=== PATIENT | male | born 1980 | race Hispanic/Latino ===

== ENCOUNTER 2020-07-14 08:13 | Observation (INO) | payer MEDICAID, SELFPAY ==
[2020-07-14] VITALS (12 sets, daily range): BP systolic 113–144; BP diastolic 66–94; PULSE 76–89; RESP 16–22; TEMP 36.9–37; O2SAT 96–98; BMI 25.4
--- NOTE | ~2020-07-14 | CT_ITS ---
EXAMINATION: CT abdomen pelvis w con DATE: 07/14/2020 10:34 INDICATION: Abdominal pain TECHNIQUE: Computed tomography (CT) of the abdomen and pelvis was performed with 100 mL Omnipaque-350 intravenous contrast. Automated exposure control and iterative reconstruction technique were employe d. The dose-length product was 348.09 mGy-cm. COMPARISON: None FINDINGS: Lung bases are clear. Heart size is normal. No pericardial or pleural effusion. The distal esophagus is prominently dilated to up to 6.5 cm in diameter and fluid-filled with diffuse edematous-appearing wall thickening which could be related to reflux esophagitis. Postoperative changes are seen at the g astroesophageal junction. Additional surgical clip in the region of the left manjula hepatis. Liver, ga llbladder, spleen, pancreas, bilateral adrenal glands and kidneys are normal. Multiple fluid-filled b ut not frankly dilated loops of small bowel which measure up to a maximal 2.8 cm in diameter but whic h tapers gradually in the mid ileum with no discrete transition to suggest obstruction and this could be more consistent with an ileus. Small amount of pseudo-feces scattered throughout the more distal aspect of the fluid-filled small bowel consistent with delayed transit. Colon and appendix are unrema rkable. Bilateral fat-containing inguinal hernias, small on the right and large extending to the scro haydne on the left. Bladder is normal. No free intraperitoneal gas or fluid. No pathologically enlarged abdominal or pelvic lymphadenopathy. IMPRESSION: 1. Fluid-filled and prominently dilated distal esophagus with diffuse edematous wall thickening consi stent with reflux esophagitis. This suggests some degree of either mechanical or functional obstructi on at the level the gastroesophageal junction where there are postoperative changes. Correlate with c linical/surgical history and if not previously evaluated consider further evaluation with endoscopy. 2. Multiple fluid-filled but not technically dilated small bowel without discrete transition point to suggest obstruction most likely representing a reactive ileus. 3. Small right and large left fat-containing inguinal hernias. Reviewed, dictated and finalized at location A. ETING PROGRAM COORDINATOR IMPRESSION: 1. Fluid-filled and prominently dilated distal esophagus with diffuse edematous wall thickening consistent with reflux esophagitis. This suggests some degree of either mechanical or functional obstruction at the level the gastroesophagea l junction where there are postoperative changes. Correlate with clinical/surgi vianey history and if not previously evaluated consider further evaluation with en doscopy. 2. Multiple fluid-filled but not technically dilated small bowel without discre te transition point to suggest obstruction most likely representing a reactive ileus. 3. Small right and large left fat-containing inguinal hernias.
[2020-07-14 09:05] LABS: Basophils Percent Auto 0.1 % (0.2-1.2); Hematocrit 45.6 % (42.0-52.0); Hemoglobin 15.9 g/dL (14.0-18.0); Immature Granulocyte Absolute 0.02 K/mm3 (0.00-0.031); Immature Granulocyte Percent A 0.2 % (0-0.5); Lymphocytes Absolute Auto 1.01 K/mm3 (0.9-3.2); Lymphocytes Percent Auto 11.8 % (18.3-44.2); Mean Corpuscular HGB Conc 34.9 g/dl (32-36); Mean Corpuscular Hemoglobin 30.2 pg (26-34); Mean Corpuscular Volume 86.5 fl (80-100); Mean Platelet Volume 9.8 fl (7.4-10.4); Monocytes Absolute Auto 0.4 K/mm3 (0.1-0.6); Monocytes Percent Auto 4.3 % (2.6-8.5); Neutrophils Absolute Auto 7.2 K/mm3 (1.3-6.7); Neutrophils Percent Auto 83.6 % (45.5-73.1); Platelet Count Result 320 k/mm3 (150-375); Red Blood Count 5.27 M/mm3 (4.6-6.20); Red Cell Distribution Width 12.9 % (11.5-14.5); White Blood Count 8.6 K/mm3 (4.5-10.0)
[2020-07-14] MEDS: SODIUM CHLORIDE 0.9% IV 1,000 ML 999 ML IV CONT (09:05)
[2020-07-14] MEDS: ONDANSETRON INJ 4 MG/2 ML VIAL IV PUSH ×2 (09:06→14:47)
[2020-07-14] MEDS: MORPHINE SULFATE (*CRX) 4 MG/ML INJ IV PUSH ×2 (09:06→11:44)
[2020-07-14 09:14] LABS: Lipase 54 U/L (23-300)
[2020-07-14 09:22] LABS: Add Urine Microscopic? YES; Appearance Urine Clear (Clear); Bacteria Urine Trace /hpf; Bilirubin Urine Negative (Negative); Blood Urine Negative (Negative); Color Urine Yellow (Yellow); Glucose Urine UA Negative (Negative); Ketones Urine 1+ mg/dL (Negative); Leukocyte Esterase Ur Negative LEU/UL (Negative); Mucus Urine Heavy /lpf; Nitrate Urine Negative (Negative); Protein Urine 2+ mg/dL (Negative); Squamous Epithelial Cell Urine Rare /hpf (Few); WBC Urine 0-3 /hpf
[2020-07-14 09:23] LABS: Specific Grav Ur 1.035 (1.001-1.035)
[2020-07-14 09:58] LABS: Alanine Aminotransferase 30 U/L (4-50); Albumin Level 4.8 g/dL (3.5-5.1); Alkaline Phosphatase 84 U/L (38-126); Anion Gap 12 mmol/L (8-16); Aspartate Amino Transferase 34 U/L (17-59); Bilirubin,Total 0.8 mg/dL (0.2-1.3); Blood Urea Nitrogen 20 mg/dL (9-20); Calcium 10.1 mg/dL (8.4-10.2); Carbon Dioxide 21 mmol/L (22-30); Chloride 108 mmol/L (98-107); Estimated CRCL calculation 90 ml/min; Estimated Glomerular Filt Rate > 60; Glucose 154 mg/dL (75-110); Potassium 3.8 mmol/L (3.4-5.0); Sodium 141 mmol/L (137-145)
--- NOTE | 2020-07-14 10:13 | ED.GENADULT ---
HPI - General Adult General Chief complaint: Abdominal Pain Stated complaint: ABD Pain, Vomiting Time Seen by Provider: 07/14/20 08:22 History of Present Illness HPI narrative: Patient 39-year-old gentleman who presents the emergency department with chief complaint of abdominal pain. The patient states for the last several days has been having discomfort throughout his abdomen. Patient states it is periumbilical reports that is not improved by anything reports is worsened whenever he walks or when he hits bumps in the vehicle. Patient denies fever denies chills denies vomiting or diarrhea. Related Data Home Medications Medication Instructions Recorded Confirmed ranitidine HCl 75 mg PO DAILY 07/14/20 07/14/20 Allergies Allergy/AdvReac Type Severity Reaction Status Date / Time No Known Allergies Allergy Verified 07/14/20 15:00 Review of Systems Review of Systems: Narrative: A 10 system review of systems was completed on the patient and is negative except for what is stated in the HPI. Nursing and ancillary documentation was reviewed. [facility] Social History Social History Smoking status: Never smoker Second hand tobacco smoke exposure: Yes (mother) Alcohol intake: former Substance use: never Substance use type: does not use Spiritual care concerns: No Comments Patient denies past medical history Social history the patient denies smoking or illicit drug use Exam Narrative: Exam Narrative: GENERAL: Well-appearing, well-nourished, and in no acute distress. HEAD: Normocephalic, atraumatic. EYES: PERRLA and EOMI. ENT: Nares clear, no rhinorrhea or epistaxis. Mucous membranes moist. NECK: Supple. CHEST: Clear to auscultation. No respiratory distress. HEART: Regular rate and rhythm. No murmur heard. Normal peripheral pulses. ABDOMEN: Soft, diffusely tender to palpation, nondistended, normal active bowel sounds. EXTREMITIES: Normal range of motion. No edema. SKIN: Warm, dry, no rash. NEURO: No focal deficits. Alert and oriented x3. PSYCH: Normal mood and affect. Course Vital Signs Vital signs: Vital Signs Pulse Rate 82 07/14/20 08:35 Respiratory Rate 22 H 07/14/20 08:35 Blood Pressure 144/88 H 07/14/20 08:35 Pulse Oximetry 98 07/14/20 08:35 Temperature 37.0 C 07/14/20 14:29 Pulse Rate 78 07/14/20 14:29 Respiratory Rate 18 07/14/20 14:29 Blood Pressure 123/83 07/14/20 14:29 Pulse Oximetry 98 07/14/20 14:29 Medical Decision Making Vital Signs Vital Signs: Vital Signs Pulse Rate 82 07/14/20 08:35 Respiratory Rate 22 H 07/14/20 08:35 Blood Pressure 144/88 H 07/14/20 08:35 Pulse Oximetry 98 07/14/20 08:35 Temperature 37.0 C 07/14/20 14:29 Pulse Rate 78 07/14/20 14:29 Respiratory Rate 18 07/14/20 14:29 Blood Pressure 123/83 07/14/20 14:29 Pulse Oximetry 98 07/14/20 14:29 Lab Data Result diagrams: 07/14/20 08:59 07/14/20 10:26 Labs: Lab Results 07/14/20 07/14/20 07/14/20 Range/Units 08:59 08:59 08:59 WBC 8.6 (4.5-10.0) K/mm3 RBC 5.27 (4.6-6.20) M/mm3 Hgb 15.9 (14.0-18.0) g/dL Hct 45.6 (42.0-52.0) % MCV 86.5 (80-100) fl MCH 30.2 (26-34) pg MCHC 34.9 (32-36) g/dl RDW 12.9 (11.5-14.5) % Plt Count 320 (150-375) k/mm3 MPV 9.8 (7.4-10.4) fl Immature Gran % (Auto) 0.2 (0-0.5) % Neut % (Auto) 83.6 H (45.5-73.1) % Lymph % (Auto) 11.8 L (18.3-44.2) % [place] % (Auto) 4.3 (2.6-8.5) % Eos % (Auto) 0.0 (0-4.4) % Baso % (Auto) 0.1 L (0.2-1.2) % Lymph # (Auto) 1.01 (0.9-3.2) K/mm3 [place] # (Auto) 0.4 (0.1-0.6) K/mm3 Eos # (Auto) 0.0 (0-0.3) K/mm3 Baso # (Auto) 0.0 (0.0-0.1) K/mm3 Abs Immat Gran (auto) 0.02 (0.00-0.031) K/mm3 Absolute Neuts (auto) 7.2 H (1.3-6.7) K/mm3 Absolute Nucleated RBC 0.0 (0.0-0.012) K/mm3 Nucleated RBC % 0.0 (0.0-0.2) % Sodium 141 (137-145) mmol/L Po
[2020-07-14 10:28] LABS: Estimated CRCL calculation 90 ml/min; Estimated Glomerular Filt Rate > 60
--- NOTE | 2020-07-14 14:01 | ADMGEN ---
This patient, Sue Chandler, was admitted to 2 Medical Room 260-01. Patient/family oriented to hospital policies and general routines including ID bracelet, bed and alarms, visiting hours, pain management, procedures, bathroom and other care routines, personal items, smoking policy, room service/diet, and visiting hours. Information on how to activate the Rapid Response Team has been discussed. Patient/Family are encouraged to report perceived risks to care and to ask questions if they do not understand what they are told or what they should do.
--- NOTE | 2020-07-14 14:21 | PM.IMHP ---
H&P: HPI History of Present Illness Date/Time: 07/14/20 14:21 Chief Complaint: Epigastric pain. Narrative: Sue Chandler is a 39 year old male with PMHx significant for Jim Fundoplication roughly 20 years ago, chronic dysphagia to solids, bouts of n/v/abdominal pain recurrent. Patient presented to ED after he had n/v/abdominal pain all night this started in the morning that day, according to patient he was told dagoberto then that he had Jonathan's esophagus . No weight loss, no diarrhea, no constipation, no hematemesis, no melena, no fevers, no rigors, no chills. Pain is localized to the epigastric area radiating to both flanks. Patient was found to have a dilated esophagus and food retention however patient states that the food particle wre form recent meals. Preliminary work up was significant for a dilated Esophagus. Review of Systems Review of Systems: Narrative: Abdominal pain/n/v Constitutional: Comments: no weight loss, no fevers, no rigors, no chills. ENT: Comments: no nasal congestion. Cardiovascular: Comments: no pnd, no orthopnea. Respiratory: Comments: no sob, no cough, no sputum production Gastrointestinal: Comments: n/v/abdominal pain Musculoskeletal: Comments: no muscle aches or pains. Integumentary/Breasts: Comments: no rashes. Neurologic: Comments: no sensory motor deficit. PENDING SALE TO [facility] Social History Social History Smoking status: Never smoker Second hand tobacco smoke exposure: Yes (mother) Alcohol intake: former Substance use: never Substance use type: does not use Spiritual care concerns: No Meds Home Medications and Allergies Home Medications Medication Instructions Recorded Confirmed Type ranitidine HCl 75 mg PO DAILY 07/14/20 07/14/20 History Allergies Allergy/AdvReac Type Severity Reaction Status Date / Time No Known Allergies Allergy Verified 07/14/20 15:00 Vital Signs Vital Signs - 24 hr 07/14/20 08:35 07/14/20 09:06 07/14/20 09:30 Pulse Rate 82 89 81 Respiratory Rate 22 H 22 H 22 H Blood Pressure 144/88 H 134/89 128/94 H Pulse Oximetry 98 97 98 07/14/20 10:00 07/14/20 10:15 07/14/20 11:44 Pulse Rate 76 77 80 Respiratory Rate 18 16 20 Blood Pressure 128/81 113/66 116/86 Pulse Oximetry 98 98 97 Exam Narrative: Exam Narrative: Sitting in bed. Const: General: comfortable, no acute distress, alert, awake and Physically active Nutritional Appearance: average body habitus Orientation/consciousness: patient oriented x3 Limitations: language barrier (Other than Afghan) HENMT: Head: normal to inspection and normocephalic Ears: hearing grossly normal bilaterally General nose exam: Normal external nose present Face and sinus: normal facial exam Eyes: General: appearance normal, both eyes and all related structures Pupils: Equal, round and reactive pupils present EOM: EOMs intact bilaterally Neck: Neck: no lymphadenopathy, supple and no JVD Lymphatic: no lymphadenopathy noted Resp: Effort & Inspection: able to speak in complete sentences Auscultation: clear to auscultation bilaterally Cardio: Jugular venous distension: no JVD Rate: regular rate Rhythm: regular rhythm GI: GI Palp: Yes Soft to palpation, Yes Tenderness to palpation present (GI) (diffuse ), Yes No hepatosplenomegaly present and Yes Other GI palpation findings present (no rebound tenderness, no guarding.) Skin: General skin exam: normal color Rashes: no rashes Neuro: General: patient oriented x3 and CN's II-XI intact bilaterally Cranial nerves: Yes CN's II-XII intact bilaterally and Yes Equal, round and reactive pupils present Cognition (Neuro): normal cognition Motor exam (neuro): 5/5 motor strength present throughout Sensory Exam: normal sensation Extrem: General: normal to inspection and no pedal edema H&P: Results Labs Labs: Short CBC 07/14/20 Range/Units 08:59 WBC 8.6 (4.5-10.0) K/mm3 Hgb 15.9 (14.0-18.0) g/dL Hct 45.6 (42.0-52.0) % Plt Count 3
[2020-07-14] MEDS: HYDROmorphone HCL INJ (*CRX) 1 MG/ML SYR (14:37)
[2020-07-14] MEDS: LORazepam INJ (*CRX) 2 MG/ML VIAL 0.5 MG IV PUSH (14:48)
[2020-07-14] MEDS: LACTATED RINGERS 1,000 ML 75 ML IV CONT (14:48)
--- NOTE | 2020-07-14 15:00 | PC.NURSE ---
Yolie spanish interpreter/translator utilized when Dr. Gama here to see patient.
--- NOTE | 2020-07-14 16:07 | WPDGICN ---
Assessment and Plan Assessment and plan (1) Epigastric abdominal pain: Code(s): R10.13 - Epigastric pain Status: Acute Assessment and Plan: Patient reports epigastric pain worse after eating suspicious for dyspepsia. Could represent an ulcer. Be given his history of esophageal disease likely related to acid reflux. Plan is for IV proton pump inhibitor. Patient will be kept NPO until further evaluation began be accomplished. Clinically he appears to swallow liquids without difficulty but food impaction certainly is a possibility this may be relieved present. (2) Abnormal CT scan: Code(s): R93.89 - Abnormal findings on diagnostic imaging of other specified body structures Status: Acute Assessment and Plan: CT scan suggest deformity and swelling of the lower esophagus. This is likely related to previous surgery the exact nature of surgery is unclear. Suspect this may have been a fundoplication type surgery. Plan to evaluate with EGD which will be per informed in the morning. IV rehydration will be accomplished was evening. GI Consult Note Consult date/time: 07/14/20 16:07 HPI: Sue Chandler is a 39 year old male at the request of the emergency room. Patient is and speaks only Latvian. History is obtained with the assistance of an asl interpreter. Patient reports several day history of mid epigastric pain. He states this is rather severe for this reason went to the emergency room. Patient has a distant history of esophageal surgery. He reports having had narrowed esophagus difficulty swallowing causing him to have esophageal surgery. The nature of this is somewhat unclear. He apparently has been maintained on omeprazole recently. He continues take this medications regularly. Over the last several days has had epigastric pain has become rather severe. It is worse after eating. Became particularly worse last evening causing him to go to the emergency room today. Patient states currently food will pass into his stomach without difficulty. It is very infrequent that he is slow passage of food. Upon presenting to the emergency room today he had some vomiting and nausea but is no longer vomiting and nauseous on the floor. He did require Dilaudid for pain control. Patient denies any bleeding or weight loss. Review of Systems Review of Systems: All systems reviewed & are unremarkable except as noted in HPI and below PMFSH Social History Social History Smoking status: Never smoker Second hand tobacco smoke exposure: Yes (mother) Alcohol intake: former Substance use: never Substance use type: does not use Spiritual care concerns: No Meds Home Medications and Allergies Home Medications Medication Instructions Recorded Confirmed Type ranitidine HCl 75 mg PO DAILY 07/14/20 07/14/20 History Allergies Allergy/AdvReac Type Severity Reaction Status Date / Time No Known Allergies Allergy Verified 07/14/20 15:00 Vital Signs Vital Signs - 24 hr 07/14/20 08:35 07/14/20 09:06 07/14/20 09:30 Temperature Pulse Rate 82 89 81 Respiratory Rate 22 H 22 H 22 H Blood Pressure 144/88 H 134/89 128/94 H Pulse Oximetry 98 97 98 07/14/20 10:00 07/14/20 10:15 07/14/20 11:44 Temperature Pulse Rate 76 77 80 Respiratory Rate 18 16 20 Blood Pressure 128/81 113/66 116/86 Pulse Oximetry 98 98 97 07/14/20 14:29 Temperature 98.6 F Pulse Rate 78 Respiratory Rate 18 Blood Pressure 123/83 Pulse Oximetry 98 Exam Narrative: Exam Narrative: Patient is alert comfortable at rest. Vital signs are stable. HEENT exam reveals no icterus. Lungs are clear to auscultation and percussion. Heart is without murmur or extra sounds. Abdominal exam currently soft nontender with no organomegaly. He does reported receiving pain medications earlier this afternoon. There is a surgical scar in mid epigastric area. Extremities are without clubbing cyanosis or edema. Resul
--- NOTE | 2020-07-14 18:13 | PC.NURSE ---
EGD explained to patient by Dr. 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 Patient signed consent form and denies further questions.
[2020-07-14] MEDS: PANTOPRAZOLE SODIUM IV 40 MG VIAL IV PUSH (21:31)
[2020-07-15] VITALS (10 sets, daily range): BP systolic 82–124; BP diastolic 51–83; PULSE 65–78; RESP 14–16; TEMP 36.3–36.8; O2SAT 96–100
[2020-07-15] MEDS: LACTATED RINGERS 1,000 ML 75 ML IV CONT ×2 (04:21→21:45)
--- NOTE | 2020-07-15 06:38 | PC.NURSE ---
To GI Lab per [wheelchair], IV [20g LFA]. Report given to [Love LUCAS].
[2020-07-15] MEDS: LACTATED RINGERS 1,000 ML 150 ML IV CONT (06:40)
--- NOTE | 2020-07-15 07:32 | WPDANESEPPF ---
Anes - Initial Pre Proc Eval Procedure: Operation Date: 07/15/20 09:00 Proposed Procedures p Esophagogastroduodenoscopy - Wyatt Gama MD Date/Time: 07/15/20 07:32 Surgeon: Patricia Bhandari MD Pre Op Diagnosis: esophageal stricture/abdominal pain Patient Data Age: 39 Gender: M Height: 5 ft 6 in Weight: 71.6 kg Last Vital Signs Temp 98.0 F 07/15/20 06:38 Pulse 77 07/15/20 06:38 Resp 16 07/15/20 06:38 BP 112/64 07/15/20 06:38 Pulse Ox 96 07/15/20 06:38 Allergies Allergy/AdvReac Type Severity Reaction Status Date / Time No Known Allergies Allergy Verified 07/15/20 06:37 Home Medications Medication Instructions Recorded Confirmed Type ranitidine HCl 75 mg PO DAILY 07/14/20 07/14/20 History Laboratory Tests 07/14/20 07/14/20 07/14/20 08:59 08:59 08:59 WBC 8.6 K/mm3 K/mm3 (4.5-10.0) RBC 5.27 M/mm3 M/mm3 (4.6-6.20) Hgb 15.9 g/dL g/dL (14.0-18.0) Hct 45.6 % % (42.0-52.0) MCV 86.5 fl fl (80-100) MCH 30.2 pg pg (26-34) MCHC 34.9 g/dl g/dl (32-36) RDW 12.9 % % (11.5-14.5) Plt Count 320 k/mm3 k/mm3 (150-375) MPV 9.8 fl fl (7.4-10.4) Immature Gran % (Auto) 0.2 % % (0-0.5) Neut % (Auto) 83.6 % H % (45.5-73.1) Lymph % (Auto) 11.8 % L % (18.3-44.2) [place] % (Auto) 4.3 % % (2.6-8.5) Eos % (Auto) 0.0 % % (0-4.4) Baso % (Auto) 0.1 % L % (0.2-1.2) Lymph # (Auto) 1.01 K/mm3 K/mm3 (0.9-3.2) [place] # (Auto) 0.4 K/mm3 K/mm3 (0.1-0.6) Eos # (Auto) 0.0 K/mm3 K/mm3 (0-0.3) Baso # (Auto) 0.0 K/mm3 K/mm3 (0.0-0.1) Abs Immat Gran (auto) 0.02 K/mm3 K/mm3 (0.00-0.031) Absolute Neuts (auto) 7.2 K/mm3 H K/mm3 (1.3-6.7) Absolute Nucleated RBC 0.0 K/mm3 K/mm3 (0.0-0.012) Nucleated RBC % 0.0 % % (0.0-0.2) Sodium 141 mmol/L mmol/L (137-145) Potassium 3.8 mmol/L mmol/L (3.4-5.0) Chloride 108 mmol/L H mmol/L (98-107) Carbon Dioxide 21 mmol/L L mmol/L (22-30) Anion Gap 12 mmol/L mmol/L (8-16) BUN 20 mg/dL mg/dL (9-20) Creatinine 0.70 mg/dL mg/dL (0.7-1.3) Estim Creat Clear Calc 90 ml/min ml/min Estimated GFR > 60 (59 - ) Glucose 154 mg/dL H mg/dL (75-110) Calcium 10.1 mg/dL mg/dL (8.4-10.2) Total Bilirubin 0.8 mg/dL mg/dL (0.2-1.3) AST 34 U/L U/L (17-59) ALT 30 U/L U/L (4-50) Alkaline Phosphatase 84 U/L U/L (38-126) Total Protein 8.0 g/dL g/dL (6.3-8.2) Albumin 4.8 g/dL g/dL (3.5-5.1) Lipase 54 U/L U/L (23-300) Urine Color Urine Appearance Urine pH Ur Specific [place] Urine Protein Urine Glucose (UA) Urine Ketones Ur Blood (Man) Urine Nitrate Urine Bilirubin Urine Urobilinogen Leukocyte Esterase Rfl Urine RBC Urine WBC Ur Squamous Epith Cells Urine Bacteria Urine Mucus 07/14/20 07/14/20 09:12 10:26 WBC RBC Hgb Hct MCV MCH MCHC RDW Plt Count MPV Immature Gran % (Auto) Neut % (Auto) Lymph % (Auto) [place] % (Auto) Eos % (Auto) Baso % (Auto) Lymph # (Auto) [place] # (Auto) Eos # (Auto) Baso # (Auto) Abs Immat Gran (auto) Absolute Neuts (auto) Absolute Nucleated RBC Nucleated RBC % Sodium Potassium Chloride Carbon Dioxide Anion Gap BUN
--- NOTE | 2020-07-15 07:37 | SUR.OPER ---
07[address] [facility] INTERPRETOR SERVICE USED IN PRE-OP TO DISCUSS PROCEDURE WITH PATIENT AND FOR PATIENT TO ASK QUESTIONS. URMILA LUCAS, Maribell MUÑIZ CRNA , AND DR. DORSEY ALL PRESENTS FOR THE DISCUSSION.
[2020-07-15] MEDS: PANTOPRAZOLE SODIUM IV 40 MG VIAL IV PUSH ×2 (09:30→21:46)
--- NOTE | 2020-07-15 18:41 | PM.IMPN ---
Progress Note: A&P Assessment and Plan (1) Nausea & vomiting: Code(s): R11.2 - Nausea with vomiting, unspecified Status: Acute Assessment and Plan: Resolved S/p EGD S/p dilatation of GE junction PPI Advanced diet as tolerated. Appreciate GI note (2) Esophageal abnormality: Code(s): K22.9 - Disease of esophagus, unspecified Status: Acute Assessment and Plan: S/p Jim fundoplication Might be able to obtain medical records. 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 Subjective Date/time seen: 07/15/20 18:41 I feel good. Review of Systems Review of Systems: Narrative: No issues.Patient is s/p EGD. Constitutional: Comments: no fevers. Respiratory: Comments: no cough. Gastrointestinal: Comments: s/p EGD, no n/v Musculoskeletal: Comments: no muscle pain. Integumentary/Breasts: Comments: no rashes. Neurologic: Comments: no sensory motor deficit. Exam Narrative: Exam Narrative: Patient is lying in bed. Const: General: healthy appearing, comfortable, no acute distress, well developed, alert, awake and Physically active Nutritional Appearance: average body habitus HENMT: Head: normocephalic General nose exam: Normal external nose present Face and sinus: normal facial exam Eyes: General: appearance normal, both eyes and all related structures Pupils: Equal, round and reactive pupils present EOM: EOMs intact bilaterally Neck: Neck: no lymphadenopathy, supple and no JVD Resp: Effort & Inspection: able to speak in complete sentences Auscultation: clear to auscultation bilaterally Cardio: Jugular venous distension: no JVD Rate: regular rate Rhythm: regular rhythm GI: GI Palp: Yes Soft to palpation and Yes No hepatosplenomegaly present Skin: General skin exam: normal color Neuro: General: patient oriented x3 and CN's II-XI intact bilaterally Cranial nerves: Yes CN's II-XII intact bilaterally and Yes Equal, round and reactive pupils present Cognition (Neuro): normal cognition Motor exam (neuro): 5/5 motor strength present throughout Extrem: General: no pedal edema Objective Data Vital Signs Vital Signs: Vital Signs - 24 hr 07/14/20 21:54 07/15/20 06:00 07/15/20 06:38 Temperature 98.5 F 98.3 F 98.0 F Pulse Rate 82 78 77 Respiratory Rate 18 16 16 Blood Pressure 128/78 124/83 112/64 Pulse Oximetry 96 97 96 07/15/20 08:02 07/15/20 08:07 07/15/20 08:12 Temperature Pulse Rate 65 78 76 Respiratory Rate 14 14 Blood Pressure 82/51 L 93/54 L 98/60 L Pulse Oximetry 96 97 07/15/20 08:22 07/15/20 10:20 07/15/20 10:50 Temperature 97.5 F L Pulse Rate 72 75 Respiratory Rate 14 14 Blood Pressure 97/57 L 113/74 Pulse Oximetry 97 97 100 07/15/20 14:00 Temperature 97.5 F L Pulse Rate 72 Respiratory Rate 14 Blood Pressure 119/72 Pulse Oximetry 100 Intake/Output Intake/Output: Intake & Output 07/12/20 07/13/20 07/14/20 07/15/20 23:59 23:59 23:59 23:59 Intake Total 1245 1955 Output Total 350 750 Balance 895 1205 Meds/Results Medications: Active Medications Generic Name Dose Route Start Last Admin Trade Name Freq PRN Reason Stop Dose Admin Al Hydrox/Mg Hydrox/Simethicone 30 ml 07/14/20 14:17 Mag Hydrox/Al Hydrox/Simeth 30 Ml Udc PO QID PRN Dyspepsia Hydromorphone HCl 1 mg 07/14/20 14:26 Hydromorphone Hcl Inj (*Crx) 1 Mg/Ml Syr IV PUSH Q3H PRN Pain Rated 7-10 Lactated Ringer's 1,000 mls @ 75 mls/hr 07/14/20 14:20 07/15/20 04:21 Lr - Lactated Ringers Iv IV CONT 75 mls/hr .[id number] WILLIAM Administration Magnesium Hydroxide 30 ml 07/14/20 14:17 Magnesium Hydroxide Susp 30 Ml Udc PO DAILY PRN Constipation Naloxone HCl 0.1 mg 07/14/20 14:26 Naloxone Hcl 0.4 Mg/Ml Vial IV PUSH
[2020-07-16 06:00] VITALS: BP 112/60; PULSE 91; RESP 16; TEMP 36.3; O2SAT 99
[2020-07-16] MEDS: PANTOPRAZOLE SODIUM IV 40 MG VIAL IV PUSH (08:51)
--- NOTE | 2020-07-16 10:31 | WPDANESPN ---
Anes - Prog Note Post-Op Date/Time: 07/16/20 10:31 Cardiovascular status: normal Respiratory status: normal Airway patency: baseline Mental status: baseline Post-Op hydration status: normal Vital Signs: Last Vital Signs Temp 36.3 C L 07/16/20 06:00 Pulse 91 07/16/20 06:00 Resp 16 07/16/20 06:00 BP 112/60 07/16/20 06:00 Pulse Ox 99 07/16/20 06:00 Pain Score (VAS): 07/03 I/O: Intake & Output 07/15/20 07/16/20 07/16/20 23:59 07:59 15:59 Intake Total 1540 350 Output Total 800 Balance 1540 -450 Laboratory Tests 07/14/20 08:59 07/14/20 10:26 Post-procedural complaints: none Patient Feedback: Patient satisfied with anesthetic care.
--- NOTE | 2020-07-16 11:00 | WPDGIPROGNO ---
Progress Note: A&P Assessment and Plan (1) Esophageal abnormality: Code(s): K22.9 - Disease of esophagus, unspecified Status: Acute Assessment and Plan: patient says that had esophageal surgery when he used to live in [place] in his 20's, apparently had dysmotility but unknown exact etiology findings EGD showed dilated esophagus ? achalasia (2) Erosive esophagitis: Code(s): K22.10 - Ulcer of esophagus without bleeding Status: Acute Assessment and Plan: he can go home today with ppi daily he will follow up with Dr Gama in few more weeks (3) Nausea & vomiting: Code(s): R11.2 - Nausea with vomiting, unspecified Status: Acute Assessment and Plan: resolved, eating ok now (4) Epigastric abdominal pain: Code(s): R10.13 - Epigastric pain Status: Acute (5) Abnormal CT scan: Code(s): R93.89 - Abnormal findings on diagnostic imaging of other specified body structures Status: Acute Subjective Date/time seen: 07/16/20 11:00 Interval history: he is feeling much better now, back to his baseline and ready to go home EGD by Dr Gama found erosive esophagitis and dilated distal esophagus with evidence of previous surgery Review of Systems Review of Systems: All systems reviewed & are unremarkable except as noted in HPI and below Exam Const: General: comfortable and no acute distress HENMT: General nose exam: Normal nares present Eyes: General: appearance normal, both eyes and all related structures Neck: Neck: no JVD Resp: Auscultation: clear to auscultation bilaterally Cardio: Rate: regular rate Rhythm: regular rhythm GI: Inspection: non-distended GI Palp: Yes Soft to palpation Skin: General skin exam: normal color Neuro: General: gait normal Speech: normal speech Extrem: General: normal to inspection Psych: Mental Status: mental status grossly normal Objective Data Vital Signs Vital Signs: Vital Signs - 24 hr 07/15/20 14:00 07/15/20 22:12 07/16/20 06:00 Temperature 97.5 F L 97.4 F L 97.3 F L Pulse Rate 72 68 91 Respiratory Rate 14 16 16 Blood Pressure 119/72 120/66 112/60 Pulse Oximetry 100 99 99 Intake/Output Intake/Output: Intake & Output 07/13/20 07/14/20 07/15/20/23/21 23:59 23:59 23:59 23:59 Intake Total 1245 2955 1590 Output Total 350 750 800 Balance 895 2205 790 Meds/Results Medications: Active Medications Generic Name Dose Route Start Last Admin Trade Name Freq PRN Reason Stop Dose Admin Al Hydrox/Mg Hydrox/Simethicone 30 ml 07/14/20 14:17 Mag Hydrox/Al Hydrox/Simeth 30 Ml Udc PO QID PRN Dyspepsia Hydromorphone HCl 1 mg 07/14/20 14:26 Hydromorphone Hcl Inj (*Crx) 1 Mg/Ml Syr IV PUSH Q3H PRN Pain Rated 7-10 Lactated Ringer's 1,000 mls @ 75 mls/hr 07/14/20 14:20 07/16/20 11:03 Lr - Lactated Ringers Iv IV CONT 75 mls/hr .[id number] WILLIAM Administration Magnesium Hydroxide 30 ml 07/14/20 14:17 Magnesium Hydroxide Susp 30 Ml Udc PO DAILY PRN Constipation Naloxone HCl 0.1 mg 07/14/20 14:26 Naloxone Hcl 0.4 Mg/Ml Vial IV PUSH Q5MIN PRN Sedation Ondansetron HCl 4 mg 07/14/20 12:17 07/14/20 14:47 Ondansetron Inj 4 Mg/2 Ml Vial IV PUSH 4 mg Q4H PRN Administration Nausea Pantoprazole Sodium 40 mg 07/14/20 21:00 07/16/20 08:51 Pantoprazole Sodium Iv 40 Mg Vial IV PUSH 40 mg Q12HR WILLIAM Administration Radiology Results: ITS Impressions Abdomen/Pelvis CT 07/14/20 10:37 IMPRESSION: 1. Fluid-filled and prominently dilated distal esophagus with diffuse edematous wall thickening consistent with reflux esophagitis. This suggests some degree of either mechanical or functional obstruction at the level the gastroesophageal junction where there are postoperative changes. Correlate with clinical/surgical history and if not previously evaluated consider further evaluation with endoscopy. 2. Multiple
[2020-07-16] MEDS: LACTATED RINGERS 1,000 ML 75 ML IV CONT (11:03)
--- NOTE | 2020-07-16 12:06 | PM.DS ---
DS: Admitting Diagnosis Admitting Diagnosis Admitting Diagnosis: (1) Abnormal CT scan Esophageal dilatation. (2) Epigastric abdominal pain: (3) Esophageal abnormality: Remote history of Jim fundoplication (4) Nausea & vomiting: DS: Discharge Diagnosis Discharge Diagnosis (1) Esophageal abnormality: Code(s): K22.9 - Disease of esophagus, unspecified Status: Acute (2) Erosive esophagitis: Code(s): K22.10 - Ulcer of esophagus without bleeding Status: Acute (3) Epigastric abdominal pain: Code(s): R10.13 - Epigastric pain Status: Acute (4) Nausea & vomiting: Code(s): R11.2 - Nausea with vomiting, unspecified Status: Acute (5) Abnormal CT scan: Code(s): R93.89 - Abnormal findings on diagnostic imaging of other specified body structures Status: Acute (6) Dysphagia: Code(s): R13.10 - Dysphagia, unspecified Status: Acute DS: Summary Hospital Course Hospital Course: Sue Chandler is a 39 year old male with PMHx significant for Jim Fundoplication roughly 20 years ago, chronic dysphagia to solids, bouts of n/v/abdominal pain recurrent. Who presented to ED after he had n/v/abdominal pain all night this started in the morning that day, according to patient he was told dagoberto then that he had Jonathan's esophagus . No weight loss, no diarrhea, no constipation, no hematemesis, no melena, no fevers, no rigors, no chills. Pain is localized to the epigastric area radiating to both flanks. Patient was found to have a dilated esophagus and food retention however patient states that the food particle wre form recent meals. Preliminary work up was significant for a dilated Esophagus. (1) Epigastric abdominal pain: Code(s): R10.13 - Epigastric pain Status: Acute Assessment and Plan: Patient reports epigastric pain worse after eating suspicious for dyspepsia. Could represent an ulcer. Be given his history of esophageal disease likely related to acid reflux. Plan is for IV proton pump inhibitor. Patient will be kept NPO until further evaluation began be accomplished. Clinically he appears to swallow liquids without difficulty but food impaction certainly is a possibility this may be relieved (2) Abnormal CT scan: Code(s): R93.89 - Abnormal findings on diagnostic imaging of other specified body structures Status: Acute Assessment and Plan: CT scan suggest deformity and swelling of the lower esophagus. This is likely related to previous surgery the exact nature of surgery is unclear. Suspect this may have been a fundoplication type surgery. Plan to evaluate with EGD which will be per informed in the morning. IV rehydration will be accomplished GI Consult Note Consult date/time: 07/14/20 16:07 HPI: Sue Chandler is a 39 year old male at the request of the emergency room. Patient is and speaks only Mexican. History is obtained with the assistance of an art critic. Patient reports several day history of mid epigastric pain. He states this is rather severe for this reason went to the emergency room. Patient has a distant history of esophageal surgery. He reports having had narrowed esophagus difficulty swallowing causing him to have esophageal surgery. The nature of this is somewhat unclear. He apparently has been maintained on omeprazole recently. He continues take this medications regularly. Over the last several days has had epigastric pain has become rather severe. It is worse after eating. Became particularly worse last evening causing him to go to the emergency room today. Patient states currently food will pass into his stomach without difficulty. It is very infrequent that he is slow passage of food. Upon presenting to the emergency room today he had some vomiting and nausea but is no longer vomiting and nauseous on the floor. He did require Dilaudid for pain
== END 2020-07-16 13:32 | disposition home or self-care (01) ==
LOC: ANHED 08:49 → ANH2MED 13:07
PROVIDERS: Internal Medicine Gastroenterology; Admitting Provider Internal Medicine; Emergency Provider Emergency Medicine; Visit Provider Internal Medicine
PROC: 0DJ08ZZ Inspection of Upper Intestinal Tract, Via Natural or Artificial Opening Endoscopic (ICD-10-PCS; CPT 43235; principal; 2020-07-15 09:00)
DX: K22.10 Ulcer of esophagus without bleeding (principal); R13.19 Other dysphagia; K31.89 Other diseases of stomach and duodenum; R10.13 Epigastric pain; R93.89 Abnormal findings on diagnostic imaging of other specified body structures
CPT/HCPCS: 43249; 36415; 74177; 80053; 81001; 83690; 85025; 96361; 96374; 96375; 96376; 99285; C1726; C9113; G0378; G0379; J1170; J2060; J2270; J2405; J2704; J7030; J7120; Q9967

== ENCOUNTER 2020-12-30 00:53 | Observation (INO) | payer MEDICAID, SELFPAY ==
[2020-12-30] VITALS (8 sets, daily range): BP systolic 107–147; BP diastolic 57–93; PULSE 69–89; RESP 13–18; TEMP 35.9–36.8; O2SAT 93–100; BMI 24.1
--- NOTE | ~2020-12-30 | CT_ITS ---
EXAMINATION: CT abdomen pelvis wo con DATE: 12/30/2020 01:30 INDICATION: Right-sided abdominal pain TECHNIQUE: Computed tomography (CT) of the abdomen and pelvis was performed without intravenous contr ast. The dose-length product was 309.66 mGy-cm. Automated exposure control and iterative reconstructi on technique were employed. COMPARISON: CT dated 07/14/2020 FINDINGS: Dilated fluid-filled distal esophagus with abrupt termination at the gastroesophageal junct ion. There is a debris-filled stomach. There are surgical changes near the gastroesophageal junction. The liver, spleen, pancreas, Adrenal glands and kidneys are unremarkable. Gallbladder is present. There is dilated debris filled d istal small bowel, consistent with obstruction with transition in right inguinal hernia. There is a f at-containing left inguinal hernia. No acute osseous abnormality. No significant vascular abnormality . No lymphadenopathy. No free air. IMPRESSION: 1. Small bowel obstruction with transition in the right inguinal hernia. 2: Fluid-filled dilated distal esophagus with transition at the gastroesophageal junction, compatible with stricture. There are nearby surgical changes. Correlate with clinical history of surgery. Reviewed, dictated and finalized at location A. IMPRESSION: 1. Small bowel obstruction with transition in the right inguinal hernia. 2: Fluid-filled dilated distal esophagus with transition at the gastroesophagea l junction, compatible with stricture. There are nearby surgical changes. Corre late with clinical history of surgery.
[2020-12-30 01:19] LABS: Basophils Percent Auto 0.3 % (0.2-1.2); Eosinophils Absolute Auto 0.1 K/mm3 (0-0.3); Hematocrit 45.8 % (42.0-52.0); Hemoglobin 15.3 g/dL (14.0-18.0); Immature Granulocyte Absolute 0.04 K/mm3 (0.00-0.031); Immature Granulocyte Percent A 0.4 % (0-0.5); Lymphocytes Absolute Auto 2.63 K/mm3 (0.9-3.2); Lymphocytes Percent Auto 23.8 % (18.3-44.2); Mean Corpuscular HGB Conc 33.4 g/dl (32-36); Mean Corpuscular Hemoglobin 29.5 pg (26-34); Mean Corpuscular Volume 88.2 fl (80-100); Mean Platelet Volume 10.2 fl (7.4-10.4); Monocytes Absolute Auto 0.8 K/mm3 (0.1-0.6); Neutrophils Absolute Auto 7.5 K/mm3 (1.3-6.7); Neutrophils Percent Auto 67.5 % (45.5-73.1); Platelet Count Result 281 k/mm3 (150-375); Red Blood Count 5.19 M/mm3 (4.6-6.20); Red Cell Distribution Width 13.2 % (11.5-14.5)
--- NOTE | 2020-12-30 01:25 | PC.NURSE ---
pt at CT at this time.
[2020-12-30] MEDS: SODIUM CHLORIDE 0.9% IV 1,000 ML 999 ML IV CONT (01:33)
[2020-12-30] MEDS: ONDANSETRON INJ 4 MG/2 ML VIAL IV PUSH ×2 (01:33→12:17)
[2020-12-30 01:34] LABS: Alanine Aminotransferase 42 U/L (4-50); Albumin Level 4.9 g/dL (3.5-5.1); Alkaline Phosphatase 109 U/L (38-126); Anion Gap 14 mmol/L (8-16); Aspartate Amino Transferase 43 U/L (17-59); Blood Urea Nitrogen 22 mg/dL (9-20); Carbon Dioxide 21 mmol/L (22-30); Chloride 107 mmol/L (98-107); Estimated CRCL calculation 90 ml/min; Estimated Glomerular Filt Rate > 60; Glucose 126 mg/dL (75-110); Lipase 90 U/L (23-300); Potassium 3.5 mmol/L (3.4-5.0); Sodium 142 mmol/L (137-145)
[2020-12-30] MEDS: MORPHINE SULFATE (*CRX) 4 MG/ML INJ IV PUSH ×6 (01:36→19:00)
--- NOTE | 2020-12-30 01:46 | ED.GENADULT ---
HPI - General Adult General Chief complaint: Abdominal Pain Stated complaint: right sided pain Time Seen by Provider: 12/30/20 01:12 History of Present Illness HPI narrative: Patient is a 40-year-old gentleman who presents the emergency department with chief complaint of right-sided abdominal pain. Patient reports that the pain is sharp and radiates to his back reports that is not improved by anything nor is it worsened by any. Patient states that for some time he has been having some intermittent discomfort on the left side of his abdomen the patient denies nausea vomiting denies fever denies diarrhea reports he has had no prior abdominal surgeries and reports that he has no blood in his urine or dysuria Related Data Home Medications Medication Instructions Recorded Confirmed No Home Medications 12/30/20 12/30/20 Allergies Allergy/AdvReac Type Severity Reaction Status Date / Time No Known Allergies Allergy Verified 12/30/20 01:03 Review of Systems Review of Systems: Narrative: A 10 system review of systems was completed on the patient and is negative except for what is stated in the HPI. Nursing and ancillary documentation was reviewed. [facility] Past Medical History Medical History Epigastric abdominal pain Erosive esophagitis Social History Social History Smoking status: Never smoker Second hand tobacco smoke exposure: Yes (mother) Alcohol intake: former Substance use: never Substance use type: does not use Spiritual care concerns: No Exam Narrative: Exam Narrative: GENERAL: Well-appearing, well-nourished, and in no acute distress. HEAD: Normocephalic, atraumatic. EYES: PERRLA and EOMI. ENT: Nares clear, no rhinorrhea or epistaxis. Mucous membranes moist. NECK: Supple. CHEST: Clear to auscultation. No respiratory distress. HEART: Regular rate and rhythm. No murmur heard. Normal peripheral pulses. ABDOMEN: Soft, nontender, nondistended, normal active bowel sounds. EXTREMITIES: Normal range of motion. No edema. SKIN: Warm, dry, no rash. NEURO: No focal deficits. Alert and oriented x3. PSYCH: Normal mood and affect. Course Course Emergency Course: CT scan shows evidence of an inguinal hernia with possible bowel obstruction. The patient is feeling much better at this time but still has some mild discomfort. Reports that his last bowel movement was at 7 PM and he is passing gas. The case was discussed with Dr. Seay who is on-call for general surgery he will admit the patient for observation overnight and reevaluate the patient's abdominal exam in the morning Vital Signs Vital signs: Vital Signs Temperature 36.6 C 12/30/20 00:57 Pulse Rate 74 12/30/20 00:57 Respiratory Rate 18 12/30/20 00:57 Blood Pressure 147/93 H 12/30/20 00:57 Pulse Oximetry 100 12/30/20 00:57 Temperature 36.6 C 12/30/20 00:57 Pulse Rate 74 12/30/20 00:57 Respiratory Rate 18 12/30/20 00:57 Blood Pressure 147/93 H 12/30/20 00:57 Pulse Oximetry 100 12/30/20 00:57 Medical Decision Making Vital Signs Vital Signs: Vital Signs Temperature 36.6 C 12/30/20 00:57 Pulse Rate 74 12/30/20 00:57 Respiratory Rate 18 12/30/20 00:57 Blood Pressure 147/93 H 12/30/20 00:57 Pulse Oximetry 100 12/30/20 00:57 Temperature 36.6 C 12/30/20 00:57 Pulse Rate 74 12/30/20 00:57 Respiratory Rate 18 12/30/20 00:57 Blood Pressure 147/93 H 12/30/20 00:57 Pulse Oximetry 100 12/30/20 00:57 Lab Data Result diagrams: 12/30/20 01:07 12/30/20 01:07 Labs: Lab Results 12/30/20 12/30/20 Range/Units 01:07 01:07 WBC 11.0 H (4.5-10.0) K/mm3 RBC 5.19 (4.6-6.20) M/mm3 Hgb 15.3 (14.0-18.0) g/dL Hct 45.8 (42.0-52.0) % MCV 88.2 (80-100) fl MCH 29.5 (26-34) pg MCHC 33.4 (32-36) g/dl RDW 13.2
[2020-12-30 03:15] LABS: Add Urine Microscopic? YES; Amorphous Sediment Urine Few; Appearance Urine Cloudy (Clear); Bilirubin Urine Negative (Negative); Blood Urine Negative (Negative); Color Urine Yellow (Yellow); Glucose Urine UA Negative (Negative); Ketones Urine 1+ mg/dL (Negative); Leukocyte Esterase Ur Negative LEU/UL (Negative); Mucus Urine Rare /lpf; Nitrate Urine Negative (Negative); Protein Urine Negative (Negative); Specific Grav Ur 1.027 (1.001-1.035)
[2020-12-30] MEDS: HYDROmorphone HCL INJ (*CRX) 1 MG/ML SYR IV PUSH (03:49)
--- NOTE | 2020-12-30 03:58 | ADMGEN ---
This patient, Sue Chandler, was admitted to Medical Room 347-01. Patient/family oriented to hospital policies and general routines including ID bracelet, bed and alarms, visiting hours, pain management, procedures, bathroom and other care routines, personal items, smoking policy, room service/diet, and visiting hours. Information on how to activate the Rapid Response Team has been discussed. Patient/Family are encouraged to report perceived risks to care and to ask questions if they do not understand what they are told or what they should do.
[2020-12-30] MEDS: SODIUM CHLORIDE 0.9% IV 1,000 ML 125 ML IV CONT ×3 (04:09→20:57)
--- NOTE | 2020-12-30 09:41 | PM.IMHP ---
H&P: HPI History of Present Illness Date/Time: 12/30/20 09:41 Pt is a 40 y/o M presenting to ED c/o diffuse abdominal pain R>L, reflux, bloating over the last few days. Pt reports the abdominal pain is new but other sx are chronic in nature. Pt reports some mild nausea, although no emesis. Pt has been able to tolerate a diet and has had normal bowel fxn. Pt c h/o esophageal surgery in [place] although is does not know what procedure was done. Chief Complaint: abdominal pain Review of Systems Constitutional: Constitutional: Denies anorexia, Denies chills, Denies fatigue, Denies fever(s), Denies lethargy, Denies malaise, Reports poor appetite, Denies weakness, Denies weight gain and Denies weight loss Eyes: Eyes: Reports no additional eye complaints ENT: Reports system reviewed and no additional complaints, except as documented Cardiovascular: Cardiovascular: Reports no additional cardiovascular complaints Respiratory: Respiratory: Reports no additional respiratory complaints Gastrointestinal: Gastrointestinal: Reports as per HPI, Reports abdominal pain, Denies belching, Reports bloating, Denies change in bowel habits, Denies change in stool character, Denies constipation, Reports dysphagia, Denies fecal incontinence, Denies diarrhea, Denies loose stools, Reports nausea, Denies odynophagia and Denies vomiting Genitourinary: Genitourinary: Reports no additional male genitourinary complaints Musculoskeletal: Musculoskeletal: Reports no additional musculoskeletal complaints Integumentary/Breasts: Skin/Breast: Reports system reviewed and no additional complaints, except as docu Neurologic: Reports system reviewed and no additional complaints, except as documented Psychiatric: Psychiatric: Reports no additional psychiatric complaints Endocrine: Endocrine: Reports no additional endocrine complaints Hematologic/Lymphatic: Hematologic/Lymphatic: Reports no additional hematologic/lymphatic complaints Allergic/Immunologic: Allergic/Immunologic: Reports no additional allergic/immunologic complaints [facility] Past Medical History Medical History Epigastric abdominal pain Erosive esophagitis Family History Family History Father Diabetes mellitus Social History Social History Smoking status: Never smoker Second hand tobacco smoke exposure: Yes (mother) Alcohol intake: never Substance use: never Substance use type: does not use Gender identity (if verbalized by the patient): Male Sexual Orientation (if Verbalized by the Patient): Straight or Heterosexual Spiritual care concerns: No Meds Home Medications and Allergies Home Medications Medication Instructions Recorded Confirmed Type No Home Medications 12/30/20 12/30/20 History Allergies Allergy/AdvReac Type Severity Reaction Status Date / Time No Known Allergies Allergy Verified 12/30/20 04:01 Vital Signs Vital Signs - 24 hr 12/30/20 00:57 12/30/20 02:39 12/30/20 04:06 Temperature 36.6 C 36.8 C Pulse Rate 74 69 78 Respiratory Rate 18 16 Blood Pressure 147/93 H 132/87 132/74 Pulse Oximetry 100 99 99 12/30/20 06:31 12/30/20 08:10 Temperature 36.3 C L 35.9 C L Pulse Rate 73 70 Respiratory Rate 18 14 Blood Pressure 133/68 126/73 Pulse Oximetry 95 98 Exam Const: General: cooperative, comfortable and no acute distress Nutritional Appearance: average body habitus Orientation/consciousness: patient oriented x3 Limitations: no limitations HENMT: Head: normal to inspection, normocephalic and atraumatic Ears: hearing grossly normal bilaterally General nose exam: Normal external nose present Face and sinus: normal facial exam Mouth: Yes Normal oral and palatal mucosa present and Yes moist mucous membranes Eyes: General: appearance normal, both eyes and all related structu
--- NOTE | 2020-12-30 14:15 | PC.NURSE ---
On 12/30/20, the student, [Anthony Hendrickson], provided care and completed [facility] documentation on this patient. I have reviewed the student's documentation and agree with the findings.
[2020-12-30] MEDS: HYDROcodone/acetaminophen (*CRX) 5-325 MG TABLET 1 TAB PO (15:43)
[2020-12-31] MEDS: SODIUM CHLORIDE 0.9% IV 1,000 ML 125 ML IV CONT (05:39)
[2020-12-31 05:56] VITALS: BP 96/58; PULSE 72; RESP 16; TEMP 36.2; O2SAT 97
--- NOTE | 2020-12-31 10:38 | P.DS_ITS ---
DS: Admitting Diagnosis Admitting Diagnosis Admitting Diagnosis: Small-bowel obstruction, incarcerated right inguinal hernia, esophageal stricture DS: Discharge Diagnosis Discharge Diagnosis (1) Partial small bowel obstruction: Code(s): K56.600 - Partial intestinal obstruction, unspecified as to cause Status: Acute (2) Incarcerated right inguinal hernia: Code(s): K40.30 - Unilateral inguinal hernia, with obstruction, without gangrene, not specified as recurrent Status: Acute (3) Esophageal stricture: Code(s): K22.2 - Esophageal obstruction Status: Acute DS: Summary Hospital Course Reason for hospitalization: incarcerated right inguinal hernia, small-bowel obstruction Hospital Course: this is a 40-year-old man who presented to the emergency department with abdominal pain with nausea and vomiting. A CT was obtained in the emergency department which showed evidence of a small-bowel obstruction and incarcerated right inguinal hernia containing bowel. The patient was admitted for further treatment. The hernia was able to be reduced and his symptoms began resolving. The CT also showed evidence of esophageal stricture. He has a history of an esophageal surgery in [place]. Patient does have some dysphagia, but most of his complaints were his abdominal complaints. Once the hernia was reduced, he was slowly started on a liquid diet and advanced as tolerated. He was tolerating a soft diet with any recurrent signs of hernia incarceration or bowel obstruction. He was then discharged on 12/31/2020. Status at Discharge Functional status at discharge: independent ambulation Overall status at discharge: patient is back to baseline Time Spent with Patient Time attestation: Total time spent providing and/or coordinating discharge services: Time spent: Less than 30 minutes Exam Const: General: comfortable and no acute distress Orientation/consciousness: patient oriented x3 Limitations: no limitations GI: Inspection: non-distended GI Palp: Yes Soft to palpation, No Tenderness to palpation present (GI), No Guarding due to palpation present (GI), Yes Hernia present ( Bilateral inguinal hernias, no sign of incarceration) and No Rebound tenderness present Auscultation: normal bowel sounds DS: Data Imaging Radiologist's impression: ITS Impressions Abdomen/Pelvis CT 12/30/20 01:34 IMPRESSION: 1. Small bowel obstruction with transition in the right inguinal hernia. 2: Fluid-filled dilated distal esophagus with transition at the gastroesophageal junction, compatible with stricture. There are nearby surgical changes. Correlate with clinical history of surgery. Discharge Plan Discharge Attending physician on discharge: Lucila Seay Consulting providers: Shree Archer Discharging Clinician: Zaki Stanley Patient Disposition: Home, Self-Care Activity: no straining Diet: as tolerated Patient Instructions: Antibiotic Form, Pain Management (DC), Inguinal Hernia (DC), Acute Nausea and Vomiting (DC), Acute Abdominal Pain (DC), Bowel Obstruction (DC) Stand Alone Forms: General Discharge Information Follow-up/Referrals: Lucila Seay MD [Physician] - Discharge Medications: No Action No Home Medications RF: 0 Date of admission: 12/30/20 02:02 Primary Care Provider: PHYSICIAN,ASSEM[employer] Admitting Provider: Lucila Seay Attending physician on admission: Lucila Seay Condition: Stable
== END 2020-12-31 11:40 | disposition home or self-care (01) ==
LOC: ANHED 02:01 → ANH3MED 04:21
PROVIDERS: Admitting Provider Surgery; Emergency Provider Emergency Medicine; Visit Provider Surgery
DX: K56.600 Partial intestinal obstruction, unspecified as to cause (principal); K40.30 Unilateral inguinal hernia, with obstruction, without gangrene, not specified as recurrent; K20.80 Other esophagitis without bleeding; K22.2 Esophageal obstruction
CPT/HCPCS: 36415; 74176; 80053; 81001; 83690; 85025; 96360; 96361; 96374; 96375; 96376; 99285; A9270; G0378; G0379; J1170; J2270; J2405; J7030

== ENCOUNTER 2024-12-11 17:28 | Inpatient (IN) | payer SELFPAY ==
[2024-12-11] VITALS (13 sets, daily range): BP systolic 125–149; BP diastolic 70–100; PULSE 73–89; RESP 16–29; TEMP 36.3–37.5; O2SAT 92–100; BMI 21.8
--- NOTE | ~2024-12-11 | XR_ITS ---
Exam: Abdomen 1V HISTORY: NG PLACEMENT COMPARISON: Reference is made to CT examination of the abdomen and pelvis approximately 3 hours earli er TECHNIQUE: Supine images of the lower chest and upper abdomen FINDINGS: Nasogastric tube extends into the known hiatal hernia rather than extending below the diaphragm. The tube coils within the hernia, for which withdrawal of approximately 8 to 10 cm is recommended juan or to advancement of 10 to 15 cm. IMPRESSION: NG tube coiled within patient's hiatal hernia. Withdrawal of approximately 8 to 10 cm is recommended prior to advancement of 10 to 15 cm, followed b y repeat imaging. Reviewed, dictated and finalized at location A. IMPRESSION: NG tube coiled within patient's hiatal hernia. Withdrawal of approximately 8 to 10 cm is recommended prior to advancement of 1 0 to 15 cm, followed by repeat imaging.
--- NOTE | ~2024-12-11 | XR_ITS ---
SMALL BOWEL SERIES Ordering provider: Will Son MD History: . partial sbo, hx of anabel fundoplication . Comparison: None. Technique: The patient was given oral barium. Overhead images were obtained immediately and at 15 min brent intervals until contrast arrived in the cecum. FINDINGS: REINFORCED IRONWORKER FILM: Nonobstructive bowel gas pattern. No organomegaly. No pathologic calcifications. Residual contrast is seen in the urinary bladder. Grossly dilatation of the lower esophagus is noted. Postoperative changes with fundoplication is seen in the stomach. Contrast reached the colon and 7 hours. No dilatation of the small bowel is seen. No intrinsic or extrinsic mass effect, mucosal abnormality, stricture, or sign of obstruction. IMPRESSION: The contrast reached the colon after 7 hours. No dilatation of the bowel or masses seen. No evidence of obstruction is seen also fractured obstruction. Partial obstruction cannot be completely excluded although less likely. Clinical correlation and Follow-up advised. Grossly dilated esophagus with postoperative changes suggestive of fundoplication as mentioned in his tory. Clinical correlation advised. Reviewed, dictated and finalized at location A. IMPRESSION: The contrast reached the colon after 7 hours. No dilatation of the bowel or mas ses seen. No evidence of obstruction is seen also fractured obstruction. Partia l obstruction cannot be completely excluded although less likely. Clinical shirlene elation and Follow-up advised. Grossly dilated esophagus with postoperative changes suggestive of fundoplicati on as mentioned in history. Clinical correlation advised.
--- NOTE | ~2024-12-11 | CT_ITS ---
CLINICAL INDICATION: Right upper quadrant pain COMPARISON: 12/30/2020. TECHNIQUE: Multiple contiguous axial images of the abdomen and pelvis were performed following the ad ministration of with 100 mL Omnipaque-350 intravenous contrast The dose-length product (DLP) was 259.43 mGy-cm. Automated exposure control and iterative reconstruction technique were employed. FINDINGS/OBSERVATIONS: Visualized lower thorax: The bilateral lung bases are clear. The heart is of normal size, without pericardial effusion. Large hiatal hernia is present. Liver: The liver demonstrates homogeneous enhancement and is not enlarged. Gallbladder and biliary system: The gallbladder is distended, and otherwise unremarkable. Pancreas: The pancreas enhances homogeneously without ductal dilatation. Spleen: The spleen enhances homogeneously and is not enlarged. Kidneys: The bilateral kidneys enhance symmetrically without hydronephrosis or renal calculi. Adrenal glands: Unremarkable. Gastrointestinal tract: Multiple loops of dilated fluid-filled small bowel are identified, with fecalization consistent with small bowel obstruction. Transition point is identified within the left hemipelvis. Distal small bowel is decompressed. Air is identified within the colon Appendix: The air-filled appendix is of normal caliber (axial series, images 112 through 115) Vasculature: Unremarkable. Lymph nodes: No pathologically enlarged or morphologically suspicious lymph nodes within the retroperitoneum or at the root of the mesentery. Pelvic structures: The bladder is only minimally distended, and otherwise unremarkable. The prostate gland is not enlarged. Body wall and musculoskeletal: Fat-containing (and likely omental containing) left inguinal hernia extending into the left scrotum. No significant degenerative disease within the lower thoracic or lumbosacral spine. IMPRESSION: Partial small bowel obstruction with the transition point in the left hemipelvis, as detailed above. Reviewed, dictated and finalized at location A. IMPRESSION: Partial small bowel obstruction with the transition point in the left hemipelvi s, as detailed above.
--- NOTE | 2024-12-11 17:37 | ED_ITS ---
HPI - Abdominal Pain General Chief Complaint: Abdominal Pain <Amber Tom PA-C - Last Filed: 12/11/24 17:39> Stated Complaint: ABDOMINAL PAIN <Amber Tom PA-C - Last Filed: 12/11/24 17:39> Time Seen by Provider: 12/11/24 20:35 <Amber Tom PA-C - Last Filed: 12/11/24 17:39> Focused HPI: 44 y/o M presents to the ED for RUQ abdominal pain since midnight last night. Reports associated n/v. Denies fever, chest pain, SOB, dysuria, hematuria. No prior abdominal surgeries. States he did have an EGD performed when he was younger for dysphagia, was found to have esophageal stricture which was dilated, no other findings. Reports pain is worse when he leans forward and drinks water. GENERAL: Well-appearing, well-nourished, and in no acute distress. HEAD: Normocephalic, atraumatic. CHEST: Clear to auscultation. ?No respiratory distress. ABD: TTP to epigastrium and RUQ. No rebound or rigidity. No CVA tenderness HEART: Regular rate and rhythm.? NEURO: ?Alert and oriented x3. Patient screened in triage and initial orders placed.? ?Additional care and disposition to be based upon?diagnostic testing and treatment. <Amber Tom PA-C - Last Filed: 12/11/24 17:39> History of Present Illness HPI narrative: Patient 44-year-old gentleman presents emergency department chief complaint of right upper quadrant abdominal pain. Patient reports the pain started last night around midnight reports that he has had bowel movements reports that he is passing gas reports that he has nausea. The patient does report that he had prior surgery on his abdomen many many years ago <Will Son MD - Last Filed: 12/11/24 21:27> Related Data Home Medications: Home Medications ?Medication ?Instructions ?Recorded ?Confirmed ?Last Taken ?Type No Home Medications 12/30/20 12/30/20 Unknown History <Amber Tom PA-C - Last Filed: 12/11/24 17:39> Allergies/Adverse Reactions: Allergies Allergy/AdvReac Type Severity Reaction Status Date / Time No Known Allergies Allergy Verified 12/30/20 04:01 <Amber Tom PA-C - Last Filed: 12/11/24 17:39> Review of Systems 2 Review of Systems: A 10 system review of systems was completed on the patient and is negative except for what is stated in the HPI. Nursing and ancillary documentation was reviewed. <Will Son MD - Last Filed: 12/11/24 21:27> PMFSH Past Medical History Medical History: Medical History Erosive esophagitis Epigastric abdominal pain <Amber Tom PA-C - Last Filed: 12/11/24 17:39> Family History Family History: Family History Father Diabetes mellitus <Amber Tom PA-C - Last Filed: 12/11/24 17:39> Social History Social History: Social History Smoking status: Never smoker Second hand tobacco smoke exposure: Yes (mother) Alcohol intake: never Substance use: never Substance use type: does not use Gender identity (if verbalized by the patient): Male Sexual Orientation (if Verbalized by the Patient): Straight or Heterosexual Spiritual care concerns: No <Amber Tom PA-C - Last Filed: 12/11/24 17:39> Exam 2 Narrative: GENERAL: Well-appearing, well-nourished, and in no acute distress. HEAD: Normocephalic, atraumatic. EYES: PERRLA and EOMI. ENT: Nares clear, no rhinorrhea or epistaxis. Mucous membranes moist. NECK: Supple. CHEST: Clear to auscultation. No respiratory distress. HEART: Regular rate and rhythm. No murmur heard. Normal peripheral pulses. ABDOMEN: Soft, tenderness to palpation quadrant, nondistended, normal active bowel sounds. EXTREMITIES: Normal range of motion. No edema. SKIN: Warm, dry, no rash. NEURO: No focal deficits. Alert and oriented x3. PSYCH: Normal mood and affect. <Will Son MD - Last Filed: 12/11/24 21:27> Course Vital Signs Vital signs: Vital Signs Temperature 37.5 C 12/11/24 17:33 Pulse Rate 80 12/11/24 17:33 Respiratory Rate 20 12/11/24 17:33 Blood Pressure 127/91 H 12/11/24 17:33 Pulse Oximetry 98 12/11/24 17:33 Oxygen Delivery Room Air 12/11/24 17:33 Temperature 36.6 C 12/11/24 20:42 Pulse Rate 77 12/11/24 21:01 Respiratory Rate 23 H 12/11/24 21:01 Blood Pressure 149/93 H 12/11/24 21:01 Pulse Oximetry 99 12/11/24 21:01 Oxygen Delivery Room Air 12/11/24 17:33 <Amber Tom PA-C - Last Filed: 12/11/24 17:39> Vital Signs Temperature 37.5 C 12/11/24 17:33 Pulse Rate 80 12/11/24 17:33 Respiratory Rate 20 12/11/24 17:33 Blood Pressure 127/91 H 12/11/24 17:33 Pulse Oximetry 98 12/11/24 17:33 Oxygen Delivery Room Air 12/11/24 17:33 Temperature 36.6 C 12/11/24 20:42 Pulse Rate 77 12/11/24 21:01 Respiratory Rate 23 H 12/11/24 21:01 Blood Pressure 149/93 H 12/11/24 21:01 Pulse Oximetry 99 12/11/24 21:01 Oxygen Delivery Room Air 12/11/24 17:33 <Will Son MD - Last Filed: 12/11/24 21:27> MDM - Abdominal Pain MDM Narrative Medical decision making narrative: Differential diagnosis includes bowel obstruction, intra-abdominal infection, diverticulitis, colitis, pancreatitis, cholecystitis CT scan of the abdomen pelvis showed Partial small bowel obstruction with the transition point in the left hemipelvis, as detailed above. Laboratory studies were obtained which showed a bilirubin 1.1 BUN 21 creatinine 0.7 CO2 was 17 CBC showed a white count of 9.6 Patient given IV fluids and antiemetics and pain medications emergency department Case will be discussed with the hospitalist and also surgery <Will Son MD - Last Filed: 12/11/24 21:27> Lab Data Result diagrams: 12/11/24 18:23 12/11/24 18:23 <Amber Tom PA-C - Last Filed: 12/11/24 17:39> Labs: Lab Results 12/11/24 Range/Units 18:23 WBC 9.6 (4.5-10.0) K/mm3 RBC 5.40 (4.6-6.20) M/mm3 Hgb 16.0 (14.0-18.0) g/dL Hct 47.6 (42.0-52.0) % MCV 88.1 (80-100) fl MCH 29.6 (26-34) pg MCHC 33.6 (32-36) g/dl RDW 13.3 (11.5-14.5) % Plt Count 318 (150-375) k/mm3 MPV 9.9 (7.4-10.4) fl Immature Gran % (Auto) 0.3 (0-0.5) % Neut % (Auto) 72.3 (45.5-73.1) % Lymph % (Auto) 20.1 (18.3-44.2) % Drew % (Auto) 7.1 (2.6-8.5) % Eos % (Auto) 0.1 (0-4.4) % Baso % (Auto) 0.1 L (0.2-1.2) % Lymph # (Auto) 1.94 (0.9-3.2) K/mm3 Drew # (Auto) 0.7 H (0.1-0.6) K/mm3 Eos # (Auto) 0.0 (0-0.3) K/mm3 Baso # (Auto) 0.0 (0.0-0.1) K/mm3 Abs Immat Gran (auto) 0.03 (0.00-0.031) K/mm3 Absolute Neuts (auto) 7.0 H (1.3-6.7) K/mm3 Absolute Nucleated RBC 0.000 (0.0-0.012) K/mm3 Nucleated RBC % 0.0 (0.0-0.2) % Sodium 141 (137-145) mmol/L Potassium 3.7 (3.4-5.0) mmol/L Chloride 108 H (98-107) mmol/L Carbon Dioxide 17 L (22-30) mmol/L Anion Gap 16 H (4-12) mmol/L BUN 21 H (9-20) mg/dL Creatinine 0.74 (0.7-1.3) mg/dL Estim Creat Clear Calc 105 ml/min Estimated GFR > 60 (59 - ) Glucose 127 H (65-110) mg/dL Calcium 10.3 H (8.4-10.2) mg/dL Total Bilirubin 1.1 (0.2-1.3) mg/dL AST 37 (17-59) U/L ALT 37 (6-50) U/L Alkaline Phosphatase 77 (38-126) U/L Total Protein 8.9 H (6.3-8.2) g/dL Albumin 5.2 H (3.5-5.1) g/dL Lipase 45 (23-300) U/L Urine Color Dark yellow (Yellow) Urine Appearance Clear (Clear) Urine pH 7.5 (5.0-9.0) Ur Specific [place] 1.041 H (1.001-1.035) Urine Protein 1+ H (Negative) mg/dL Urine Glucose (UA) Negative (Negative) mg/dL Urine Ketones 3+ H (Negative) mg/dL Ur Blood (Man) Negative (Negative) Urine Nitrate Negative (Negative) Urine Bilirubin 1+ H (Negative) Urine Urobilinogen 2.0 H (<2.0) mg/dL Leukocyte Esterase Rfl Trace H (Negative) JUANITO/UL Urine RBC 0-2 (0-2) /hpf Urine WBC 0-5 (0-3) /hpf Ur Squamous Epith Cells None seen (Few) /hpf Urine Bacteria None seen /hpf Urine Casts 0-2 <Amber Tom PA-C - Last Filed: 12/11/24 17:39> Lab Results 12/11/24 Range/Units 18:23 WBC 9.6 (4.5-10.0) K/mm3 RBC 5.40 (4.6-6.20) M/mm3 Hgb 16.0 (14.0-18.0) g/dL Hct 47.6 (42.0-52.0) % MCV 88.1 (80-100) fl MCH 29.6 (26-34) pg MCHC 33.6 (32-36) g/dl RDW 13.3 (11.5-14.5) % Plt Count 318 (150-375) k/mm3 MPV 9.9 (7.4-10.4) fl Immature Gran % (Auto) 0.3 (0-0.5) % Neut % (Auto) 72.3 (45.5-73.1) % Lymph % (Auto) 20.1 (18.3-44.2) % Drew % (Auto) 7.1 (2.6-8.5) % Eos % (Auto) 0.1 (0-4.4) % Baso % (Auto) 0.1 L (0.2-1.2) % Lymph # (Auto) 1.94 (0.9-3.2) K/mm3 Drew # (Auto) 0.7 H (0.1-0.6) K/mm3 Eos # (Auto) 0.0 (0-0.3) K/mm3 Baso # (Auto) 0.0 (0.0-0.1) K/mm3 Abs Immat Gran (auto) 0.03 (0.00-0.031) K/mm3 Absolute Neuts (auto) 7.0 H (1.3-6.7) K/mm3 Absolute Nucleated RBC 0.000 (0.0-0.012) K/mm3 Nucleated RBC % 0.0 (0.0-0.2) % Sodium 141 (137-145) mmol/L Potassium 3.7 (3.4-5.0) mmol/L Chloride 108 H (98-107) mmol/L Carbon Dioxide 17 L (22-30) mmol/L Anion Gap 16 H (4-12) mmol/L BUN 21 H (9-20) mg/dL Creatinine 0.74 (0.7-1.3) mg/dL Estim Creat Clear Calc 105 ml/min Estimated GFR > 60 (59 - ) Glucose 127 H (65-110) mg/dL Calcium 10.3 H (8.4-10.2) mg/dL Total Bilirubin 1.1 (0.2-1.3) mg/dL AST 37 (17-59) U/L ALT 37 (6-50) U/L Alkaline Phosphatase 77 (38-126) U/L Total Protein 8.9 H (6.3-8.2) g/dL Albumin 5.2 H (3.5-5.1) g/dL Lipase 45 (23-300) U/L Urine Color Dark yellow (Yellow) Urine Appearance Clear (Clear) Urine pH 7.5 (5.0-9.0) Ur Specific [place] 1.041 H (1.001-1.035) Urine Protein 1+ H (Negative) mg/dL Urine Glucose (UA) Negative (Negative) mg/dL Urine Ketones 3+ H (Negative) mg/dL Ur Blood (Man) Negative (Negative) Urine Nitrate Negative (Negative) Urine Bilirubin 1+ H (Negative) Urine Urobilinogen 2.0 H (<2.0) mg/dL Leukocyte Esterase Rfl Trace H (Negative) JUANITO/UL Urine RBC 0-2 (0-2) /hpf Urine WBC 0-5 (0-3) /hpf Ur Squamous Epith Cells None seen (Few) /hpf Urine Bacteria None seen /hpf Urine Casts 0-2 <Will Son MD - Last Filed: 12/11/24 21:27> Imaging Data Radiologist's impression: ITS Impressions Abdomen/Pelvis CT 12/11/24 19:24 IMPRESSION: Partial small bowel obstruction with the transition point in the left hemipelvis, as detailed above. <Amber Tom PA-C - Last Filed: 12/11/24 17:39> ITS Impressions Abdomen/Pelvis CT 12/11/24 19:24 IMPRESSION: Partial small bowel obstruction with the transition point in the left hemipelvis, as detailed above. <Will Son MD - Last Filed: 12/11/24 21:27> Discharge Plan Discharge Clinical Impression: Partial obstruction of small intestine Abdominal pain Qualifiers: Abdominal location: right lower quadrant Qualified Code(s): R10.31 - Right lower quadrant pain <Amber Tom PA-C - Last Filed: 12/11/24 17:39> Patient Disposition: Still a Patient <Amber Tom PA-C - Last Filed: 12/11/24 17:39> Condition: Stable <ESTRELLA Arndt Last Filed: 12/11/24 17:39> Instructions: Antibiotic Form <Amber Tom PA-C - Last Filed: 12/11/24 17:39> Patient Language: Stateless <Amber Tom PA-C - Last Filed: 12/11/24 17:39> Prescriptions: No Action No Home Medications <Amber Tom PA-C - Last Filed: 12/11/24 17:39> Follow-up/Referrals: PHYSIC[facility] [Primary Care Provider] - <Amber Tom PA-C - Last Filed: 12/11/24 17:39> Time of Disposition: 21:27 <Amber Tom PA-C - Last Filed: 12/11/24 17:39> 21:27 <Will Sno MD - Last Filed: 12/11/24 21:27>
[2024-12-11] MEDS: ONDANSETRON INJ 4 MG/2 ML VIAL IV PUSH ×3 (18:21→23:55)
[2024-12-11] MEDS: FAMOTIDINE 20 MG/2 ML VIAL IV PUSH (18:21)
[2024-12-11 18:33] LABS: Basophils Percent Auto 0.1 % (0.2-1.2); Eosinophils Percent Auto 0.1 % (0-4.4); Hematocrit 47.6 % (42.0-52.0); Immature Granulocyte Absolute 0.03 K/mm3 (0.00-0.031); Immature Granulocyte Percent A 0.3 % (0-0.5); Lymphocytes Absolute Auto 1.94 K/mm3 (0.9-3.2); Lymphocytes Percent Auto 20.1 % (18.3-44.2); Mean Corpuscular HGB Conc 33.6 g/dl (32-36); Mean Corpuscular Hemoglobin 29.6 pg (26-34); Mean Corpuscular Volume 88.1 fl (80-100); Mean Platelet Volume 9.9 fl (7.4-10.4); Monocytes Absolute Auto 0.7 K/mm3 (0.1-0.6); Monocytes Percent Auto 7.1 % (2.6-8.5); Neutrophils Percent Auto 72.3 % (45.5-73.1); Platelet Count Result 318 k/mm3 (150-375); Red Cell Distribution Width 13.3 % (11.5-14.5); White Blood Count 9.6 K/mm3 (4.5-10.0)
[2024-12-11 18:36] LABS: Add Urine Microscopic? YES; Appearance Urine Clear (Clear); Bacteria Urine None Seen /hpf; Bilirubin Urine 1+ (Negative); Blood Urine Negative (Negative); Color Urine Dark Yellow (Yellow); Glucose Urine UA Negative (Negative); Ketones Urine 3+ mg/dL (Negative); Leukocyte Esterase Ur Trace LEU/UL (Negative); Nitrate Urine Negative (Negative); Non Pathogenic Casts 0-2; Protein Urine 1+ mg/dL (Negative); RBC Urine 0-2 /hpf (0-2); Specific Grav Ur 1.041 (1.001-1.035); Squamous Epithelial Cell Urine None Seen /hpf (Few); WBC Urine 0-5 /hpf (0-3); pH Urine 7.5 (5.0-9.0)
[2024-12-11 18:45] LABS: Alanine Aminotransferase 37 U/L (6-50); Albumin Level 5.2 g/dL (3.5-5.1); Alkaline Phosphatase 77 U/L (38-126); Anion Gap 16 mmol/L (4-12); Aspartate Amino Transferase 37 U/L (17-59); Bilirubin,Total 1.1 mg/dL (0.2-1.3); Blood Urea Nitrogen 21 mg/dL (9-20); Calcium 10.3 mg/dL (8.4-10.2); Carbon Dioxide 17 mmol/L (22-30); Chloride 108 mmol/L (98-107); Estimated CRCL calculation 105 ml/min; Estimated Glomerular Filt Rate > 60; Glucose 127 mg/dL (65-110); Lipase 45 U/L (23-300); Potassium 3.7 mmol/L (3.4-5.0); Sodium 141 mmol/L (137-145); Total Protein 8.9 g/dL (6.3-8.2)
--- NOTE | 2024-12-11 20:43 | PC.NURSE ---
edp at bedside. pt informed he has sbo, ng tube needs to be placed, and pt will need to be admitted. patent engineer ipad used.
[2024-12-11] MEDS: SODIUM CHLORIDE 0.9% IV 1,000 ML 999 ML IV CONT ×2 (20:51→21:40)
[2024-12-11] MEDS: MORPHINE SULFATE (*CRX) 4 MG/ML INJ IV PUSH ×2 (20:51→23:54)
[2024-12-11] MEDS: SODIUM CHLORIDE 0.9% IV 1,000 ML 125 ML IV CONT (21:39)
[2024-12-11 22:34] LABS: Lactic Acid Reflex 1.6 mmol/L (0.7-2.0)
--- NOTE | 2024-12-11 22:38 | PC.NURSE ---
verbal order by EDP to hold off on ng tube insertions due to pt having a difficult time with insertions and pt not actively vomitting.
[2024-12-12] MEDS: KETOROLAC 30 MG/ML VIAL (*BKC) IV PUSH (04:36)
--- NOTE | 2024-12-12 05:18 | ADMGEN ---
This patient, Sue Rayo, was admitted to 3 [facility] Surg Room 331-02. Patient/family oriented to hospital policies and general routines including ID bracelet, bed and alarms, visiting hours, pain management, procedures, bathroom and other care routines, personal items, smoking policy, room service/diet, and visiting hours. Information on how to activate the Rapid Response Team has been discussed. Patient/Family are encouraged to report perceived risks to care and to ask questions if they do not understand what they are told or what they should do. Pt admitted to 331 with partial small bowel obstrion, right upper Quadrant pain.
[2024-12-12 05:59] VITALS: BP 101/55; PULSE 80; RESP 16; TEMP 36.2; O2SAT 95
[2024-12-12 07:09] LABS: Basophils Percent Auto 0.4 % (0.2-1.2); Eosinophils Percent Auto 0.1 % (0-4.4); Hematocrit 38.1 % (42.0-52.0); Hemoglobin 12.8 g/dL (14.0-18.0); Immature Granulocyte Absolute 0.03 K/mm3 (0.00-0.031); Immature Granulocyte Percent A 0.4 % (0-0.5); Lymphocytes Absolute Auto 1.61 K/mm3 (0.9-3.2); Lymphocytes Percent Auto 19.7 % (18.3-44.2); Mean Corpuscular HGB Conc 33.6 g/dl (32-36); Mean Corpuscular Hemoglobin 30.1 pg (26-34); Mean Corpuscular Volume 89.6 fl (80-100); Mean Platelet Volume 10.3 fl (7.4-10.4); Monocytes Absolute Auto 0.8 K/mm3 (0.1-0.6); Monocytes Percent Auto 9.3 % (2.6-8.5); Neutrophils Absolute Auto 5.7 K/mm3 (1.3-6.7); Neutrophils Percent Auto 70.1 % (45.5-73.1); Platelet Count Result 249 k/mm3 (150-375); Red Blood Count 4.25 M/mm3 (4.6-6.20); Red Cell Distribution Width 13.7 % (11.5-14.5); White Blood Count 8.2 K/mm3 (4.5-10.0)
[2024-12-12 07:27] LABS: Lactic Acid Reflex 0.9 mmol/L (0.7-2.0)
[2024-12-12] MEDS: SODIUM CHLORIDE 0.9% IV 1,000 ML 125 ML IV CONT ×2 (07:40→20:34)
[2024-12-12 07:41] LABS: Alanine Aminotransferase 22 U/L (6-50); Albumin Level 3.5 g/dL (3.5-5.1); Alkaline Phosphatase 53 U/L (38-126); Anion Gap 8 mmol/L (4-12); Aspartate Amino Transferase 27 U/L (17-59); Bilirubin,Total 1.1 mg/dL (0.2-1.3); Blood Urea Nitrogen 20 mg/dL (9-20); Carbon Dioxide 20 mmol/L (22-30); Chloride 113 mmol/L (98-107); Estimated CRCL calculation 115 ml/min; Estimated Glomerular Filt Rate > 60; Glucose 112 mg/dL (65-110); Potassium 3.7 mmol/L (3.4-5.0); Sodium 141 mmol/L (137-145); Total Protein 6.1 g/dL (6.3-8.2)
--- NOTE | 2024-12-12 12:52 | PM.IMHP ---
H&P: HPI History of Present Illness Date/Time: 12/12/24 12:52 Chief Complaint: Abdominal pain Narrative: Patient is a 44 year old male that came to the emergency department with right upper quadrant abdominal pain. Report pain is worse when leans forward and drinks water. Patient had an EGD performed when he was younger for dysphagia, was found to have an esophageal stricture that was dilated. Patient denies chest pain, palpitations, headache, dizziness, nausea, or vomiting at present. ER work up: WBC 9.6, BUN 21, anion gap 16, CO2 17. Urine pH 1.041, 1+ protein, 3+ ketones, 1+ bilirubin, 2 urobilinogen, trace leukocytes. Patient given IV fluids, antiemetics, and pain medications emergency department. CT scan of abdomen/pelvis showed: Multiple loops of dilated fluid-filled small bowel are identified, with fecalization consistent with small bowel obstruction. Transition point is identified within the left hemipelvis. Distal small bowel is decompressed. Air is identified within the colon IMPRESSION: Partial small bowel obstruction with the transition point in the left hemipelvis, as detailed above. Review of Systems Review of Systems: All systems reviewed & are unremarkable except as noted in HPI and below PMFSH Past Medical History Medical History Erosive esophagitis Epigastric abdominal pain Family History Family History Father Diabetes mellitus Social History Social History Smoking status: Never smoker Second hand tobacco smoke exposure: Yes (mother) Alcohol intake: current Substance use: never Substance use type: does not use Do You Feel Safe in your Home?: Yes Lack of Transportation: No Lack of Food: Never True Current Housing: I Have Housing Concerned About Future Housing: No Difficulty Paying Gas/Electric Bills: No Difficulty Paying for Meds: No Currently Unemployed: Decline to Answer Education: Decline to Answer Difficulty w/ Childcare or Family Care: No Gender identity (if verbalized by the patient): Male Sexual Orientation (if Verbalized by the Patient): Straight or Heterosexual Spiritual care concerns: No Meds Home Medications and Allergies Home Medications ?Medication ?Instructions ?Recorded ?Confirmed ?Type No Home Medications 12/30/20 12/12/24 History Allergies Allergy/AdvReac Type Severity Reaction Status Date / Time No Known Allergies Allergy Verified 12/30/20 04:01 Vital Signs Vital Signs - 24 hr 12/11/24 17:33 12/11/24 20:39 12/11/24 20:42 Temperature 99.5 F 97.8 F Pulse Rate 80 76 89 Respiratory Rate 20 22 H 20 Blood Pressure 127/91 H 139/100 H 139/100 H Pulse Oximetry 98 98 97 Oxygen Delivery Room Air 12/11/24 20:46 12/11/24 21:01 12/11/24 21:02 Temperature Pulse Rate 75 77 78 Respiratory Rate 24 H 23 H 29 H Blood Pressure 139/91 H 149/93 H Pulse Oximetry 98 99 98 Oxygen Delivery 12/11/24 21:15 12/11/24 21:34 12/11/24 22:55 Temperature Pulse Rate 80 86 85 Respiratory Rate 18 18 22 H Blood Pressure Pulse Oximetry 92 97 98 Oxygen Delivery 12/11/24 23:00 12/11/24 23:01 12/11/24 23:15 Temperature 97.9 F Pulse Rate 83 75 89 Respiratory Rate 21 H 23 H 16 Blood Pressure 137/92 H 125/70 Pulse Oximetry 97 98 100 Oxygen Delivery 12/11/24 23:53 12/12/24 05:59 Temperature 97.3 F L 97.1 F L Pulse Rate 73 80 Respiratory Rate 20 16 Blood Pressure 139/85 101/55 L Pulse Oximetry 98 95 Oxygen Delivery Exam Const: General: comfortable and no acute distress Eyes: Sclera: sclerae normal Resp: Effort & Inspection: normal respiratory effort Auscultation: clear to auscultation bilaterally Cardio: Rate: regular rate Rhythm: regular rhythm GI: GI Palp: Yes Soft to palpation Auscultation: normal bowel sounds Neuro: General: gait normal Speech: normal speech Extrem: General: no pedal edema Psych: Mental Status: mental status grossly normal Affect: normal affect H&P: Results Labs Labs: Short CBC 12/11/24 12/12/24 Range/Units 18:23 06:28 WBC 9.6 8.2 (4.5-10.0) K/mm3 Hgb 16.0 12.8 L D (14.0-18.0) g/dL Hct 47.6 38.1 L (42.0-52.0) % Plt Count 318 249 (150-375) k/mm3 BMP 12/11/24 12/12/24 18:23 06:28 Sodium 141 141 Potassium 3.7 3.7 Chloride 108 H 113 H Carbon Dioxide 17 L 20 L BUN 21 H 20 Creatinine 0.74 0.69 L Glucose 127 H 112 H Calcium 10.3 H 8.0 L Liver Function 12/11/24 12/12/24 Range/Units 18:23 06:28 Total Bilirubin 1.1 1.1 (0.2-1.3) mg/dL AST 37 27 (17-59) U/L ALT 37 22 (6-50) U/L Alkaline Phosphatase 77 53 (38-126) U/L Albumin 5.2 H 3.5 (3.5-5.1) g/dL Urine 12/11/24 Range/Units 18:23 Urine Color Dark yellow (Yellow) Urine Appearance Clear (Clear) Urine pH 7.5 (5.0-9.0) Ur Specific [place] 1.041 H (1.001-1.035) Urine Protein 1+ H (Negative) mg/dL Urine Glucose (UA) Negative (Negative) mg/dL Assessment and Plan Assessment and plan (1) Partial small bowel obstruction: Code(s): K56.600 - Partial intestinal obstruction, unspecified as to cause Status: Acute Assessment and Plan: CT scan abdomen pelvis was done showing some dilated loops of small bowel in a possible transition point in the left lower quadrant of the abdomen. Attempts to place a nasogastric tube overnight were unsuccessful. A small bowel water-soluble series has been initiated 4hours the images show no took passage of contrast into the colon. However the patient recently had a large semi formed bowel movement upon returning to the room. Small bowel series:FINDINGS: TIMBER DEADENER FILM: Nonobstructive bowel gas pattern. No organomegaly. No pathologic calcifications. Residual contrast is seen in the urinary bladder. Grossly dilatation of the lower esophagus is noted. Postoperative changes with fundoplication is seen in the stomach. Contrast reached the colon and 7 hours. No dilatation of the small bowel is seen. No intrinsic or extrinsic mass effect, mucosal abnormality, stricture, or sign of obstruction. IMPRESSION: The contrast reached the colon after 7 hours. No dilatation of the bowel or masses seen. No evidence of obstruction is seen also fractured obstruction. Partial obstruction cannot be completely excluded although less likely. Clinical correlation and Follow-up advised. Grossly dilated esophagus with postoperative changes suggestive of fundoplication as mentioned in history. Clinical correlation advised. Surgery following, appreciate recommendations. Clear liquid diet ordered. Quality VTE Prophylaxis VTE prophylaxis: mechanical ordered Hospitalist [facility] Advance Care Plan I have confirmed that the patient's Advanced Care Plan is present, code status is documented, or surrogate decision maker is listed in patient medical record.: Yes Medication Reconciliation I have utilized all available resources to obtain, update and review the patients current medications (includes all prescriptions, OTC, herbals, cannabis, and nutritional supplements).: Yes
--- NOTE | 2024-12-12 12:56 | P.CONS_ITS ---
Assessment and Plan Assessment and plan (1) Abdominal pain: Qualifiers: Abdominal location: right lower quadrant Qualified Code(s): R10.31 - Right lower quadrant pain Code(s): R10.9 - Unspecified abdominal pain Status: Acute Assessment and Plan: Patient had right upper quadrant abdominal pain which is now resolved. CT scan scan findings were abnormal suggestive of possible small bowel obstruction with transition point in left lower quadrant of the abdomen. Small-bowel series was started this morning and at 4:00 a.m. there is been no passage of contrast into the colon. However clinically the patient started to have a large partially formed bowel movement at the 4hour lili. His abdominal exam now is benign. He might have a partial small-bowel obstruction due to adhesions which is less likely because he had a laparoscopic procedure for his anti reflux surgery. No ventral hernias or inguinal hernias are noted. At this point will complete the small bowel series in weight for reading. I suspect there will probably be contrast: Since clinically he had a bowel movement after the last x-ray was done. Plan is get another x-ray in a couple hours. If it shows the contrast has passed into the colon at that time then I would recommend proceeding with starting clear liquids and advancing from there depending on his clinical response. I do not think he has a high-grade small-bowel obstruction at this point that would need surgical management. HPI Data of Consult Date/Time: 12/12/24 12:56 Requesting Physician: Radha Negrete DO Primary Care Provider: STONE PROCESSING MACHINE OPERATOR PHYSICIAN Consult Narrative Reason for consult: Abdominal pain, small-bowel obstruction Narrative: Sue Rayo is a 44 year old male who presented to the emergency room yesterday with complaints of right upper quadrant abdominal pain. Patient had a prior history of esophageal stricture and dilations. Information obtained through patient's family acting as litigation specialist reveals patient had a prior anti reflux surgery in [place] several years ago. Sounds like this was a Jim fundoplication. Throughout the night he has not had any further episodes of pain or nausea. White blood cell count was normal. CT scan abdomen pelvis was done showing some dilated loops of small bowel in a possible transition point in the left lower quadrant of the abdomen. This morning he was clinically stable. Attempts to place a nasogastric tube overnight were unsuccessful. A small bowel water-soluble series has been initiated 4hours the images show no took passage of contrast into the colon. However the patient recently had a large semi formed bowel movement upon returning to the room. He denies any pain at this point. He does not seem to be bloated at all. Review of Systems 2 Review of Systems: The remainder of the review of systems to include constitutional, HEENT, cardiovascular, respiratory, GI, , integumentary, musculoskeletal, endocrine, immunologic, hematologic, psychiatric, and neurologic are all negative except for which is mentioned above in the HPI. FORMERLY [facility], [facility] Past Medical History Medical History Erosive esophagitis Epigastric abdominal pain Family History Family History Father Diabetes mellitus Social History Social History Smoking status: Never smoker Second hand tobacco smoke exposure: Yes (mother) Alcohol intake: current Substance use: never Substance use type: does not use Do You Feel Safe in your Home?: Yes Lack of Transportation: No Lack of Food: Never True Current Housing: I Have Housing Concerned About Future Housing: No Difficulty Paying Gas/Electric Bills: No Difficulty Paying for Meds: No Currently Unemployed: Decline to Answer Education: Decline to Answer Difficulty w/ Childcare or Family Care: No Gender identity (if verbalized by the patient): Male Sexual Orientation (if Verbalized by the Patient): Straight or Heterosexual Spiritual care concerns: No Meds Home Medications and Allergies Home Medications ?Medication ?Instructions ?Recorded ?Confirmed ?Type No Home Medications 12/30/20 12/12/24 History Allergies Allergy/AdvReac Type Severity Reaction Status Date / Time No Known Allergies Allergy Verified 12/30/20 04:01 Vital Signs Vital Signs - 24 hr 12/11/24 17:33 12/11/24 20:39 12/11/24 20:42 Temperature 37.5 C 36.6 C Pulse Rate 80 76 89 Respiratory Rate 20 22 H 20 Blood Pressure 127/91 H 139/100 H 139/100 H Pulse Oximetry 98 98 97 Oxygen Delivery Room Air 12/11/24 20:46 12/11/24 21:01 12/11/24 21:02 Temperature Pulse Rate 75 77 78 Respiratory Rate 24 H 23 H 29 H Blood Pressure 139/91 H 149/93 H Pulse Oximetry 98 99 98 Oxygen Delivery 12/11/24 21:15 12/11/24 21:34 12/11/24 22:55 Temperature Pulse Rate 80 86 85 Respiratory Rate 18 18 22 H Blood Pressure Pulse Oximetry 92 97 98 Oxygen Delivery 12/11/24 23:00 12/11/24 23:01 12/11/24 23:15 Temperature 36.6 C Pulse Rate 83 75 89 Respiratory Rate 21 H 23 H 16 Blood Pressure 137/92 H 125/70 Pulse Oximetry 97 98 100 Oxygen Delivery 12/11/24 23:53 12/12/24 05:59 Temperature 36.3 C L 36.2 C L Pulse Rate 73 80 Respiratory Rate 20 16 Blood Pressure 139/85 101/55 L Pulse Oximetry 98 95 Oxygen Delivery Exam 2 Const: General: comfortable and no acute distress HENMT: Ears: TM's normal bilaterally Face/Nose/Sinus: Normal nares present Mouth: Yes moist mucous membranes Eyes: General: appearance normal, both eyes and all related structures S clera: sclerae normal Pupils: Equal, round and reactive pupils present E OM: EOMs intact bilaterally Neck: Neck: supple and no JVD Resp: Effort & Inspection: normal respiratory effort Auscultation: clear to auscultation bilaterally Cardio: Rate: regular rate Rhythm: regular rhythm GI: Other: Abdomen is soft and minimally distended. No tenderness to palpation in the abdomen throughout. He has well-healed laparoscopic scars in the upper abdomen which may represent surgical scars from his laparoscopic Jim fundoplication performed in [place]. No masses appreciated no ventral hernias are noted. Exam is benign. Skin: General skin exam: normal color and no rashes or lesions noted Neuro: General: gait normal Speech: normal speech Motor exam (neuro): 5 /5 motor strength present throughout Sensory Exam: normal sensation Psych: Mental Status: mental status grossly normal Affect: normal affect Results Labs 12/12/24 06:28 12/12/24 06:28 Labs: Short CBC 12/11/24 12/12/24 Range/Units 18:23 06:28 WBC 9.6 8.2 (4.5-10.0) K/mm3 Hgb 16.0 12.8 L D (14.0-18.0) g/dL Hct 47.6 38.1 L (42.0-52.0) % Plt Count 318 249 (150-375) k/mm3 BMP 12/11/24 12/12/24 18:23 06:28 Sodium 141 141 Potassium 3.7 3.7 Chloride 108 H 113 H Carbon Dioxide 17 L 20 L BUN 21 H 20 Creatinine 0.74 0.69 L Glucose 127 H 112 H Calcium 10.3 H 8.0 L Liver Function 12/11/24 12/12/24 Range/Units 18:23 06:28 Total Bilirubin 1.1 1.1 (0.2-1.3) mg/dL AST 37 27 (17-59) U/L ALT 37 22 (6-50) U/L Alkaline Phosphatase 77 53 (38-126) U/L Albumin 5.2 H 3.5 (3.5-5.1) g/dL Urine 12/11/24 Range/Units 18:23 Urine Color Dark yellow (Yellow) Urine Appearance Clear (Clear) Urine pH 7.5 (5.0-9.0) Ur Specific [place] 1.041 H (1.001-1.035) Urine Protein 1+ H (Negative) mg/dL Urine Glucose (UA) Negative (Negative) mg/dL Imaging Radiologist's impression: CT Scan Report Signed Patient: Sue Rayo : 1980 MR#: [id number] Age: 44 Acct:[id number] Loc: [facility] ADM Date: 12/11/24Attending Dr: Ordering Physician: Amber Tom PA-C Date of Service: 12/11/24 Procedure(s): CT abdomen pelvis w con Accession Number(s): [id number] cc: STONE PROCESSING MACHINE OPERATOR PHYSICIAN; Amber Tom PA-C~ CLINICAL INDICATION: Right upper quadrant pain COMPARISON: 12/30/2020. TECHNIQUE: Multiple contiguous axial images of the abdomen and pelvis were performed following the administration of with 100 mL Omnipaque-350 intravenous contrast The dose-length product (DLP) was 259.43 mGy-cm. Automated exposure control and iterative reconstruction technique were employed. FINDINGS/OBSERVATIONS: Visualized lower thorax: The bilateral lung bases are clear. The heart is of normal size, without pericardial effusion. Large hiatal hernia is present. Liver: The liver demonstrates homogeneous enhancement and is not enlarged. Gallbladder and biliary system: The gallbladder is distended, and otherwise unremarkable. Pancreas: The pancreas enhances homogeneously without ductal dilatation. Spleen: The spleen enhances homogeneously and is not enlarged. Kidneys: The bilateral kidneys enhance symmetrically without hydronephrosis or renal calculi. Adrenal glands: Unremarkable. Gastrointestinal tract: Multiple loops of dilated fluid-filled small bowel are identified, with fecalization consistent with small bowel obstruction. Transition point is identified within the left hemipelvis. Distal small bowel is decompressed. Air is identified within the colon Appendix: The air-filled appendix is of normal caliber (axial series, images 112 through 115) Vasculature: Unremarkable. Lymph nodes: No pathologically enlarged or morphologically suspicious lymph nodes within the retroperitoneum or at the root of the mesentery. Pelvic structures: The bladder is only minimally distended, and otherwise unremarkable. The prostate gland is not enlarged. Body wall and musculoskeletal: Fat-containing (and likely omental containing) left inguinal hernia extending into the left scrotum. No significant degenerative disease within the lower thoracic or lumbosacral spine. IMPRESSION: Partial small bowel obstruction with the transition point in the left hemipelvis, as detailed above. Reviewed, dictated and finalized at location A. Please be advised this is a medical document. It is intended for [id number] communication. It is written in medical language and may contain unfamiliar abbreviations or verbiage. Medical documents are intended to carry relevant information, facts as evident, and the clinical opinion of the practitioner at the time of the encounter. This report may have been done utilizing a voice recognition system. Attempts have been made to correct errors. However, there may be uncorrected grammatical, spelling, and recognition errors present. The file time of this note does not necessarily represent the time of service. Dictated By: Joycelyn Robles MD 12/11/241923 Signed By: <Electronically signed by Joycelyn Robles MD in [place]> 12/11/241935
[2024-12-12 14:00] VITALS: BP 112/68; PULSE 78; RESP 16; TEMP 36.3; O2SAT 95
[2024-12-12 22:00] VITALS: BP 112/63; PULSE 75; RESP 18; TEMP 36.3; O2SAT 97
[2024-12-13] MEDS: SODIUM CHLORIDE 0.9% IV 1,000 ML 125 ML IV CONT ×3 (05:05→23:23)
[2024-12-13 06:00] VITALS: BP 116/67; PULSE 82; RESP 18; TEMP 36.8; O2SAT 98
[2024-12-13 06:50] LABS: Basophils Percent Auto 0.7 % (0.2-1.2); Eosinophils Absolute Auto 0.3 K/mm3 (0-0.3); Eosinophils Percent Auto 6.7 % (0-4.4); Hematocrit 38.8 % (42.0-52.0); Hemoglobin 12.4 g/dL (14.0-18.0); Immature Granulocyte Absolute 0.01 K/mm3 (0.00-0.031); Immature Granulocyte Percent A 0.2 % (0-0.5); Lymphocytes Absolute Auto 1.98 K/mm3 (0.9-3.2); Lymphocytes Percent Auto 44.5 % (18.3-44.2); Mean Corpuscular Hemoglobin 29.7 pg (26-34); Mean Corpuscular Volume 92.8 fl (80-100); Mean Platelet Volume 9.7 fl (7.4-10.4); Monocytes Absolute Auto 0.4 K/mm3 (0.1-0.6); Neutrophils Absolute Auto 1.7 K/mm3 (1.3-6.7); Neutrophils Percent Auto 38.9 % (45.5-73.1); Platelet Count Result 222 k/mm3 (150-375); Red Blood Count 4.18 M/mm3 (4.6-6.20); Red Cell Distribution Width 13.7 % (11.5-14.5); White Blood Count 4.5 K/mm3 (4.5-10.0)
[2024-12-13 07:06] LABS: Alanine Aminotransferase 21 U/L (6-50); Albumin Level 3.3 g/dL (3.5-5.1); Alkaline Phosphatase 48 U/L (38-126); Anion Gap 7 mmol/L (4-12); Aspartate Amino Transferase 24 U/L (17-59); Bilirubin,Total 1.1 mg/dL (0.2-1.3); Blood Urea Nitrogen 11 mg/dL (9-20); Calcium 8.5 mg/dL (8.4-10.2); Carbon Dioxide 20 mmol/L (22-30); Chloride 112 mmol/L (98-107); Estimated CRCL calculation 118 ml/min; Estimated Glomerular Filt Rate > 60; Glucose 97 mg/dL (65-110); Magnesium 2.1 mg/dL (1.6-2.3); Potassium 3.8 mmol/L (3.4-5.0); Sodium 139 mmol/L (137-145); Total Protein 5.9 g/dL (6.3-8.2)
--- NOTE | 2024-12-13 11:16 | P.PNIM_ITS ---
Progress Note: A&P Assessment and Plan (1) Partial small bowel obstruction: Code(s): K56.600 - Partial intestinal obstruction, unspecified as to cause Status: Acute Assessment and Plan: * CT scan abdomen pelvis was done showing some dilated loops of small bowel in a possible transition point in the left lower quadrant of the abdomen. * Attempts to place a nasogastric tube overnight were unsuccessful. * A small bowel water-soluble series has been initiated 4hours the images show no took passage of contrast into the colon. However the patient recently had a large semi formed bowel movement upon returning to the room. * Small bowel series:FINDINGS: HEALTH SAFETY SPECIALIST FILM: Nonobstructive bowel gas pattern. No organomegaly. No pathologic calcifications. Residual contrast is seen in the urinary bladder. Grossly dilatation of the lower esophagus is noted. Postoperative changes with fundoplication is seen in the stomach. Contrast reached the colon and 7 hours. No dilatation of the small bowel is seen. No intrinsic or extrinsic mass effect, mucosal abnormality, stricture, or sign of obstruction. IMPRESSION: The contrast reached the colon after 7 hours. No dilatation of the bowel or masses seen. No evidence of obstruction is seen also fractured obstruction. Partial obstruction cannot be completely excluded although less likely. Clinical correlation and Follow-up advised. Grossly dilated esophagus with postoperative changes suggestive of fundoplication as mentioned in history. Clinical correlation advised. * Surgery following, appreciate recommendations. * Clear liquid diet. * Patient reports 4 bowel movements. * Patient has a dilated esophagus and distal esophageal stricture. GI consulted. Subjective Date/time seen: 12/13/24 11:16 Interval history: Patient sitting up on the side of the bed. Patient denies chest pain, abdominal pain, nausea, or vomiting. Patient reports having 4 bowel movements. Review of Systems Review of Systems: All systems reviewed & are unremarkable except as noted in HPI and below Exam Const: General: comfortable and no acute distress Resp: Effort & Inspection: normal respiratory effort Auscultation: clear to auscultation bilaterally Cardio: Rate: regular rate Rhythm: regular rhythm GI: GI Palp: Yes Soft to palpation Auscultation: normal bowel sounds Neuro: Speech: normal speech Extrem: General: no pedal edema Psych: Mental Status: mental status grossly normal Affect: normal affect Objective Data Vital Signs Vital Signs: Vital Signs - 24 hr 12/12/24 14:00 12/12/24 20:00 12/12/24 22:00 Temperature 97.4 F L 97.4 F L Pulse Rate 78 75 Respiratory Rate 16 18 Blood Pressure 112/68 112/63 Pulse Oximetry 95 97 Oxygen Delivery Room Air 12/13/24 06:00 12/13/24 08:00 Temperature 98.2 F Pulse Rate 82 Respiratory Rate 18 Blood Pressure 116/67 Pulse Oximetry 98 Oxygen Delivery Room Air Intake/Output Intake/Output: Intake & Output 12/10/24 12/11/24 12/12/24 12/13/24 23:59 23:59 23:59 23:59 Intake Total 1000 2495.4 1550 Balance 1000 2495.4 1550 Meds/Results Medications: Active Medications Generic Name Dose Route Start Last Admin Trade Name Freq PRN Reason Stop Dose Admin Sodium Chloride 1,000 mls @ 125 mls/hr 12/11/24 21:25 12/13/24 05:05 Normal Saline Iv IV CONT 125 mls/hr .Q8H WILLIAM Administration Ketorolac Tromethamine 30 mg 12/12/24 04:24 12/12/24 04:36 Ketorolac 30 Mg/Ml Vial (*Bkc) IV PUSH 30 mg Q6H PRN Administration Pain Rated 4-10 Morphine Sulfate 4 mg 12/11/24 21:25 12/11/24 23:54 Morphine Sulfate (*Crx) 4 Mg/Ml Inj IV PUSH 4 mg Q2H PRN Administration Pain Rated 7-10 Ondansetron HCl 4 mg 12/11/24 21:25 12/11/24 23:55 Ondansetron Inj 4 Mg/2 Ml Vial IV PUSH 4 mg Q4H PRN Administration Nausea Radiology Results: ITS Impressions Abdomen/Pelvis CT 12/11/24 19:24 IMPRESSION: Partial small bowel obstruction with the transition point in the left hemipelvis, as detailed above. Upper GI and Small Bowel X-Ray 12/12/24 16:09 IMPRESSION: The contrast reached the colon after 7 hours. No dilatation of the bowel or masses seen. No evidence of obstruction is seen also fractured obstruction. Partial obstruction cannot be completely excluded although less likely. Clinical correlation and Follow-up advised. Grossly dilated esophagus with postoperative changes suggestive of fundoplication as mentioned in history. Clinical correlation advised. Labs Labs: Laboratory Results - last 24 hr 12/13/24 06:37 WBC 4.5 RBC 4.18 L Hgb 12.4 L Hct 38.8 L MCV 92.8 MCH 29.7 MCHC 32.0 RDW 13.7 Plt Count 222 MPV 9.7 Immature Gran % (Auto) 0.2 Neut % (Auto) 38.9 L Lymph % (Auto) 44.5 H [place] % (Auto) 9.0 H Eos % (Auto) 6.7 H Baso % (Auto) 0.7 Lymph # (Auto) 1.98 [place] # (Auto) 0.4 Eos # (Auto) 0.3 Baso # (Auto) 0.0 Abs Immat Gran (auto) 0.01 Absolute Neuts (auto) 1.7 Absolute Nucleated RBC 0.000 Nucleated RBC % 0.0 Sodium 139 Potassium 3.8 Chloride 112 H Carbon Dioxide 20 L Anion Gap 7 BUN 11 D Creatinine 0.67 L Estim Creat Clear Calc 118 Estimated GFR > 60 Glucose 97 Calcium 8.5 Magnesium 2.1 Total Bilirubin 1.1 AST 24 ALT 21 Alkaline Phosphatase 48 Total Protein 5.9 L Albumin 3.3 L Quality VTE Prophylaxis VTE prophylaxis: mechanical ordered
--- NOTE | 2024-12-13 11:42 | P.PN_ITS ---
Progress Note: A&P Assessment and Plan (1) Dilatation of esophagus: Code(s): K22.89 - Other specified disease of esophagus Status: Acute Assessment and Plan: Patient has dilation of the esophagus on upper GI small bowel series. This could be due to achalasia or distal esophageal stricture from esophagitis. Could also be due to his Jim fundoplication which was done over 20 years ago but it would seem unlikely that he would have a fundoplication that is too tight for over 20 years. I have recommended he get an upper GI endoscopy performed and will need to get a GI consultation during this hospitalization. He does not have any evidence of a small-bowel obstruction will need surgical management. Will follow-up on results of upper GI endoscopy and GI consultation. (2) Esophageal abnormality: Code(s): K22.9 - Disease of esophagus, unspecified Status: Acute Assessment and Plan: As above. (3) Partial small bowel obstruction: Code(s): K56.600 - Partial intestinal obstruction, unspecified as to cause Status: Acute Assessment and Plan: Small-bowel series contrast reached the colon 7hours which is delay but no evidence of transition point or evidence of high-grade small-bowel obstruction. Continue on full liquids for today in anticipation of upper GI endoscopy after he has been seen by GI. Subjective Date/time seen: 12/13/24 11:42 Interval history: Patient is now having bowel movements. Had several after the small bowel series contrast reached his colon. The contrast reached the colon at 7hrs which is delayed but there is no obvious evidence of small-bowel surgical grade obstruction. What was seen on the small bowel upper GI series was dilation of esophagus. Patient has had a prior anti reflux procedure which may have been a laparoscopic Jim fundoplication in [place] 20 years ago. In speaking to his family today they do state that when he eats he does seem to have problems swallowing so he likely does have some symptoms of dysphagia. He has been tolerating clear liquids well. Exam GI: Other: Soft and nondistended. Well-healed laparoscopic scars in the upper abdomen. No ventral hernias. Exam is benign. Objective Data Vital Signs Vital Signs: Vital Signs - 24 hr 12/12/24 14:00 12/12/24 20:00 12/12/24 22:00 Temperature 36.3 C L 36.3 C L Pulse Rate 78 75 Respiratory Rate 16 18 Blood Pressure 112/68 112/63 Pulse Oximetry 95 97 Oxygen Delivery Room Air 12/13/24 06:00 12/13/24 08:00 Temperature 36.8 C Pulse Rate 82 Respiratory Rate 18 Blood Pressure 116/67 Pulse Oximetry 98 Oxygen Delivery Room Air Intake/Output Intake/Output: Intake & Output 12/10/24 12/11/24 12/12/24 12/13/24 23:59 23:59 23:59 23:59 Intake Total 1000 2495.4 1550 Balance 1000 2495.4 1550 Meds/Results Medications: Active Medications Generic Name Dose Route Start Last Admin Trade Name Freq PRN Reason Stop Dose Admin Sodium Chloride 1,000 mls @ 125 mls/hr 12/11/24 21:25 12/13/24 05:05 Normal Saline Iv IV CONT 125 mls/hr .Q8H WILLIAM Administration Ketorolac Tromethamine 30 mg 12/12/24 04:24 12/12/24 04:36 Ketorolac 30 Mg/Ml Vial (*Bkc) IV PUSH 30 mg Q6H PRN Administration Pain Rated 4-10 Morphine Sulfate 4 mg 12/11/24 21:25 12/11/24 23:54 Morphine Sulfate (*Crx) 4 Mg/Ml Inj IV PUSH 4 mg Q2H PRN Administration Pain Rated 7-10 Ondansetron HCl 4 mg 12/11/24 21:25 12/11/24 23:55 Ondansetron Inj 4 Mg/2 Ml Vial IV PUSH 4 mg Q4H PRN Administration Nausea Radiology Results: ITS Impressions Abdomen/Pelvis CT 12/11/24 19:24 IMPRESSION: Partial small bowel obstruction with the transition point in the left hemipelvis, as detailed above. Upper GI and Small Bowel X-Ray 12/12/24 16:09 IMPRESSION: The contrast reached the colon after 7 hours. No dilatation of the bowel or masses seen. No evidence of obstruction is seen also fractured obstruction. Partial obstruction cannot be completely excluded although less likely. Clinical correlation and Follow-up advised. Grossly dilated esophagus with postoperative changes suggestive of fundoplication as mentioned in history. Clinical correlation advised. Labs Labs: Laboratory Results - last 24 hr 12/13/24 06:37 WBC 4.5 RBC 4.18 L Hgb 12.4 L Hct 38.8 L MCV 92.8 MCH 29.7 MCHC 32.0 RDW 13.7 Plt Count 222 MPV 9.7 Immature Gran % (Auto) 0.2 Neut % (Auto) 38.9 L Lymph % (Auto) 44.5 H [place] % (Auto) 9.0 H Eos % (Auto) 6.7 H Baso % (Auto) 0.7 Lymph # (Auto) 1.98 [place] # (Auto) 0.4 Eos # (Auto) 0.3 Baso # (Auto) 0.0 Abs Immat Gran (auto) 0.01 Absolute Neuts (auto) 1.7 Absolute Nucleated RBC 0.000 Nucleated RBC % 0.0 Sodium 139 Potassium 3.8 Chloride 112 H Carbon Dioxide 20 L Anion Gap 7 BUN 11 D Creatinine 0.67 L Estim Creat Clear Calc 118 Estimated GFR > 60 Glucose 97 Calcium 8.5 Magnesium 2.1 Total Bilirubin 1.1 AST 24 ALT 21 Alkaline Phosphatase 48 Total Protein 5.9 L Albumin 3.3 L
[2024-12-13 14:00] VITALS: BP 118/71; PULSE 68; RESP 18; TEMP 36.8; O2SAT 97
[2024-12-13 22:00] VITALS: BP 136/62; PULSE 72; RESP 18; TEMP 36.6; O2SAT 100
[2024-12-14 06:00] VITALS: BP 129/84; PULSE 73; RESP 18; TEMP 36.8; O2SAT 100
[2024-12-14 06:25] LABS: Basophils Percent Auto 0.4 % (0.2-1.2); Eosinophils Absolute Auto 0.3 K/mm3 (0-0.3); Hematocrit 38.4 % (42.0-52.0); Hemoglobin 12.8 g/dL (14.0-18.0); Immature Granulocyte Absolute 0.02 K/mm3 (0.00-0.031); Immature Granulocyte Percent A 0.4 % (0-0.5); Lymphocytes Absolute Auto 1.89 K/mm3 (0.9-3.2); Lymphocytes Percent Auto 37.8 % (18.3-44.2); Mean Corpuscular HGB Conc 33.3 g/dl (32-36); Mean Corpuscular Volume 89.9 fl (80-100); Mean Platelet Volume 10.1 fl (7.4-10.4); Monocytes Absolute Auto 0.5 K/mm3 (0.1-0.6); Monocytes Percent Auto 10.4 % (2.6-8.5); Neutrophils Absolute Auto 2.3 K/mm3 (1.3-6.7); Platelet Count Result 243 k/mm3 (150-375); Red Blood Count 4.27 M/mm3 (4.6-6.20); Red Cell Distribution Width 13.2 % (11.5-14.5)
[2024-12-14 06:41] LABS: Alanine Aminotransferase 20 U/L (6-50); Albumin Level 3.4 g/dL (3.5-5.1); Alkaline Phosphatase 49 U/L (38-126); Anion Gap 6 mmol/L (4-12); Aspartate Amino Transferase 23 U/L (17-59); Bilirubin,Total 0.8 mg/dL (0.2-1.3); Blood Urea Nitrogen 6 mg/dL (9-20); Calcium 8.3 mg/dL (8.4-10.2); Carbon Dioxide 24 mmol/L (22-30); Chloride 111 mmol/L (98-107); Estimated CRCL calculation 113 ml/min; Estimated Glomerular Filt Rate > 60; Glucose 96 mg/dL (65-110); Potassium 3.6 mmol/L (3.4-5.0); Sodium 141 mmol/L (137-145); Total Protein 5.9 g/dL (6.3-8.2)
[2024-12-14] MEDS: SODIUM CHLORIDE 0.9% IV 1,000 ML 125 ML IV CONT (07:02)
--- NOTE | 2024-12-14 08:03 | P.CONGI_ITS ---
Assessment and Plan Assessment and plan (1) Epigastric abdominal pain: Code(s): R10.13 - Epigastric pain Status: Acute (2) RUQ pain: Code(s): R10.11 - Right upper quadrant pain Status: Acute (3) Dysphagia: Qualifiers: Dysphagia type: unspecified Qualified Code(s): R13.10 - Dysphagia, unspecified Code(s): R13.10 - Dysphagia, unspecified Status: Acute (4) Partial small bowel obstruction: Code(s): K56.600 - Partial intestinal obstruction, unspecified as to cause Status: Acute (5) Dilatation of esophagus: Code(s): K22.89 - Other specified disease of esophagus Status: Acute (6) History of esophageal stricture: Code(s): Z87.19 - Personal history of other diseases of the digestive system Status: Acute (7) Hiatal hernia: Code(s): K44.9 - Diaphragmatic hernia without obstruction or gangrene Status: Acute (8) Abnormal digestive system diagnostic imaging: Code(s): R93.3 - Abnormal findings on diagnostic imaging of other parts of digestive tract Status: Acute Plan 1. Epigastric pain/RUQ pain/ dysphagia/partial small bowel obstruction/abnormal imaging digestive-esophageal dilation/Hx of esophageal stricture/hiatal hernia: Patient presented to the ER 12/11/2024 with complaints of abdominal pain and was admitted for partial small bowel obstruction. Upper GI and small bowel x-ray showed no dilation of the bowel or masses seen. No evidence of obstruction is seen also fractured obstruction. Partial obstruction cannot be completely excluded and grossly dilated esophagus noted. NG tube placed and removed since admission. Patient with history of Jim fundoplication around 20 years ago. The patient admits to lifelong history of swallowing difficulty with solid foods but denies any difficulty swallowing liquids or pills. His dysphagia was occurring prior to his Jim fundoplication. He is on omeprazole 20 mg daily prior to admission and denies any reflux symptoms as long as he avoids known GERD triggering foods. Last EGD 07/15/2020 performed for similar findings of grossly dilated esophagus. EGD revealed diffusely dilated esophagus with retained liquid and debris, localized erosions in the distal esophagus. A TTS balloon dilation was performed using 15-18 mm an 18-20 mm balloons over 1 minute dilation time. Concerns following EGD was suspected underlying achalasia. Gallbladder in-situ. Following his EGD with dilation the patient states that his swallowing difficulty improved for a while. * surgery on case * EGD ordered * based on EGD findings, additional workup to exclude achalasia or motility disorder may be required * keep patient NPO * pantoprazole 40 mg daily * Further recommendations to follow endoscopy Thank you very much for allowing me to share in the care of this very nice patient. This report may have been done utilizing a voice recognition system. Attempts have been made to correct errors. However, there may be uncorrected grammatical, spelling, and recognition errors present. GI Consult Note Consult date/time: 12/14/24 08:03 Reason for consult: Dilated esophagus HPI: Sue Rayo is a 44 year old male with Hx of esophageal stricture and jim fundoplication. He presented to the ER 12/11/2024 with complaints of abdominal pain and was admitted for partial small bowel obstruction. GI has been consulted for dilated esophagus and Hx of esophageal stricture. 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 Prior to admission the patient was having right upper quadrant pain that he describes as a dull pain. He was also having nausea and vomiting prior to admission but this has resolved. He admits to a lifelong history of swallowing difficulty with solids but denies any difficulty swallowing liquids or pills. His dysphagia was occurring prior to his Jim fundoplication that was performed around 20 years ago. He is having 1-2 bowel movements daily that are formed and not urgent. He is on omeprazole 20 mg daily and denies any reflux symptoms as long as he avoids GERD triggering foods. He denies abdominal bloating, odynophagia, regurgitation, early satiety, unexplained weight loss, appetite loss, diarrhea, constipation, hematochezia, or melena. He is a nonsmoker nondrinker and denies marijuana use. Denies NSAID, aspirin, or anticoagulant use. Family history negative for CRC or IBD. ENDOSCOPY HISTORY: EGD: 07/15/[address] Gama for epigastric pain and abnormal CT Findings: There is evidence of prior anti-reflux surgery a gastric cardia Diffusely dilated esophagus with retained liquid and a broom A few localized erosions were evident in the distal esophagus that were not bleeding A TTS balloon dilation was performed using 15-18 mm and 18-20 mm balloons. The dilation time was 1 minutes COLONOSCOPY: Patient has never had a colonoscopy LABS AND STOOL STUDIES: Labs 12/14/2024: Sodium 141, potassium 3.6, BUN 6, creatinine 0.70, GFR >60, calcium 8.3 WBC 5, Hgb 13, Hct 38, MCV 90, platelets 243 Total bilirubin 0.8, AST 23, ALT 20, Alkaline Phos 49, albumin 3.4 Lactic acid 0.9, magnesium 2.0, lipase 45 IMAGING: Upper GI series small bowel X-Ray 12/12/2024: Nonobstructive bowel gas pattern. No organomegaly. No pathologic calcifications. Residual contrast is seen in the urinary bladder. Grossly dilatation of the lower esophagus is noted. Postoperative changes with fundoplication is seen in the stomach. Contrast reached the colon and 7 hours. No dilatation of the small bowel is seen. No intrinsic or extrinsic mass effect, mucosal abnormality, stricture, or sign of obstruction. IMPRESSION: The contrast reached the colon after 7 hours. No dilatation of the bowel or masses seen. No evidence of obstruction is seen also fractured obstruction. Partial obstruction cannot be completely excluded although less likely. Clinical correlation and Follow-up advised. Grossly dilated esophagus with postoperative changes suggestive of fundoplication as mentioned in history. Clinical correlation advised. Chest Xray 12/11/2024: IMPRESSION: NG tube coiled within patient's hiatal hernia. Withdrawal of approximately 8 to 10 cm is recommended prior to advancement of 10 to 15 cm, followed by repeat imaging. CT abd/pelvis w/contrast 12/11/2024: Visualized lower thorax: The bilateral lung bases are clear. The heart is of normal size, without pericardial effusion. Large hiatal hernia is present. Liver: The liver demonstrates homogeneous enhancement and is not enlarged. Gallbladder and biliary system: The gallbladder is distended, and otherwise unremarkable. Pancreas: The pancreas enhances homogeneously without ductal dilatation. Spleen: The spleen enhances homogeneously and is not enlarged. Kidneys: The bilateral kidneys enhance symmetrically without hydronephrosis or renal calculi. Adrenal glands: Unremarkable. Gastrointestinal tract: Multiple loops of dilated fluid-filled small bowel are identified, with fecalization consistent with small bowel obstruction. Transition point is identified within the left hemipelvis. Distal small bowel is decompressed. Air is identified within the colon Appendix: The air-filled appendix is of normal caliber (axial series, images 112 through 115) Vasculature: Unremarkable. Lymph nodes: No pathologically enlarged or morphologically suspicious lymph nodes within the retroperitoneum or at the root of the mesentery. Pelvic structures: The bladder is only minimally distended, and otherwise unremarkable. The prostate gland is not enlarged. Body wall and musculoskeletal: Fat-containing (and likely omental containing) left inguinal hernia extending into the left scrotum. No significant degenerative disease within the lower thoracic or lumbosacral spine. IMPRESSION: Partial small bowel obstruction with the transition point in the left hemipelvis, as detailed above. CT abd/pelvis w/contrast 07/15/2020: IMPRESSION: 1. Small bowel obstruction with transition in the right inguinal hernia. 2: Fluid-filled dilated distal esophagus with transition at the gastroesophageal junction, compatible with stricture. There are nearby surgical changes. Correlate with clinical history of surgery. Review of Systems 2 Constitutional: Constitutional: Reports as per HPI ENT: Reports as per HPI Cardiovascular: Cardiovascular: Reports as per HPI, Denies chest pain and Denies dyspnea Respiratory: Respiratory: Denies cough and Denies dyspnea Gastrointestinal: Gastrointestinal: Reports as per HPI Musculoskeletal: Musculoskeletal: Reports as per HPI Integumentary/Breasts: Skin/Breast: Reports as per HPI Psychiatric: Psychiatric: Reports as per HPI Endocrine: Endocrine: Reports no additional endocrine complaints Hematologic/Lymphatic: Hematologic/Lymphatic: Reports no additional hematologic/lymphatic complaints [facility] Past Medical History Medical History Erosive esophagitis Epigastric abdominal pain Family History Family History Father Diabetes mellitus Social History Social History Smoking status: Never smoker Second hand tobacco smoke exposure: Yes (mother) Alcohol intake: current Substance use: never Substance use type: does not use Do You Feel Safe in your Home?: Yes Lack of Transportation: No Lack of Food: Never True Current Housing: I Have Housing Concerned About Future Housing: No Difficulty Paying Gas/Electric Bills: No Difficulty Paying for Meds: No Currently Unemployed: Decline to Answer Education: Decline to Answer Difficulty w/ Childcare or Family Care: No Gender identity (if verbalized by the patient): Male Sexual Orientation (if Verbalized by the Patient): Straight or Heterosexual Spiritual care concerns: No Meds Home Medications and Allergies Home Medications ?Medication ?Instructions ?Recorded ?Confirmed ?Type No Home Medications 12/30/20 12/12/24 History Allergies Allergy/AdvReac Type Severity Reaction Status Date / Time No Known Allergies Allergy Verified 12/30/20 04:01 Vital Signs Vital Signs - 24 hr 12/13/24 14:00 12/13/24 20:00 12/13/24 22:00 Temperature 98.2 F 98 F Pulse Rate 68 72 Respiratory Rate 18 18 Blood Pressure 118/71 136/62 Pulse Oximetry 97 100 Oxygen Delivery Room Air 12/14/24 06:00 Temperature 98.2 F Pulse Rate 73 Respiratory Rate 18 Blood Pressure 129/84 Pulse Oximetry 100 Oxygen Delivery Exam 2 Const: General: cooperative, healthy appearing, comfortable, no acute distress and well developed Orientation/consciousness: oriented to person, oriented to place, oriented to time and patient oriented x3 HENMT: Head: normal to inspection, normocephalic and atraumatic Mouth: Yes Normal oral and palatal mucosa present and Yes moist mucous membranes Eyes: General: appearance normal, both eyes and all related structures C onjunctivae: conjunctivae normal Sclera: sclerae normal Pupils: Equal, round and reactive pupils present Neck: Neck: normal visual inspection Chest: Chest palpation & inspection: normal inspection of the chest Resp: Effort & Inspection: normal respiratory effort and able to speak in complete sentences Auscultation: clear to auscultation bilaterally Cardio: Jugular venous distension: no JVD Rate: regular rate Rhythm: r egular rhythm Heart sounds: S1 normal heart sound present and S2 normal heart sound present GI: Inspection: normal to inspection GI Palp: Yes Soft to palpation and Yes No hepatosplenomegaly present Auscultation: normal bowel sounds Rectal Exam: deferred Skin: General skin exam: normal color and no rashes or lesions noted Neuro: General: oriented to person, oriented to place, oriented to time and patient oriented x3 Cranial nerves: Yes Equal, round and reactive pupils present Speech: normal speech Extrem: General: normal to inspection and no clubbing, cyanosis or edema Psych: Appearance: grossly normal and well kempt Affect: normal affect Results Labs 12/14/24 05:46 12/14/24 05:46 Labs: Short CBC 12/14/24 Range/Units 05:46 WBC 5.0 (4.5-10.0) K/mm3 Hgb 12.8 L (14.0-18.0) g/dL Hct 38.4 L (42.0-52.0) % Plt Count 243 (150-375) k/mm3 BMP 12/14/24 05:46 Sodium 141 Potassium 3.6 Chloride 111 H Carbon Dioxide 24 BUN 6 L D Creatinine 0.70 Glucose 96 Calcium 8.3 L Liver Function 12/14/24 Range/Units 05:46 Total Bilirubin 0.8 (0.2-1.3) mg/dL AST 23 (17-59) U/L ALT 20 (6-50) U/L Alkaline Phosphatase 49 (38-126) U/L Albumin 3.4 L (3.5-5.1) g/dL
[2024-12-14 11:00] VITALS: BP 117/73; PULSE 66; RESP 16; TEMP 36.6; O2SAT 100
[2024-12-14] MEDS: LACTATED RINGERS 1,000 ML 150 ML IV CONT (11:11)
--- NOTE | 2024-12-14 11:23 | WPDANESEPPF ---
Anes - Initial Pre Proc Eval Procedure: Operation Date: 12/14/24 15:45 Proposed Procedures p Esophagogastroduodenoscopy - Ang Miller MD Date/Time: 12/14/24 11:23 Surgeon: Radha Negrete DO Pre Op Diagnosis: Partial small-bowel obstruction Patient Data Age: 44 Gender: M Height: 1.78 m Weight: 69 kg Last Vital Signs Temp 36.6 C 12/14/24 11:00 Pulse 66 12/14/24 11:00 Resp 16 12/14/24 11:00 BP 117/73 12/14/24 11:00 Pulse Ox 100 12/14/24 11:00 O2 Del Method Room Air 12/14/24 11:00 Allergies Allergy/AdvReac Type Severity Reaction Status Date / Time No Known Allergies Allergy Verified 12/14/24 11:05 Home Medications ?Medication ?Instructions ?Recorded ?Confirmed ?Type No Home Medications 12/30/20 12/12/24 History Laboratory Tests 12/14/24 05:46 WBC 5.0 K/mm3 (4.5-10.0) RBC 4.27 L M/mm3 (4.6-6.20) Hgb 12.8 L g/dL (14.0-18.0) Hct 38.4 L % (42.0-52.0) MCV 89.9 fl (80-100) MCH 30.0 pg (26-34) MCHC 33.3 g/dl (32-36) RDW 13.2 % (11.5-14.5) Plt Count 243 k/mm3 (150-375) MPV 10.1 fl (7.4-10.4) Immature Gran % (Auto) 0.4 % (0-0.5) Neut % (Auto) 46.0 % (45.5-73.1) Lymph % (Auto) 37.8 % (18.3-44.2) Bonner % (Auto) 10.4 H % (2.6-8.5) Eos % (Auto) 5.0 H % (0-4.4) Baso % (Auto) 0.4 % (0.2-1.2) Lymph # (Auto) 1.89 K/mm3 (0.9-3.2) Bonner # (Auto) 0.5 K/mm3 (0.1-0.6) Eos # (Auto) 0.3 K/mm3 (0-0.3) Baso # (Auto) 0.0 K/mm3 (0.0-0.1) Abs Immat Gran (auto) 0.02 K/mm3 (0.00-0.031) Absolute Neuts (auto) 2.3 K/mm3 (1.3-6.7) Absolute Nucleated RBC 0.000 K/mm3 (0.0-0.012) Nucleated RBC % 0.0 % (0.0-0.2) Sodium 141 mmol/L (137-145) Potassium 3.6 mmol/L (3.4-5.0) Chloride 111 H mmol/L (98-107) Carbon Dioxide 24 mmol/L (22-30) Anion Gap 6 mmol/L (4-12) BUN 6 L D mg/dL (9-20) Creatinine 0.70 mg/dL (0.7-1.3) Estim Creat Clear Calc 113 ml/min Estimated GFR > 60 (59 - ) Glucose 96 mg/dL (65-110) Calcium 8.3 L mg/dL (8.4-10.2) Magnesium 2.0 mg/dL (1.6-2.3) Total Bilirubin 0.8 mg/dL (0.2-1.3) AST 23 U/L (17-59) ALT 20 U/L (6-50) Alkaline Phosphatase 49 U/L (38-126) Total Protein 5.9 L g/dL (6.3-8.2) Albumin 3.4 L g/dL (3.5-5.1) Patient hx anesthesia problems: none Family hx anesthesia problems: none Results Review: All pre-operative results and documents have been reviewed as part of the pre-operative evaluation. [facility] Past Medical History Medical History Erosive esophagitis Epigastric abdominal pain Family History Family History Father Diabetes mellitus Social History Social History Smoking status: Never smoker Second hand tobacco smoke exposure: Yes (mother) Alcohol intake: current Substance use: never Substance use type: does not use Do You Feel Safe in your Home?: Yes Lack of Transportation: No Lack of Food: Never True Current Housing: I Have Housing Concerned About Future Housing: No Difficulty Paying Gas/Electric Bills: No Difficulty Paying for Meds: No Currently Unemployed: Decline to Answer Education: Decline to Answer Difficulty w/ Childcare or Family Care: No Gender identity (if verbalized by the patient): Male Sexual Orientation (if Verbalized by the Patient): Straight or Heterosexual Spiritual care concerns: No Anes - Eval Final PreProcedure Day of Procedure 12/14/24 11:23 Patient weight: normal Heart: regular rate and rhythm Lungs: clear to auscultation and normal air movement Airway: Mallampati scale class II Neurological: alert and oriented Last oral intake: >/= 8 hours ASA classification: II Emergent: no Anesthetic plan: proceed Anesthesia type and monitoring: general GIVS and standard monitoring Results Review: All pre-operative results and documents have been reviewed as part of the pre-operative evaluation. Informed Consent: The patient's anesthetic plan and its attendant risks and benefits were discussed with the patient/family/POA. Questions were solicited and answers provided to the satisfaction of the patient/family/POA.
[2024-12-14 12:02] VITALS: BP 92/52; PULSE 64; RESP 12; O2SAT 97
[2024-12-14 12:12] VITALS: BP 95/58; PULSE 61; RESP 13; O2SAT 98
[2024-12-14 12:22] VITALS: BP 108/72; PULSE 56; RESP 12; O2SAT 100
--- NOTE | 2024-12-14 13:44 | P.PNIM_ITS ---
Progress Note: A&P Assessment and Plan (1) Partial small bowel obstruction: Code(s): K56.600 - Partial intestinal obstruction, unspecified as to cause Status: Acute Assessment and Plan: * CT scan abdomen pelvis was done showing some dilated loops of small bowel in a possible transition point in the left lower quadrant of the abdomen. * Attempts to place a nasogastric tube overnight were unsuccessful. * A small bowel water-soluble series has been initiated 4hours the images show no took passage of contrast into the colon. However the patient recently had a large semi formed bowel movement upon returning to the room. 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 No organomegaly. No pathologic calcifications. Residual contrast is seen in the urinary bladder. Grossly dilatation of the lower esophagus is noted. Postoperative changes with fundoplication is seen in the stomach. Contrast reached the colon and 7 hours. No dilatation of the small bowel is seen. No intrinsic or extrinsic mass effect, mucosal abnormality, stricture, or sign of obstruction. IMPRESSION: The contrast reached the colon after 7 hours. No dilatation of the bowel or masses seen. No evidence of obstruction is seen also fractured obstruction. Partial obstruction cannot be completely excluded although less likely. Clinical correlation and Follow-up advised. Grossly dilated esophagus with postoperative changes suggestive of fundoplication as mentioned in history. Clinical correlation advised. * Surgery following, appreciate recommendations. * Patient reports 4 bowel movements. * Patient has a dilated esophagus and distal esophageal stricture. GI consulted. * EGD today showed: a large amount of retained food an secretions was seen in the mid esophagus and in the distal esophagus. Severe diffuse chronic erosive gastritis was seen in the fundus, in the body of the stomach, and in the antrum. The gastritis had severe erythematous and friable changes. No biopsies were taken due to risk of aspiration from large amounts of food in the esophagus (shorter procedure time). The bulb and the second portion of the duodenum was normal with no ulcers or masses. * Esophageal Manometry to be scheduled. * Soft diet. * Follow up appointment in the GI clinic. Subjective Date/time seen: 12/14/24 13:44 Interval history: Patient sitting up on the side of the bed. Patient had just eaten and reported tolerating food well. Patient denies chest pain, palpitations, headache, dizziness, nausea, or vomiting. Review of Systems Review of Systems: All systems reviewed & are unremarkable except as noted in HPI and below Exam Const: General: comfortable and no acute distress Resp: Effort & Inspection: normal respiratory effort Auscultation: clear to auscultation bilaterally Cardio: Rate: regular rate Rhythm: regular rhythm GI: GI Palp: Yes Soft to palpation Auscultation: normal bowel sounds Neuro: Speech: normal speech Psych: Mental Status: mental status grossly normal Affect: normal affect Objective Data Vital Signs Vital Signs: Vital Signs - 24 hr 12/13/24 14:00 12/13/24 20:00 12/13/24 22:00 Temperature 98.2 F 98 F Pulse Rate 68 72 Respiratory Rate 18 18 Blood Pressure 118/71 136/62 Pulse Oximetry 97 100 Oxygen Delivery Room Air 12/14/24 06:00 12/14/24 08:00 12/14/24 11:00 Temperature 98.2 F 97.8 F Pulse Rate 73 66 Respiratory Rate 18 16 Blood Pressure 129/84 117/73 Pulse Oximetry 100 100 Oxygen Delivery Room Air Room Air 12/14/24 12:02 12/14/24 12:12 12/14/24 12:22 Temperature Pulse Rate 64 61 56 L Respiratory Rate 12 13 12 Blood Pressure 92/52 L 95/58 L 108/72 Pulse Oximetry 97 98 100 Oxygen Delivery Room Air Room Air Room Air Intake/Output Intake/Output: Intake & Output 12/11/24 12/12/24 12/13/24 12/14/24 23:59 23:59 23:59 23:59 Intake Total 1000 2495.4 4656.7 1506.3 Balance 1000 2495.4 4656.7 1506.3 Meds/Results Medications: Active Medications Generic Name Dose Route Start Last Admin Trade Name Freq PRN Reason Stop Dose Admin Sodium Chloride 1,000 mls @ 125 mls/hr 12/11/24 21:25 12/14/24 07:02 Normal Saline Iv IV CONT 125 mls/hr .Q8H WILLIAM Administration Ketorolac Tromethamine 30 mg 12/12/24 04:24 12/12/24 04:36 Ketorolac 30 Mg/Ml Vial (*Bkc) IV PUSH 30 mg Q6H PRN Administration Pain Rated 4-10 Morphine Sulfate 4 mg 12/11/24 21:25 12/11/24 23:54 Morphine Sulfate (*Crx) 4 Mg/Ml Inj IV PUSH 4 mg Q2H PRN Administration Pain Rated 7-10 Ondansetron HCl 4 mg 12/11/24 21:25 12/11/24 23:55 Ondansetron Inj 4 Mg/2 Ml Vial IV PUSH 4 mg Q4H PRN Administration Nausea Radiology Results: ITS Impressions Abdomen/Pelvis CT 12/11/24 19:24 IMPRESSION: Partial small bowel obstruction with the transition point in the left hemipelvis, as detailed above. Upper GI and Small Bowel X-Ray 12/12/24 16:09 IMPRESSION: The contrast reached the colon after 7 hours. No dilatation of the bowel or masses seen. No evidence of obstruction is seen also fractured obstruction. Partial obstruction cannot be completely excluded although less likely. Clinical correlation and Follow-up advised. Grossly dilated esophagus with postoperative changes suggestive of fundoplication as mentioned in history. Clinical correlation advised. Labs Labs: Laboratory Results - last 24 hr 12/14/24 05:46 WBC 5.0 RBC 4.27 L Hgb 12.8 L Hct 38.4 L MCV 89.9 MCH 30.0 MCHC 33.3 RDW 13.2 Plt Count 243 MPV 10.1 Immature Gran % (Auto) 0.4 Neut % (Auto) 46.0 Lymph % (Auto) 37.8 Callahan % (Auto) 10.4 H Eos % (Auto) 5.0 H Baso % (Auto) 0.4 Lymph # (Auto) 1.89 Callahan # (Auto) 0.5 Eos # (Auto) 0.3 Baso # (Auto) 0.0 Abs Immat Gran (auto) 0.02 Absolute Neuts (auto) 2.3 Absolute Nucleated RBC 0.000 Nucleated RBC % 0.0 Sodium 141 Potassium 3.6 Chloride 111 H Carbon Dioxide 24 Anion Gap 6 BUN 6 L D Creatinine 0.70 Estim Creat Clear Calc 113 Estimated GFR > 60 Glucose 96 Calcium 8.3 L Magnesium 2.0 Total Bilirubin 0.8 AST 23 ALT 20 Alkaline Phosphatase 49 Total Protein 5.9 L Albumin 3.4 L Quality VTE Prophylaxis VTE prophylaxis: mechanical ordered
[2024-12-14 13:58] VITALS: BP 121/81; PULSE 63; RESP 18; TEMP 36.6; O2SAT 100
--- NOTE | 2024-12-14 14:44 | P.PNGS_ITS ---
Progress Note: A&P Assessment and Plan (1) Dilatation of esophagus: Code(s): K22.89 - Other specified disease of esophagus Status: Acute Assessment and Plan: EGD today demonstrated a large amount of retained food secretions in the mid and distal esophagus with severe diffuse chronic erosive gastritis in the fundus, body, and antrum of the stomach. Gastritis had severe erythematous and friable changes. No biopsies were obtained due to risk of aspiration from the large volume of food in the esophagus. GI recommended follow-up appointment in their clinic. Esophageal manometry to be scheduled. Continue soft diet and present medications. (2) Esophageal abnormality: Code(s): K22.9 - Disease of esophagus, unspecified Status: Acute Assessment and Plan: As above. (3) Partial small bowel obstruction: Code(s): K56.600 - Partial intestinal obstruction, unspecified as to cause Status: Acute Assessment and Plan: Small-bowel series contrast reached the colon 7 hours which is delay but no evidence of transition point or evidence of high-grade small-bowel obstruction. Patient is tolerating soft diet without regurgitation, nausea, or vomiting. Having regular bowel movements. Continue soft diet. No immediate surgical intervention necessary at this time. Subjective Subjective Date/Time Seen: 12/14/24 14:44 Patient reports: no new complaints and pain is less Interval history: Patient is doing well today. He is tolerating a soft diet without nausea, vomiting, regurgitation. Last BM this morning. No complaints of abdominal pain. EGD this morning demonstrated a large amount of retained food and secretions in the mid and distal esophagus. Severe diffuse chronic erosive gastritis in the fundus, body, and antrum of the stomach. Exam GI: Other: Soft and nondistended. Well-healed laparoscopic scars in the upper abdomen. No ventral hernias. Exam is benign. Objective Data Vital Signs Vital Signs: Vital Signs - 24 hr 12/13/24 20:00 12/13/24 22:00 12/14/24 06:00 Temperature 98 F 98.2 F Pulse Rate 72 73 Respiratory Rate 18 18 Blood Pressure 136/62 129/84 Pulse Oximetry 100 100 Oxygen Delivery Room Air 12/14/24 08:00 12/14/24 11:00 12/14/24 12:02 Temperature 97.8 F Pulse Rate 66 64 Respiratory Rate 16 12 Blood Pressure 117/73 92/52 L Pulse Oximetry 100 97 Oxygen Delivery Room Air Room Air Room Air 12/14/24 12:12 12/14/24 12:22 12/14/24 13:58 Temperature 97.8 F Pulse Rate 61 56 L 63 Respiratory Rate 13 12 18 Blood Pressure 95/58 L 108/72 121/81 Pulse Oximetry 98 100 100 Oxygen Delivery Room Air Room Air Intake/Output Intake/Output: Intake & Output 12/11/24 12/12/24 12/13/24 12/14/24 23:59 23:59 23:59 23:59 Intake Total 1000 2495.4 4656.7 1506.3 Balance 1000 2495.4 4656.7 1506.3 Meds/Results Medications: Active Medications Generic Name Dose Route Start Last Admin Trade Name Freq PRN Reason Stop Dose Admin Sodium Chloride 1,000 mls @ 125 mls/hr 12/11/24 21:25 12/14/24 07:02 Normal Saline Iv IV CONT 125 mls/hr .Q8H WILLIAM Administration Ketorolac Tromethamine 30 mg 12/12/24 04:24 12/12/24 04:36 Ketorolac 30 Mg/Ml Vial (*Bkc) IV PUSH 30 mg Q6H PRN Administration Pain Rated 4-10 Morphine Sulfate 4 mg 12/11/24 21:25 12/11/24 23:54 Morphine Sulfate (*Crx) 4 Mg/Ml Inj IV PUSH 4 mg Q2H PRN Administration Pain Rated 7-10 Ondansetron HCl 4 mg 12/11/24 21:25 12/11/24 23:55 Ondansetron Inj 4 Mg/2 Ml Vial IV PUSH 4 mg Q4H PRN Administration Nausea Radiology Results: ITS Impressions Abdomen/Pelvis CT 12/11/24 19:24 IMPRESSION: Partial small bowel obstruction with the transition point in the left hemipelvis, as detailed above. Upper GI and Small Bowel X-Ray 12/12/24 16:09 IMPRESSION: The contrast reached the colon after 7 hours. No dilatation of the bowel or masses seen. No evidence of obstruction is seen also fractured obstruction. Partial obstruction cannot be completely excluded although less likely. Clinical correlation and Follow-up advised. Grossly dilated esophagus with postoperative changes suggestive of fundoplication as mentioned in history. Clinical correlation advised. Labs Labs: Laboratory Results - last 24 hr 12/14/24 05:46 WBC 5.0 RBC 4.27 L Hgb 12.8 L Hct 38.4 L MCV 89.9 MCH 30.0 MCHC 33.3 RDW 13.2 Plt Count 243 MPV 10.1 Immature Gran % (Auto) 0.4 Neut % (Auto) 46.0 Lymph % (Auto) 37.8 [place] % (Auto) 10.4 H Eos % (Auto) 5.0 H Baso % (Auto) 0.4 Lymph # (Auto) 1.89 [place] # (Auto) 0.5 Eos # (Auto) 0.3 Baso # (Auto) 0.0 Abs Immat Gran (auto) 0.02 Absolute Neuts (auto) 2.3 Absolute Nucleated RBC 0.000 Nucleated RBC % 0.0 Sodium 141 Potassium 3.6 Chloride 111 H Carbon Dioxide 24 Anion Gap 6 BUN 6 L D Creatinine 0.70 Estim Creat Clear Calc 113 Estimated GFR > 60 Glucose 96 Calcium 8.3 L Magnesium 2.0 Total Bilirubin 0.8 AST 23 ALT 20 Alkaline Phosphatase 49 Total Protein 5.9 L Albumin 3.4 L
--- NOTE | 2024-12-14 16:59 | P.PNGI_ITS ---
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 The only solution for this patient is a formal diagnosis to confirm if this is achalasia, and surgical treatment might be indicated. Will put a referral for [facility] motility studies. The patient is uninsured so this might be a problem. From a medical standpoint there is no pharmacological options that we can offer for this patient. Subjective Date/time seen: 12/14/24 16:59 Objective Data Vital Signs Vital Signs: Vital Signs - 24 hr 12/13/24 20:00 12/13/24 22:00 12/14/24 06:00 Temperature 98 F 98.2 F Pulse Rate 72 73 Respiratory Rate 18 18 Blood Pressure 136/62 129/84 Pulse Oximetry 100 100 Oxygen Delivery Room Air 12/14/24 08:00 12/14/24 11:00 12/14/24 12:02 Temperature 97.8 F Pulse Rate 66 64 Respiratory Rate 16 12 Blood Pressure 117/73 92/52 L Pulse Oximetry 100 97 Oxygen Delivery Room Air Room Air Room Air 12/14/24 12:12 12/14/24 12:22 12/14/24 13:58 Temperature 97.8 F Pulse Rate 61 56 L 63 Respiratory Rate 13 12 18 Blood Pressure 95/58 L 108/72 121/81 Pulse Oximetry 98 100 100 Oxygen Delivery Room Air Room Air Intake/Output Intake/Output: Intake & Output 12/11/24 12/12/24 12/13/24 12/14/24 23:59 23:59 23:59 23:59 Intake Total 1000 2495.4 4656.7 1506.3 Balance 1000 2495.4 4656.7 1506.3 Meds/Results Medications: Active Medications Generic Name Dose Route Start Last Admin Trade Name Freq PRN Reason Stop Dose Admin Sodium Chloride 1,000 mls @ 125 mls/hr 12/11/24 21:25 12/14/24 07:02 Normal Saline Iv IV CONT 125 mls/hr .Q8H WILLIAM Administration Ketorolac Tromethamine 30 mg 12/12/24 04:24 12/12/24 04:36 Ketorolac 30 Mg/Ml Vial (*Bkc) IV PUSH 30 mg Q6H PRN Administration Pain Rated 4-10 Morphine Sulfate 4 mg 12/11/24 21:25 12/11/24 23:54 Morphine Sulfate (*Crx) 4 Mg/Ml Inj IV PUSH 4 mg Q2H PRN Administration Pain Rated 7-10 Ondansetron HCl 4 mg 12/11/24 21:25 12/11/24 23:55 Ondansetron Inj 4 Mg/2 Ml Vial IV PUSH 4 mg Q4H PRN Administration Nausea Radiology Results: ITS Impressions Abdomen/Pelvis CT 12/11/24 19:24 IMPRESSION: Partial small bowel obstruction with the transition point in the left hemipelvis, as detailed above. Upper GI and Small Bowel X-Ray 12/12/24 16:09 IMPRESSION: The contrast reached the colon after 7 hours. No dilatation of the bowel or masses seen. No evidence of obstruction is seen also fractured obstruction. Partial obstruction cannot be completely excluded although less likely. Clinical correlation and Follow-up advised. Grossly dilated esophagus with postoperative changes suggestive of fundoplication as mentioned in history. Clinical correlation advised. Labs Labs: Laboratory Results - last 24 hr 12/14/24 05:46 WBC 5.0 RBC 4.27 L Hgb 12.8 L Hct 38.4 L MCV 89.9 MCH 30.0 MCHC 33.3 RDW 13.2 Plt Count 243 MPV 10.1 Immature Gran % (Auto) 0.4 Neut % (Auto) 46.0 Lymph % (Auto) 37.8 [place] % (Auto) 10.4 H Eos % (Auto) 5.0 H Baso % (Auto) 0.4 Lymph # (Auto) 1.89 [place] # (Auto) 0.5 Eos # (Auto) 0.3 Baso # (Auto) 0.0 Abs Immat Gran (auto) 0.02 Absolute Neuts (auto) 2.3 Absolute Nucleated RBC 0.000 Nucleated RBC % 0.0 Sodium 141 Potassium 3.6 Chloride 111 H Carbon Dioxide 24 Anion Gap 6 BUN 6 L D Creatinine 0.70 Estim Creat Clear Calc 113 Estimated GFR > 60 Glucose 96 Calcium 8.3 L Magnesium 2.0 Total Bilirubin 0.8 AST 23 ALT 20 Alkaline Phosphatase 49 Total Protein 5.9 L Albumin 3.4 L
--- NOTE | 2024-12-15 07:01 | PM.DS ---
DS: Admitting Diagnosis Discharge Date 12/14/24 Admitting Diagnosis Abdominal pain. DS: Discharge Diagnosis Discharge Diagnosis Plan Abdominal pain. DS: Summary Hospital Course Hospital Course: ER work up: WBC 9.6, BUN 21, anion gap 16, CO2 17. Urine pH 1.041, 1+ protein, 3+ ketones, 1+ bilirubin, 2 urobilinogen, trace leukocytes. CT scan abdomen pelvis was done showing some dilated loops of small bowel in a possible transition point in the left lower quadrant of the abdomen. Attempts to place a nasogastric tube overnight were unsuccessful. A small bowel water-soluble series has been initiated 4hours the images show no took passage of contrast into the colon. However the patient recently had a large semi formed bowel movement upon returning to the room. 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 No organomegaly. No pathologic calcifications. Residual contrast is seen in the urinary bladder. Grossly dilatation of the lower esophagus is noted. Postoperative changes with fundoplication is seen in the stomach. Contrast reached the colon and 7 hours. No dilatation of the small bowel is seen. No intrinsic or extrinsic mass effect, mucosal abnormality, stricture, or sign of obstruction. IMPRESSION: The contrast reached the colon after 7 hours. No dilatation of the bowel or masses seen. No evidence of obstruction is seen also fractured obstruction. Partial obstruction cannot be completely excluded although less likely. Clinical correlation and Follow-up advised. Grossly dilated esophagus with postoperative changes suggestive of fundoplication as mentioned in history. Clinical correlation advised. Surgery following, appreciate recommendations. Patient reports 4 bowel movements. Patient has a dilated esophagus and distal esophageal stricture. GI consulted. EGD today showed: a large amount of retained food an secretions was seen in the mid esophagus and in the distal esophagus. Severe diffuse chronic erosive gastritis was seen in the fundus, in the body of the stomach, and in the antrum. The gastritis had severe erythematous and friable changes. No biopsies were taken due to risk of aspiration from large amounts of food in the esophagus (shorter procedure time). The bulb and the second portion of the duodenum was normal with no ulcers or masses. Esophageal Manometry to be scheduled. Soft diet. Follow up appointment in the GI clinic. Status at Discharge Functional status at discharge: independent ambulation Overall status at discharge: patient is progressing back to baseline Time Spent with Patient Time attestation: Total time spent providing and/or coordinating discharge services: Time spent: Less than 30 minutes Exam Const: General: comfortable and no acute distress Resp: Effort & Inspection: normal respiratory effort Auscultation: clear to auscultation bilaterally Cardio: Rate: regular rate Rhythm: regular rhythm GI: GI Palp: Yes Soft to palpation Auscultation: normal bowel sounds Extrem: General: no pedal edema Psych: Mental Status: mental status grossly normal Affect: normal affect Discharge Plan Discharge Attending physician on discharge: Yoel Isabel Consulting providers: Rebecca Biggs; Mitchell Bennett Discharging Clinician: Yoel Isabel Anticipated Discharge Date/Time: 12/14/24 17:49 Patient Disposition: Home Activity: as tolerated Diet: as tolerated Discharge Instructions: Patient may be discharged from a general surgery standpoint. He does not need general surgery follow-up here at [facility]. I understand that Dr. Miller would like the patient referred to [facility] for esophageal motility studies. I will defer that to him. No special orders for a general surgery standpoint. follow with [facility] Dr Melgar Patient Instructions: Antibiotic Form Patient Language: Yakut Stand Alone Forms: General Discharge Information Follow-up/Referrals: PHYSICIAN,SENIOR ACCOUNT REPRESENTATIVE [Primary Care Provider] - 1 Week Discharge Medications: No Action No Home Medications Date of admission: 12/13/24 13:16 Primary Care Provider: PHYSICIAN,SENIOR ACCOUNT REPRESENTATIVE Admitting Provider: Radha Negrete Attending physician on admission: Radha Negrete Condition: Stable Hospitalist MIPS Heart Failure (Exclusion) Patient has history of Heart Transplant or Left Ventricular Assistive Device?: No IF YES, STOP HERE Heart Failure (Qualifier) Patient has current or prior documentation of LVEF less than or equal to 40%, or mod/servere depressed LVSF?: No IF NO, STOP HERE
--- NOTE | 2024-12-15 14:12 | WPDANESPN ---
Anes - Prog Note Post-Op Date/Time: 12/15/24 14:12 Cardiovascular status: normal Respiratory status: normal Airway patency: baseline Mental status: baseline Post-Op hydration status: normal Vital Signs: Last Vital Signs Temp 97.8 F 12/14/24 13:58 Pulse 63 12/14/24 13:58 Resp 18 12/14/24 13:58 BP 121/81 12/14/24 13:58 Pulse Ox 100 12/14/24 13:58 O2 Del Method Room Air 12/14/24 12:22 Pain Score (VAS): 0/10 I/O: Intake & Output 12/14/24 12/15/24 12/15/24 23:59 07:59 15:59 Intake Total 120 Balance 120 Laboratory Tests 12/14/24 05:46 12/14/24 05:46 Post-procedural complaints: none Patient Feedback: Patient satisfied with anesthetic care.
== END 2024-12-14 18:17 | disposition home or self-care (01) | DRG 243 ==
LOC: ANHED 21:04 → ANH3MEDSUR 22:21
PROVIDERS: Internal Medicine Gastroenterology; Physician Assistant; Admitting Provider Internal Medicine; Emergency Provider Emergency Medicine; Visit Provider Nurse Practitioner Family
PROC: 0DJ08ZZ Inspection of Upper Intestinal Tract, Via Natural or Artificial Opening Endoscopic (ICD-10-PCS; principal; 2024-12-14 15:45)
DX: K22.89 Other specified disease of esophagus (principal); K56.600 Partial intestinal obstruction, unspecified as to cause; K29.50 Unspecified chronic gastritis without bleeding; K44.9 Diaphragmatic hernia without obstruction or gangrene; R13.10 Dysphagia, unspecified
CPT/HCPCS: 36415; 74177; 74250; 80053; 81001; 83605; 83690; 83735; 85025; 96361; 96374; 96375; 96376; 99285; G0378; J1885; J2003; J2270; J2405; J2704; J7030; J7120; Q9967

== ENCOUNTER 2025-01-07 03:12 | Inpatient (IN) | payer SELFPAY ==
[2025-01-07] VITALS (21 sets, daily range): BP systolic 112–145; BP diastolic 66–97; PULSE 66–100; RESP 6–28; TEMP 36.1–37.2; O2SAT 95–100; BMI 27.3
--- NOTE | ~2025-01-07 | CT_ITS ---
CT of the Abdomen and Pelvis: Indication: Abdominal pain, dilated esophagus Technique: 2.5 mm axial scans were obtained through the abdomen and pelvis following intravenous adm inistration of 100 cc of Omnipaque 350. Dose reduction technique was used on this scan by utilizing a utomated exposure control and iterative reconstruction technique. The dose-length product (DLP) was 2 75.02 mGy-cm. COMPARISON: 12/11/2024 Findings: Scans through the lung bases are clear. Markedly dilated distal esophagus is stable from p rior exam with mild wall thickening.. The liver, spleen, pancreas, gallbladder, adrenals and kidneys are within normal limits. No evidence of aortic aneurysm. No lymphadenopathy. Multiple dilated small bowel loops are present with transition point in the left lower quadrant/left pelvis, with distal small bowel loops being decompressed. There is fecalization of bowel contents pro ximal to the transition point. Questionable mild wall thickening of the gastric antrum and proximal d uodenum. Images through the pelvis were performed. Urinary bladder unremarkable. No pelvic mass seen. No ascit es. Large fat-containing left inguinal hernia present, extending to the scrotum. Impression: Small bowel obstruction, transition point in the left pelvis. No obstructing mass evident. Possible wall thickening gastric antrum and proximal duodenum versus peristalsis. Correlate for gastr itis or peptic ulcer disease. Large fat-containing left inguinal hernia, as detailed above. Stable markedly dilated distal esophagus with mild wall thickening. Reviewed, dictated and finalized at [facility]. Impression: Small bowel obstruction, transition point in the left pelvis. No obstructing ma ss evident. Possible wall thickening gastric antrum and proximal duodenum versus peristalsi s. Correlate for gastritis or peptic ulcer disease. Large fat-containing left inguinal hernia, as detailed above. Stable markedly dilated distal esophagus with mild wall thickening.
--- NOTE | ~2025-01-07 | XR_ITS ---
EXAMINATION: XR abdomen obstructive series DATE: 01/08/2025 07:50 INDICATION: Small bowel obstruction TECHNIQUE: Supine and upright views of the abdomen. FINDINGS: Comparison to 12/12/2024 The visualized lung parenchyma is normal.. There is a nonobstructive bowel gas pattern. Gas and stool are seen throughout the colon to the level of the rectum. There is no free air. There is left basil ar atelectasis/scarring. IMPRESSION: 1. No acute abdominal abnormality. Reviewed, dictated and finalized at location B.
--- NOTE | ~2025-01-07 | XR_ITS ---
XR abdomen gastric tube insert INDICATION: Evaluate NG tube position. TECHNIQUE: Limited KUB perform for evaluating NG tube . COMPARISON: FINDINGS: NG tube coiled in the stomach above the diaphragm within a hiatal hernia. Visualized bowel gas pattern is unremarkable.There is residual contrast in nondilated renal collecting systems. IMPRESSION: 1: Large hiatal hernia with NG tube coiled in the stomach above the diaphragm. Reviewed, dictated and finalized at location B.
[2025-01-07 03:45] LABS: Hematocrit 45.4 % (42.0-52.0); Hemoglobin 15.5 g/dL (14.0-18.0); Immature Granulocyte Percent A 0.5 % (0-0.5); Lymphocytes Absolute Auto 1.69 K/mm3 (0.9-3.2); Mean Corpuscular HGB Conc 34.1 g/dl (32-36); Mean Corpuscular Hemoglobin 30.2 pg (26-34); Mean Corpuscular Volume 88.3 fl (80-100); Nucleated Red Blood Cells Absolute Auto 0.000 K/mm3 (0.0-0.012); Nucleated Red Blood Cells Perc 0.0 % (0.0-0.2); Platelet Count Result 309 k/mm3 (150-375); Red Blood Count 5.14 M/mm3 (4.6-6.20); White Blood Count 10.7 K/mm3 (4.5-10.0)
[2025-01-07 03:56] LABS: Alanine Aminotransferase 40 U/L (6-50); Albumin Level 5.0 g/dL (3.5-5.1); Alkaline Phosphatase 93 U/L (38-126); Anion Gap 17 mmol/L (4-12); Aspartate Amino Transferase 48 U/L (17-59); Bilirubin,Total 1.0 mg/dL (0.2-1.3); Blood Urea Nitrogen 15 mg/dL (9-20); Calcium 10.6 mg/dL (8.4-10.2); Carbon Dioxide 18 mmol/L (22-30); Chloride 106 mmol/L (98-107); Estimated CRCL calculation 84 ml/min; Estimated Glomerular Filt Rate > 60; Glucose 158 mg/dL (65-110); Lipase 61 U/L (23-300); Potassium 3.5 mmol/L (3.4-5.0); Sodium 141 mmol/L (137-145); Total Protein 8.8 g/dL (6.3-8.2)
--- NOTE | 2025-01-07 04:17 | PC.NURSE ---
Pt desaturates to 84% on RA when sleeping x2 times. Pt O2 sats rise to 98% when awoken. Pt placed on 2L NC for comfort at this time.
[2025-01-07] MEDS: ONDANSETRON INJ 4 MG/2 ML VIAL IV PUSH ×2 (05:36→11:53)
[2025-01-07] MEDS: HYDROmorphone HCL INJ (*CRX) 2 MG/ML VIAL 0.5 MG IV PUSH ×3 (05:36→11:53)
[2025-01-07] MEDS: LACTATED RINGERS 1,000 ML 999 ML IV CONT (05:37)
--- NOTE | 2025-01-07 06:33 | ED.ABDPAIN ---
HPI - Abdominal Pain General Chief Complaint: Abdominal Pain Stated Complaint: abdominal pain Time Seen by Provider: 01/07/25 04:51 History of Present Illness HPI narrative: 44-year-old male with a past medical history including gastritis, previous Jim fundoplication, previous partial small-bowel obstruction. Patient presents to the emergency department with complaints of right lower quadrant abdominal pain, nausea and vomiting. Last bowel movement was over a day ago and previous to this was normal. Was admitted to the hospital last month for a small-bowel obstruction that was partial in nature and did not require any surgical interventions, treated conservatively and resolved. Patient states his symptoms feel very similar to that time and he has not had any interval hospitalizations or surgical interventions. He did have an endoscopy during his previous hospitalization digits showed severe gastritis. Denies any fever, chills, back pain, chest pain, shortness of breath. Related Data Home Medications ?Medication ?Instructions ?Recorded ?Confirmed ?Last Taken ?Type No Home Medications 12/30/20 12/12/24 Unknown History Allergies Allergy/AdvReac Type Severity Reaction Status Date / Time morphine Allergy Unknown Rash Verified 01/07/25 03:20 Review of Systems Review of Systems: As reviewed [facility] Past Medical History Medical History Erosive esophagitis Epigastric abdominal pain Family History Family History Father Diabetes mellitus Social History Social History Smoking status: Never smoker Second hand tobacco smoke exposure: Yes (mother) Alcohol intake: current Substance use: never Substance use type: does not use Do You Feel Safe in your Home?: Yes Lack of Transportation: No Lack of Food: Never True Current Housing: I Have Housing Concerned About Future Housing: No Difficulty Paying Gas/Electric Bills: No Difficulty Paying for Meds: No Currently Unemployed: Decline to Answer Education: Decline to Answer Difficulty w/ Childcare or Family Care: No Gender identity (if verbalized by the patient): Male Sexual Orientation (if Verbalized by the Patient): Straight or Heterosexual Spiritual care concerns: No Exam Narrative: GENERAL: Uncomfortable appearing but not any acute physical distress HEAD: [Normocephalic, atraumatic.] EYES: [PERRLA and EOMI.] ENT: Nares clear, no rhinorrhea or epistaxis. Mucous membranes moist. NECK: Supple. CHEST: [Clear to auscultation. No respiratory distress.] HEART: [Regular rate and rhythm]. No murmur heard. [Normal peripheral pulses.] ABDOMEN: Soft and nondistended, tender to palpation diffusely with more tenderness in the right lower quadrant without any palpable masses or peritonitis, no rigidity or guarding EXTREMITIES: Normal range of motion. [No edema.] SKIN: Warm, dry, no rash. NEURO: [No focal deficits]. Alert and oriented [x3.] PSYCH: [Normal mood and affect.] Course Vital Signs Vital signs: Vital Signs Temperature 37.2 C 01/07/25 03:16 Pulse Rate 77 01/07/25 03:16 Respiratory Rate 22 H 01/07/25 03:16 Blood Pressure 143/91 H 01/07/25 03:16 Pulse Oximetry 100 01/07/25 03:16 Temperature 36.7 C 01/07/25 03:37 Pulse Rate 74 01/07/25 04:31 Respiratory Rate 22 H 01/07/25 04:31 Blood Pressure 145/94 H 01/07/25 04:31 Pulse Oximetry 99 01/07/25 04:31 Oxygen Delivery Nasal Cannula 01/07/25 04:18 Oxygen Flow Rate 2 01/07/25 04:18 MDM - Abdominal Pain MDM Narrative Medical decision making narrative: 44-year-old male with a past medical history including gastritis, previous Jim fundoplication, previous partial small-bowel obstruction. Patient presents to the emergency department with complaints of right lower quadrant abdominal pain, nausea and vomiting. Last bowel movement was over a day ago and previous to this was normal. Was admitted to the hospital last month for a small-bowel obstruction that was partial in nature and did not require any surgical interventions, treated conservatively and resolved. Patient states his symptoms feel very similar to that time and he has not had any interval hospitalizations or surgical interventions. He did have an endoscopy during his previous hospitalization digits showed severe gastritis. Denies any fever, chills, back pain, chest pain, shortness of breath. Examination shows a tender abdomen diffusely with more tenderness in the right lower quadrant but no signs of peritonitis or underlying masses. Mildly hypertensive but no tachycardia, fever or hypoxia. He did have an episode of low oxygen while he was sleeping so we did place him on some supplemental oxygen but he is awake alert talking without any respiratory complaints. Given his surgical history and previous partial small-bowel obstruction we were concerned for a full small-bowel obstruction, recurrence of a partial obstruction, intra-abdominal infection or abscess, appendicitis, diverticulitis, colitis. CT scan with contrast was obtained, CBC, CMP, urinalysis and lipase ordered. He was given Dilaudid, Zofran fluids. CT scan shows small bowel obstruction with transition point. Mild leukocytosis of 10.7, no signs of dehydration normal electrolytes. Spoke to my general surgeon Dr. Stanley who will be on consult. NG tube was ordered and attempted at bedside but previously had multiple attempts and unsuccessful NG tube placement. Patient placed on fluids, made NPO, pain medicines ordered p.r.n. and I discussed the case with the hospitalist Dr. Lee who accepted the patient to a medical-surgical bed at this time. Medical Records Attestation: I reviewed the patient's medical records. Lab Data Attestation: I reviewed the patient's lab results. 01/07/25 03:40 01/07/25 03:40 Labs: Lab Results 01/07/25 Range/Units 03:40 WBC 10.7 H (4.5-10.0) K/mm3 RBC 5.14 (4.6-6.20) M/mm3 Hgb 15.5 (14.0-18.0) g/dL Hct 45.4 (42.0-52.0) % MCV 88.3 (80-100) fl MCH 30.2 (26-34) pg MCHC 34.1 (32-36) g/dl RDW 13.2 (11.5-14.5) % Plt Count 309 (150-375) k/mm3 MPV 10.0 (7.4-10.4) fl Immature Gran % (Auto) 0.5 (0-0.5) % Neut % (Auto) 77.6 H (45.5-73.1) % Lymph % (Auto) 15.8 L (18.3-44.2) % [place] % (Auto) 5.5 (2.6-8.5) % Eos % (Auto) 0.3 (0-4.4) % Baso % (Auto) 0.3 (0.2-1.2) % Lymph # (Auto) 1.69 (0.9-3.2) K/mm3 [place] # (Auto) 0.6 (0.1-0.6) K/mm3 Eos # (Auto) 0.0 (0-0.3) K/mm3 Baso # (Auto) 0.0 (0.0-0.1) K/mm3 Abs Immat Gran (auto) 0.05 H (0.00-0.031) K/mm3 Absolute Neuts (auto) 8.3 H (1.3-6.7) K/mm3 Absolute Nucleated RBC 0.000 (0.0-0.012) K/mm3 Nucleated RBC % 0.0 (0.0-0.2) % Sodium 141 (137-145) mmol/L Potassium 3.5 (3.4-5.0) mmol/L Chloride 106 (98-107) mmol/L Carbon Dioxide 18 L (22-30) mmol/L Anion Gap 17 H (4-12) mmol/L BUN 15 D (9-20) mg/dL Creatinine 0.85 (0.7-1.3) mg/dL Estim Creat Clear Calc 84 ml/min Estimated GFR > 60 (59 - ) Glucose 158 H (65-110) mg/dL Calcium 10.6 H (8.4-10.2) mg/dL Total Bilirubin 1.0 (0.2-1.3) mg/dL AST 48 (17-59) U/L ALT 40 (6-50) U/L Alkaline Phosphatase 93 (38-126) U/L Total Protein 8.8 H (6.3-8.2) g/dL Albumin 5.0 (3.5-5.1) g/dL Lipase 61 (23-300) U/L Imaging Data Attestation: I personally reviewed and interpreted this imaging study as follows: My impression: Impressions Abdomen/Pelvis CT 01/07/25 05:59 Impression: Small bowel obstruction, transition point in the left pelvis. No obstructing mass evident. Possible wall thickening gastric antrum and proximal duodenum versus peristalsis. Correlate for gastritis or peptic ulcer disease. Large fat-containing left inguinal hernia, as detailed above. Stable markedly dilated distal esophagus with mild wall thickening. Radiologist's impression: ITS Impressions Abdomen/Pelvis CT 01/07/25 05:59 Impression: Small bowel obstruction, transition point in the left pelvis. No obstructing mass evident. Possible wall thickening gastric antrum and proximal duodenum versus peristalsis. Correlate for gastritis or peptic ulcer disease. Large fat-containing left inguinal hernia, as detailed above. Stable markedly dilated distal esophagus with mild wall thickening. Critical Care Time Critical Care Time Critical Care Time: Yes Total Critical Care Time: 35 Discharge Plan Discharge Clinical Impression: Complete small bowel obstruction, Erosive esophagitis Abdominal pain Qualifiers: Abdominal location: right lower quadrant Qualified Code(s): R10.31 - Right lower quadrant pain Patient Disposition: Still a Patient Condition: Stable Instructions: Antibiotic Form Patient Language: Luxembourgish Prescriptions: No Action No Home Medications Follow-up/Referrals: PHYSICIAN,SUPERIOR COURT JUSTICE [Primary Care Provider] - Time of Disposition: 06:43
--- NOTE | 2025-01-07 06:58 | PC.NURSE ---
Unsuccessful NG placement x2 by this RN verified by [facility] XR. EDP Dr. Mcrae made aware.
[2025-01-07] MEDS: LACTATED RINGERS 1,000 ML 125 ML IV CONT ×3 (07:57→23:56)
--- NOTE | 2025-01-07 08:11 | PC.NURSE ---
patient being admitted with IVF infusing per order
[2025-01-07 08:16] LABS: Add Urine Microscopic? YES; Appearance Urine Clear (Clear); Glucose Urine UA Negative (Negative); Leukocyte Esterase Ur Negative LEU/UL (Negative); Nitrate Urine Negative (Negative); Specific Grav Ur > 1.045 (1.001-1.035)
--- NOTE | 2025-01-07 08:33 | P.HP_ITS ---
H&P: HPI History of Present Illness Date/Time: 01/07/25 08:33 Chief Complaint: Abdominal Pain Narrative: Sue Rayo is a 44-year-old Male with a pmhx of SBO, gastritis, hiatal hernia, esophageal stricture who presents to the hospital for RLQ abd pain, n/v that started at approximately 10:00 p.m. last night. He was admitted to the hospital in 12/16 for SBO, but was treated conservatively with medical management at the time. Patient presented approximately 1 month ago for partial small-bowel obstruction. General surgery GI consult the time and the patient EGD which showed severe gastritis and retained food and secretions seen in the mid/distal esophagus. He was advised to follow-up with the GI Clinic but was unable to get in for an appointment before being seen today. His last bowel movement was yes terday, 1 episode of emesis this morning. In ED: 143/91, 37.2C, 74 HR, 22RR, 100% on 2L NC WBC 10 7, H&H WNL, Na 141, K 3.5, c/o 18, anion gap 17, creatinine 0.85, glucose 185 UA: sp gravity >1.045, 2+ Protein, Trace ketones CT Abd/pelvis: Small bowel obstruction, transition point in the left pelvis. No obstructing mass evident. Possible wall thickening gastric antrum and proximal duodenum versus peristalsis. Correlate for gastritis or peptic ulcer disease. Large fat-containing left inguinal hernia, as detailed above. Stable markedly dilated distal esophagus with mild wall thickening. Review of Systems Review of Systems: All systems reviewed & are unremarkable except as noted in HPI and below PMFSH Past Medical History Medical History Erosive esophagitis Epigastric abdominal pain Family History Family History Father Diabetes mellitus Social History Social History Smoking status: Never smoker Second hand tobacco smoke exposure: Yes (mother) Alcohol intake: never Substance use: never Substance use type: does not use Do You Feel Safe in your Home?: Yes Lack of Transportation: No Lack of Food: Never True Current Housing: I Have Housing Concerned About Future Housing: No Difficulty Paying Gas/Electric Bills: No Difficulty Paying for Meds: No Currently Unemployed: No Education: High School Diploma/GED Difficulty w/ Childcare or Family Care: No Gender identity (if verbalized by the patient): Male Sexual Orientation (if Verbalized by the Patient): Straight or Heterosexual Spiritual care concerns: No Meds Home Medications and Allergies Home Medications ?Medication ?Instructions ?Recorded ?Confirmed ?Type No Home Medications 12/30/20 01/07/25 History Allergies Allergy/AdvReac Type Severity Reaction Status Date / Time morphine Allergy Unknown Rash Verified 01/07/25 09:14 Vital Signs Vital Signs - 24 hr 01/07/25 03:16 01/07/25 03:37 01/07/25 03:54 Temperature 98.9 F 98.0 F Pulse Rate 77 73 72 Respiratory Rate 22 H 16 16 Blood Pressure 143/91 H 141/95 H 136/87 Pulse Oximetry 100 100 95 Oxygen Delivery Room Air Oxygen Flow Rate 01/07/25 04:00 01/07/25 04:18 01/07/25 04:31 Temperature Pulse Rate 71 74 Respiratory Rate 22 H 22 H Blood Pressure 134/88 145/94 H Pulse Oximetry 98 98 99 Oxygen Delivery Nasal Cannula Oxygen Flow Rate 2 01/07/25 05:00 01/07/25 05:02 01/07/25 05:25 Temperature Pulse Rate 76 100 75 Respiratory Rate 26 H 28 H 23 H Blood Pressure 130/97 H Pulse Oximetry 100 100 100 Oxygen Delivery Oxygen Flow Rate 01/07/25 05:26 01/07/25 05:30 01/07/25 05:31 Temperature Pulse Rate 79 84 80 Respiratory Rate 27 H 10 L 12 Blood Pressure 136/94 H 134/95 H Pulse Oximetry 100 98 98 Oxygen Delivery Oxygen Flow Rate 01/07/25 05:45 01/07/25 06:00 01/07/25 06:01 Temperature Pulse Rate 72 77 73 Respiratory Rate 6 L 13 13 Blood Pressure 128/84 Pulse Oximetry 96 97 98 Oxygen Delivery Oxygen Flow Rate 01/07/25 07:24 01/07/25 08:02 01/07/25 08:02 Temperature 98.2 F Pulse Rate 83 66 Respiratory Rate 17 20 Blood Pressure 120/72 114/78 Pulse Oximetry 98 97 Oxygen Delivery Oxygen Flow Rate Exam Narrative: Gen - well appearing male in no acute respiratory distress who is nontoxic- appearing lying semi recumbent in bed HEENT - normocephalic. Pupils equal round and reactive. Extraocular motions intact. Sclera clear and anicteric. Nares patent. Moist mucous membranes. Neck - neck was supple. No dominant adenopathy, thyromegaly or masses. Chest - lungs are clear to auscultation bilaterally. No wheezes or crackles. CV - heart was regular rate and rhythm. S1-S2. No murmurs gallops or rubs. Abd - abdomen was soft. tender to palpation diffusely with more tenderness in the right lower quadrant without any palpable masses or peritonitis Nondistended. Positive bowel sounds. Ext - no clubbing, cyanosis or edema. 2+ DP pulses bilaterally. Neuro - patient is alert and oriented x4. Strength is 5/5 in both upper and lower extremities. Speech is clear. Psych - normal mood and affect. Patient is pleasant and cooperative. Skin - warm and dry. No rashes noted. H&P: Results Labs Labs: Short CBC 01/07/25 Range/Units 03:40 WBC 10.7 H (4.5-10.0) K/mm3 Hgb 15.5 (14.0-18.0) g/dL Hct 45.4 (42.0-52.0) % Plt Count 309 (150-375) k/mm3 BMP 01/07/25 03:40 Sodium 141 Potassium 3.5 Chloride 106 Carbon Dioxide 18 L BUN 15 D Creatinine 0.85 Glucose 158 H Calcium 10.6 H Liver Function 01/07/25 Range/Units 03:40 Total Bilirubin 1.0 (0.2-1.3) mg/dL AST 48 (17-59) U/L ALT 40 (6-50) U/L Alkaline Phosphatase 93 (38-126) U/L Albumin 5.0 (3.5-5.1) g/dL Assessment and Plan Assessment and plan (1) Small bowel obstruction: Code(s): K56.609 - Unspecified intestinal obstruction, unspecified as to partial versus complete obstruction Status: Acute Assessment and Plan: * Monitor I&Os, vital signs * Monitor serum electrolytes and CBC * NG tube placement attempted in ER, but unsuccessful * Gentle IV fluid resuscitation given the patient's NPO status * P.r.n. Anti emetics, avoid reglan * Gen Surg and GI consult pending * NPO diet ordered (2) Abdominal pain: Code(s): R10.9 - Unspecified abdominal pain Status: Acute Assessment and Plan: * See above (3) Esophageal abnormality: Code(s): K22.9 - Disease of esophagus, unspecified Status: Acute Assessment and Plan: * Per GI note on last admission: This patient has a severe, chronic esophageal dysmotility that resembles achalasia, that could be originated from his remote Jim fundoplication. The only solution for this patient is a formal diagnosis to confirm if this is achalasia, and surgical treatment might be indicated. Will put a referral for [facility] motility studies. The patient is uninsured so this might be a problem. From a medical standpoint there is no pharmacological options that we can offer for this patient. * GI consult pending, appreciate further recommendations Plan Code status: Full code per patient DVT prophylaxis: SCDs Stress ulcer prophylaxis: Not indicated at this time Quality VTE Prophylaxis VTE prophylaxis: mechanical ordered
--- NOTE | 2025-01-07 09:01 | ADMGEN ---
This patient, Sue Rayo, was admitted to 2 Medical Room 255-. Patient/family oriented to hospital policies and general routines including ID bracelet, bed and alarms, visiting hours, pain management, procedures, bathroom and other care routines, personal items, smoking policy, room service/diet, and visiting hours. Information on how to activate the Rapid Response Team has been discussed. Patient/Family are encouraged to report perceived risks to care and to ask questions if they do not understand what they are told or what they should do.
[2025-01-07] MEDS: PANTOPRAZOLE SODIUM IV 40 MG VIAL IV PUSH (09:11)
--- NOTE | 2025-01-07 09:44 | P.CONS_ITS ---
Assessment and Plan Assessment and plan (1) Small bowel obstruction: Code(s): K56.609 - Unspecified intestinal obstruction, unspecified as to partial versus complete obstruction Status: Acute Assessment and Plan: Patient presented with RLQ pain and associated nausea and vomiting that started last night around 10 pm. He presented to the ED this morning and CT demonstrated small bowel obstruction, transition point in the left pelvis. No obstructing mass evident. Slight leukocytosis at 10.7. NG tube placement attempted, but unsuccessful. Will plan to keep patient NPO today. Continue bowel rest, IV fluids, and pain and nausea control. May consider advancing to clear liquids tonight or tomorrow. (2) Esophageal abnormality: Code(s): K22.9 - Disease of esophagus, unspecified Status: Acute Assessment and Plan: EGD on 12/14 demonstrated a large amount of retained food and secretions in the esophagus, as well as severe diffuse chronic erosive gastritis. [facility] referred to [facility] when he was here last month. Patient has not been able to see them yet. GI on board this admission as well. Continue per their recs. Plan Discussed patient's case and plan of care with Dr. Stanley. [facility] Data of Consult Date/Time: 01/07/25 09:44 Requesting Physician: Rena Lee MD Primary Care Provider: INCIDENT ENGINEER PHYSICIAN Consult Narrative Reason for consult: Small bowel obstruction Narrative: Sue Rayo is a 44 year old male with history of recurrent hiatal hernia (Jim fundoplication 20+ years ago in [place]), gastritis, esophageal stricture, and SBO who we have been asked to see in surgical consultation for small bowel obstruction. Patient is primarily Bulgarian-speaking. Patient's , Antonella, is present at bedside to translate. Patient states the pain 1st started last night in the right lower quadrant of his abdomen around 10:00 p.m. He also noted associated nausea and vomiting. Patient was admitted to the hospital last month under the care of Dr. Bennett for partial small bowel obstruction that was treated conservatively. He also had a endoscopy performed during his previous hospitalization that revealed severe gastritis in a significant amount of food retained in the esophagus. GI referred him to [facility] for further motility studies. at bedside states that they showed up to the office but that nobody was there. They have not followed up since then. Patient's last bowel movement was yesterday. He last vomited while in the ED this morning. No hematemesis or hematochezia. Past abdominal surgery includes Jim fundoplication 20+ years ago in [place]. Upon admission to the ED, CT revealed small bowel obstruction, transition point in the left pelvis. No obstructing mass evident. Possible wall thickening gastric antrum and proximal duodenum versus peristalsis. Correlate for gastritis or peptic ulcer disease. Large fat-containing left inguinal hernia, as detailed above. Stable markedly dilated distal esophagus with mild wall thickening. NG tube placement was attempted, but unsuccessful due to hiatal hernia causing the NG tube to be coiled in the stomach above the diaphragm. Labs revealed mild leukocytosis at 10.7. Currently NPO with Dilaudid for pain and Zofran for nausea. [facility] Past Medical History Medical History Erosive esophagitis Epigastric abdominal pain Family History Family History Father Diabetes mellitus Social History Social History Smoking status: Never smoker Second hand tobacco smoke exposure: Yes (mother) Alcohol intake: never Substance use: never Substance use type: does not use Do You Feel Safe in your Home?: Yes Lack of Transportation: No Lack of Food: Never True Current Housing: I Have Housing Concerned About Future Housing: No Difficulty Paying Gas/Electric Bills: No Difficulty Paying for Meds: No Currently Unemployed: No Education: High School Diploma/GED Difficulty w/ Childcare or Family Care: No Gender identity (if verbalized by the patient): Male Sexual Orientation (if Verbalized by the Patient): Straight or Heterosexual Spiritual care concerns: No Meds Home Medications and Allergies Home Medications ?Medication ?Instructions ?Recorded ?Confirmed ?Type No Home Medications 12/30/20 01/07/25 History Allergies Allergy/AdvReac Type Severity Reaction Status Date / Time morphine Allergy Unknown Rash Verified 01/07/25 09:14 Vital Signs Vital Signs - 24 hr 01/07/25 03:16 01/07/25 03:37 01/07/25 03:54 Temperature 98.9 F 98.0 F Pulse Rate 77 73 72 Respiratory Rate 22 H 16 16 Blood Pressure 143/91 H 141/95 H 136/87 Pulse Oximetry 100 100 95 Oxygen Delivery Room Air Oxygen Flow Rate 01/07/25 04:00 01/07/25 04:18 01/07/25 04:31 Temperature Pulse Rate 71 74 Respiratory Rate 22 H 22 H Blood Pressure 134/88 145/94 H Pulse Oximetry 98 98 99 Oxygen Delivery Nasal Cannula Oxygen Flow Rate 2 01/07/25 05:00 01/07/25 05:02 01/07/25 05:25 Temperature Pulse Rate 76 100 75 Respiratory Rate 26 H 28 H 23 H Blood Pressure 130/97 H Pulse Oximetry 100 100 100 Oxygen Delivery Oxygen Flow Rate 01/07/25 05:26 01/07/25 05:30 01/07/25 05:31 Temperature Pulse Rate 79 84 80 Respiratory Rate 27 H 10 L 12 Blood Pressure 136/94 H 134/95 H Pulse Oximetry 100 98 98 Oxygen Delivery Oxygen Flow Rate 01/07/25 05:45 01/07/25 06:00 01/07/25 06:01 Temperature Pulse Rate 72 77 73 Respiratory Rate 6 L 13 13 Blood Pressure 128/84 Pulse Oximetry 96 97 98 Oxygen Delivery Oxygen Flow Rate 01/07/25 07:24 01/07/25 08:02 01/07/25 08:02 Temperature 98.2 F Pulse Rate 83 66 Respiratory Rate 17 20 Blood Pressure 120/72 114/78 Pulse Oximetry 98 97 Oxygen Delivery Oxygen Flow Rate Exam 2 Const: General: comfortable and no acute distress Eyes: General: appearance normal, both eyes and all related structures Neck: Neck: supple Resp: Effort & Inspection: normal respiratory effort Cardio: Rate: regular rate GI: Inspection: distended GI Palp: Yes Firmness to palpation present (GI) and No Guarding due to palpation present (GI) Auscultation: normal bowel sounds Other: Tenderness to right lower quadrant. Mildly distended. Laparoscopic incision scars present to abdomen. Skin: General skin exam: normal color and no rashes or lesions noted Neuro: Speech: normal speech Extrem: General: normal to inspection Psych: Mental Status: mental status grossly normal Results Labs 01/07/25 03:40 01/07/25 03:40 Labs: Short CBC 01/07/25 Range/Units 03:40 WBC 10.7 H (4.5-10.0) K/mm3 Hgb 15.5 (14.0-18.0) g/dL Hct 45.4 (42.0-52.0) % Plt Count 309 (150-375) k/mm3 BMP 01/07/25 03:40 Sodium 141 Potassium 3.5 Chloride 106 Carbon Dioxide 18 L BUN 15 D Creatinine 0.85 Glucose 158 H Calcium 10.6 H Liver Function 01/07/25 Range/Units 03:40 Total Bilirubin 1.0 (0.2-1.3) mg/dL AST 48 (17-59) U/L ALT 40 (6-50) U/L Alkaline Phosphatase 93 (38-126) U/L Albumin 5.0 (3.5-5.1) g/dL Urine 01/07/25 Range/Units 07:26 Urine Color Yellow (Yellow) Urine Appearance Clear (Clear) Urine pH 8.5 (5.0-9.0) Ur Specific Fraser > 1.045 H (1.001-1.035) Urine Protein 2+ H (Negative) mg/dL Urine Glucose (UA) Negative (Negative) mg/dL
--- NOTE | 2025-01-07 17:50 | P.CONGI_ITS ---
Assessment and Plan Assessment and plan (1) Small bowel obstruction: Code(s): K56.609 - Unspecified intestinal obstruction, unspecified as to partial versus complete obstruction Status: Acute Assessment and Plan: clinically doing better surgery on board probably liquid diet tomorrow (2) Dilatation of esophagus: Code(s): K22.89 - Other specified disease of esophagus Status: Acute Assessment and Plan: had Jim years ago in [place] will need esophageal manometry and based on findings may need surgery- will need to make sure that he gets to schedule his procedure at [facility] (3) Nausea & vomiting: Code(s): R11.2 - Nausea with vomiting, unspecified Status: Acute Assessment and Plan: improved (4) Esophageal abnormality: Code(s): K22.9 - Disease of esophagus, unspecified Status: Acute (5) Abnormal CT scan: Code(s): R93.89 - Abnormal findings on diagnostic imaging of other specified body structures Status: Acute GI Consult Note Consult date/time: 01/07/25 17:50 Reason for consult: n/v, sbo HPI: Sue Rayo is a 44 year old male who is known to our service, recent hospitalization last month and egd showed dilated esophagus with retained food c/w chronic dysmotility (had what it seems to be jim fundoplication more than 20 years in [place])- he was referred to [facility] for manometry but unable to see physician (apparently they went to hospital but did not find office). He is back to hospital with n/v all night and also rlq pain, CT showed sbo, NGT attempted but unsuccessful, he is feeling better without no more nausea, he is passing gas. Review of Systems 2 Constitutional: Constitutional: Denies headache(s) and Denies weakness Eyes: Eyes: Denies blurry vision ENT: Reports Normal hearing present, Denies headache(s) and Denies neck pain Cardiovascular: Cardiovascular: Denies chest pain and Denies dyspnea Respiratory: Respiratory: Denies dyspnea Gastrointestinal: Gastrointestinal: Reports no additional gastrointestinal complaints Genitourinary: Genitourinary: Denies dysuria Musculoskeletal: Musculoskeletal: Denies neck pain Integumentary/Breasts: Skin/Breast: Denies dry skin Neurologic: Reports Normal hearing present, Denies headache(s) and Denies weakness Psychiatric: Psychiatric: Denies anxiety PMFSH Past Medical History Medical History Erosive esophagitis Epigastric abdominal pain Family History Family History Father Diabetes mellitus Social History Social History Smoking status: Never smoker Second hand tobacco smoke exposure: Yes (mother) Alcohol intake: never Substance use: never Substance use type: does not use Do You Feel Safe in your Home?: Yes Lack of Transportation: No Lack of Food: Never True Current Housing: I Have Housing Concerned About Future Housing: No Difficulty Paying Gas/Electric Bills: No Difficulty Paying for Meds: No Currently Unemployed: No Education: High School Diploma/GED Difficulty w/ Childcare or Family Care: No Gender identity (if verbalized by the patient): Male Sexual Orientation (if Verbalized by the Patient): Straight or Heterosexual Spiritual care concerns: No Meds Home Medications and Allergies Home Medications ?Medication ?Instructions ?Recorded ?Confirmed ?Type No Home Medications 12/30/20 01/07/25 History Allergies Allergy/AdvReac Type Severity Reaction Status Date / Time morphine Allergy Unknown Rash Verified 01/07/25 09:14 Vital Signs Vital Signs - 24 hr 01/07/25 03:16 01/07/25 03:37 01/07/25 03:54 Temperature 98.9 F 98.0 F Pulse Rate 77 73 72 Respiratory Rate 22 H 16 16 Blood Pressure 143/91 H 141/95 H 136/87 Pulse Oximetry 100 100 95 Oxygen Delivery Room Air Oxygen Flow Rate 01/07/25 04:00 01/07/25 04:18 01/07/25 04:31 Temperature Pulse Rate 71 74 Respiratory Rate 22 H 22 H Blood Pressure 134/88 145/94 H Pulse Oximetry 98 98 99 Oxygen Delivery Nasal Cannula Oxygen Flow Rate 2 01/07/25 05:00 01/07/25 05:02 01/07/25 05:25 Temperature Pulse Rate 76 100 75 Respiratory Rate 26 H 28 H 23 H Blood Pressure 130/97 H Pulse Oximetry 100 100 100 Oxygen Delivery Oxygen Flow Rate 01/07/25 05:26 01/07/25 05:30 01/07/25 05:31 Temperature Pulse Rate 79 84 80 Respiratory Rate 27 H 10 L 12 Blood Pressure 136/94 H 134/95 H Pulse Oximetry 100 98 98 Oxygen Delivery Oxygen Flow Rate 01/07/25 05:45 01/07/25 06:00 01/07/25 06:01 Temperature Pulse Rate 72 77 73 Respiratory Rate 6 L 13 13 Blood Pressure 128/84 Pulse Oximetry 96 97 98 Oxygen Delivery Oxygen Flow Rate 01/07/25 07:24 01/07/25 08:02 01/07/25 08:02 Temperature 98.2 F Pulse Rate 83 66 Respiratory Rate 17 20 Blood Pressure 120/72 114/78 Pulse Oximetry 98 97 Oxygen Delivery Oxygen Flow Rate 01/07/25 10:52 01/07/25 11:18 01/07/25 14:00 Temperature 98.2 F Pulse Rate 74 Respiratory Rate 18 Blood Pressure 126/84 Pulse Oximetry 95 97 Oxygen Delivery Room Air Room Air Oxygen Flow Rate Exam 2 Const: General: comfortable and no acute distress HENMT: Face/Nose/Sinus: Normal nares present Eyes: General: appearance normal, both eyes and all related structures Neck: Neck: supple Resp: Effort & Inspection: normal respiratory effort Cardio: Rate: regular rate GI: Inspection: distended GI Palp: Yes Firmness to palpation present (GI) and No Guarding due to palpation present (GI) Auscultation: normal bowel sounds Other: Tenderness to right lower quadrant. Mildly distended. Laparoscopic incision scars present to abdomen. Skin: General skin exam: normal color and no rashes or lesions noted Neuro: Speech: normal speech Motor exam (neuro): 5/5 motor strength present throughout Extrem: General: normal to inspection Psych: Mental Status: mental status grossly normal Results Labs 01/07/25 03:40 01/07/25 03:40 Labs: Short CBC 01/07/25 Range/Units 03:40 WBC 10.7 H (4.5-10.0) K/mm3 Hgb 15.5 (14.0-18.0) g/dL Hct 45.4 (42.0-52.0) % Plt Count 309 (150-375) k/mm3 BMP 01/07/25 03:40 Sodium 141 Potassium 3.5 Chloride 106 Carbon Dioxide 18 L BUN 15 D Creatinine 0.85 Glucose 158 H Calcium 10.6 H Liver Function 01/07/25 Range/Units 03:40 Total Bilirubin 1.0 (0.2-1.3) mg/dL AST 48 (17-59) U/L ALT 40 (6-50) U/L Alkaline Phosphatase 93 (38-126) U/L Albumin 5.0 (3.5-5.1) g/dL Urine 01/07/25 Range/Units 07:26 Urine Color Yellow (Yellow) Urine Appearance Clear (Clear) Urine pH 8.5 (5.0-9.0) Ur Specific Beatrice > 1.045 H (1.001-1.035) Urine Protein 2+ H (Negative) mg/dL Urine Glucose (UA) Negative (Negative) mg/dL
[2025-01-08 05:53] VITALS: BP 108/60; PULSE 78; RESP 16; TEMP 36.1; O2SAT 97
--- NOTE | 2025-01-08 07:30 | P.PNIM_ITS ---
Progress Note: A&P Assessment and Plan (1) Small bowel obstruction: Code(s): K56.609 - Unspecified intestinal obstruction, unspecified as to partial versus complete obstruction Status: Acute Assessment and Plan: * Monitor I&Os, vital signs * Monitor serum electrolytes and CBC * NG tube placement attempted in ER, but unsuccessful * Gentle IV fluid resuscitation given the patient's NPO status * P.r.n. Anti emetics, avoid reglan * Gen Surg consult pending * No obstructing mass evident * No concern for any immediate surgical intervention * advance diet to full liquids with dinner * Ok for discharge once tolerating solid food diet. 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 The only solution for this patient is a formal diagnosis to confirm if this is achalasia, and surgical treatment might be indicated. Will put a referral for [facility] motility studies. The patient is uninsured so this might be a problem. From a medical standpoint there is no pharmacological options that we can offer for this patient. * GI consult pending, appreciate further recommendations Plan Code status: Full code per patient DVT prophylaxis: SCDs Stress ulcer prophylaxis: Not indicated at this time Subjective Date/time seen: 01/08/25 07:30 Interval history: 44-year-old Male with a pmhx of SBO, gastritis, hiatal hernia, esophageal stricture who presents to the hospital for RLQ abd pain, n/v that started at approximately 10:00 p.m. last night. 01/08/2025 Patient sitting comfortably at bedside at time of exam. Denies any CP, SOB, n/v. Repeat XR shows no abnormalities. Endorses multiple bowel movements throughout last evening/this morning. Gen surg continues to follow - no surgical interventions at this time. Plan to advance diet as tolerated with hopeful discharge tomorrow once pt can tolerate regular diet. Review of Systems Review of Systems: All systems reviewed & are unremarkable except as noted in HPI and below Exam Narrative: Gen - well appearing male in no acute respiratory distress who is nontoxic- appearing lying semi recumbent in bed HEENT - normocephalic. Pupils equal round and reactive. Extraocular motions intact. Sclera clear and anicteric. Nares patent. Moist mucous membranes. Neck - neck was supple. No dominant adenopathy, thyromegaly or masses. Chest - lungs are clear to auscultation bilaterally. No wheezes or crackles. CV - heart was regular rate and rhythm. S1-S2. No murmurs gallops or rubs. Abd - abdomen was soft. tender to palpation diffusely with more tenderness in the right lower quadrant without any palpable masses or peritonitis Nondistended. Positive bowel sounds. Ext - no clubbing, cyanosis or edema. 2+ DP pulses bilaterally. Neuro - patient is alert and oriented x4. Strength is 5/5 in both upper and lower extremities. Speech is clear. Psych - normal mood and affect. Patient is pleasant and cooperative. Skin - warm and dry. No rashes noted. Objective Data Vital Signs Vital Signs: Vital Signs - 24 hr 01/07/25 08:02 01/07/25 08:02 01/07/25 10:52 Temperature 98.2 F Pulse Rate 66 Respiratory Rate 20 Blood Pressure 114/78 Pulse Oximetry 97 Oxygen Delivery Room Air 01/07/25 11:18 01/07/25 14:00 01/07/25 20:00 Temperature 98.2 F Pulse Rate 74 Respiratory Rate 18 Blood Pressure 126/84 Pulse Oximetry 95 97 Oxygen Delivery Room Air Room Air 01/07/25 20:37 01/07/25 21:29 01/08/25 05:53 Temperature 97 F L 97 F L Pulse Rate 68 78 Respiratory Rate 18 16 Blood Pressure 112/66 108/60 Pulse Oximetry 97 97 97 Oxygen Delivery Room Air Intake/Output Intake/Output: Intake & Output 01/05/25 01/06/25 01/07/25 01/08/25 23:59 23:59 23:59 23:59 Intake Total 2993.8 0 Balance 2993.8 0 Meds/Results Medications: Active Medications Generic Name Dose Route Start Last Admin Trade Name Freq PRN Reason Stop Dose Admin Acetaminophen 650 mg 01/07/25 06:37 Acetaminophen 325 Mg Tablet PO Q4H PRN Mild Pain (1-3) or Fever Hydromorphone HCl 0.5 mg 01/07/25 06:37 01/07/25 11:53 Hydromorphone Hcl Inj (*Crx) 2 Mg/Ml Vial IV PUSH 0.5 mg Q4H PRN Administration Pain Rated 7-10 Lactated Ringer's 1,000 mls @ 125 mls/hr 01/07/25 06:40 01/07/25 23:56 Lr - Lactated Ringers Iv IV CONT 125 mls/hr .Q8H WILLIAM Administration Ondansetron HCl 4 mg 01/07/25 06:37 01/07/25 11:53 Ondansetron Inj 4 Mg/2 Ml Vial IV PUSH 4 mg Q4H PRN Administration Nausea Pantoprazole Sodium 40 mg 01/07/25 09:00 01/07/25 09:11 Pantoprazole Sodium Iv 40 Mg Vial IV PUSH 40 mg QAM WILLIAM Administration Radiology Results: ITS Impressions Abdomen/Pelvis CT 01/07/25 05:59 Impression: Small bowel obstruction, transition point in the left pelvis. No obstructing mass evident. Possible wall thickening gastric antrum and proximal duodenum versus peristalsis. Correlate for gastritis or peptic ulcer disease. Large fat-containing left inguinal hernia, as detailed above. Stable markedly dilated distal esophagus with mild wall thickening. Abdomen X-Ray 01/07/25 07:04 IMPRESSION: 1: Large hiatal hernia with NG tube coiled in the stomach above the diaphragm. Labs Labs: Laboratory Results - last 24 hr 01/07/25 07:26 Urine Color Yellow Urine Appearance Clear Urine pH 8.5 Ur Specific Soldier > 1.045 H Urine Protein 2+ H Urine Glucose (UA) Negative Urine Ketones Trace H Ur Blood (Man) Negative Urine Nitrate Negative Urine Bilirubin Negative Urine Urobilinogen 1.0 Leukocyte Esterase Rfl Negative Urine RBC 0-2 Urine WBC None seen Ur Squamous Epith Cells None seen Urine Bacteria None seen Urine Casts ---- Quality VTE Prophylaxis VTE prophylaxis: mechanical ordered
[2025-01-08] MEDS: BISACODYL 10 MG SUPPOSITORY RECTAL (08:22)
[2025-01-08] MEDS: PANTOPRAZOLE SODIUM IV 40 MG VIAL IV PUSH (08:22)
[2025-01-08] MEDS: LACTATED RINGERS 1,000 ML 125 ML IV CONT ×2 (08:50→17:59)
[2025-01-08 09:59] LABS: Hematocrit 42.4 % (42.0-52.0); Hemoglobin 14.0 g/dL (14.0-18.0); Immature Granulocyte Percent A 0.3 % (0-0.5); Lymphocytes Absolute Auto 1.66 K/mm3 (0.9-3.2); Mean Corpuscular HGB Conc 33.0 g/dl (32-36); Mean Corpuscular Hemoglobin 30.0 pg (26-34); Mean Corpuscular Volume 90.8 fl (80-100); Nucleated Red Blood Cells Absolute Auto 0.000 K/mm3 (0.0-0.012); Nucleated Red Blood Cells Perc 0.0 % (0.0-0.2); Platelet Count Result 255 k/mm3 (150-375); Red Blood Count 4.67 M/mm3 (4.6-6.20); White Blood Count 7.1 K/mm3 (4.5-10.0)
[2025-01-08 10:22] LABS: Alanine Aminotransferase 31 U/L (6-50); Albumin Level 4.1 g/dL (3.5-5.1); Alkaline Phosphatase 55 U/L (38-126); Aspartate Amino Transferase 41 U/L (17-59); Bilirubin,Total 1.1 mg/dL (0.2-1.3); Blood Urea Nitrogen 11 mg/dL (9-20); Calcium 9.1 mg/dL (8.4-10.2); Carbon Dioxide 24 mmol/L (22-30); Estimated CRCL calculation 79 ml/min; Estimated Glomerular Filt Rate > 60; Glucose 144 mg/dL (65-110); Total Protein 7.0 g/dL (6.3-8.2)
[2025-01-08 10:40] LABS: Anion Gap 9 mmol/L (4-12); Chloride 105 mmol/L (98-107); Potassium 3.7 mmol/L (3.4-5.0); Sodium 138 mmol/L (137-145)
--- NOTE | 2025-01-08 11:33 | PM.PNGS ---
Progress Note: A&P Assessment and Plan (1) Small bowel obstruction: Code(s): K56.609 - Unspecified intestinal obstruction, unspecified as to partial versus complete obstruction Status: Acute Assessment and Plan: No nausea or vomiting overnight. Abdominal x-ray this morning showed no acute abnormalities, with nonobstructive bowel gas pattern. Stool seen throughout the colon and Dulcolax suppository given this morning. Patient has had multiple bowel movements since this time. No concern for any immediate surgical intervention. Plan to advance diet to full liquids with dinner. Ok for discharge once tolerating solid food diet. (2) Esophageal abnormality: Code(s): K22.9 - Disease of esophagus, unspecified Status: Acute Assessment and Plan: EGD on 12/14 demonstrated a large amount of retained food and secretions in the esophagus, as well as severe diffuse chronic erosive gastritis. Patient referred to [facility] when he was here last month. Patient has not been able to see them yet. GI on board this admission as well. Continue per their recs. Plan Discussed patient's case and plan of care with Dr. Stanley. Subjective Subjective Date/Time Seen: 01/08/25 11:33 Patient reports: no new complaints, tolerating liquids well and bowel movement Interval history: Patient is doing well today. Abdominal pain is decreased. Tolerating clear liquid diet without any nausea or vomiting. Abdominal x-ray this morning showed no acute abdominal abnormality. Nonobstructive bowel gas pattern with gas and stool seen throughout the colon. Dulcolax suppository given and patient has had multiple bowel movements since this time. Exam GI: GI Palp: Yes Soft to palpation, No Tenderness to palpation present (GI) and No Guarding due to palpation present (GI) Other: Mildly distended. Skin: General skin exam: normal color and no rashes or lesions noted Extrem: General: normal to inspection Psych: Mental Status: mental status grossly normal Objective Data Vital Signs Vital Signs: Vital Signs - 24 hr 01/07/25 14:00 01/07/25 20:00 01/07/25 20:37 Temperature 98.2 F Pulse Rate 74 Respiratory Rate 18 Blood Pressure 126/84 Pulse Oximetry 97 97 Oxygen Delivery Room Air Room Air 01/07/25 21:29 01/08/25 05:53 01/08/25 08:22 Temperature 97 F L 97 F L Pulse Rate 68 78 Respiratory Rate 18 16 Blood Pressure 112/66 108/60 Pulse Oximetry 97 97 Oxygen Delivery Room Air Intake/Output Intake/Output: Intake & Output 01/05/25 01/06/25 01/07/25 01/08/25 23:59 23:59 23:59 23:59 Intake Total 2993.8 1000 Balance 2993.8 1000 Meds/Results Medications: Active Medications Generic Name Dose Route Start Last Admin Trade Name Freq PRN Reason Stop Dose Admin Acetaminophen 650 mg 01/07/25 06:37 Acetaminophen 325 Mg Tablet PO Q4H PRN Mild Pain (1-3) or Fever Hydromorphone HCl 0.5 mg 01/07/25 06:37 01/07/25 11:53 Hydromorphone Hcl Inj (*Crx) 2 Mg/Ml Vial IV PUSH 0.5 mg Q4H PRN Administration Pain Rated 7-10 Lactated Ringer's 1,000 mls @ 125 mls/hr 01/07/25 06:40 01/08/25 08:50 Lr - Lactated Ringers Iv IV CONT 125 mls/hr .Q8H WILLIAM Administration Ondansetron HCl 4 mg 01/07/25 06:37 01/07/25 11:53 Ondansetron Inj 4 Mg/2 Ml Vial IV PUSH 4 mg Q4H PRN Administration Nausea Pantoprazole Sodium 40 mg 01/07/25 09:00 01/08/25 08:22 Pantoprazole Sodium Iv 40 Mg Vial IV PUSH 40 mg QAM WILLIAM Administration Polyethylene Glycol 17 gm 01/09/25 09:00 Polyethylene Glycol 3350 17 Gm Powd.Pack PO QAM WILLIAM Radiology Results: ITS Impressions Abdomen/Pelvis CT 01/07/25 05:59 Impression: Small bowel obstruction, transition point in the left pelvis. No obstructing mass evident. Possible wall thickening gastric antrum and proximal duodenum versus peristalsis. Correlate for gastritis or peptic ulcer disease. Large fat-containing left inguinal hernia, as detailed above. Stable markedly dilated distal esophagus with mild wall thickening. Abdomen X-Ray 01/08/25 07:58 IMPRESSION: 1. No acute abdominal abnormality. Labs Labs: Laboratory Results - last 24 hr 01/08/25 09:53 WBC 7.1 RBC 4.67 Hgb 14.0 Hct 42.4 MCV 90.8 MCH 30.0 MCHC 33.0 RDW 13.6 Plt Count 255 MPV 9.4 Immature Gran % (Auto) 0.3 Neut % (Auto) 68.2 Lymph % (Auto) 23.4 [place] % (Auto) 6.1 Eos % (Auto) 1.6 Baso % (Auto) 0.4 Lymph # (Auto) 1.66 [place] # (Auto) 0.4 Eos # (Auto) 0.1 Baso # (Auto) 0.0 Abs Immat Gran (auto) 0.02 Absolute Neuts (auto) 4.8 Absolute Nucleated RBC 0.000 Nucleated RBC % 0.0 Sodium 138 Potassium 3.7 Chloride 105 Carbon Dioxide 24 Anion Gap 9 BUN 11 Creatinine 0.80 Estim Creat Clear Calc 79 Estimated GFR > 60 Glucose 144 H Calcium 9.1 Total Bilirubin 1.1 AST 41 ALT 31 Alkaline Phosphatase 55 Total Protein 7.0 Albumin 4.1
[2025-01-08 14:00] VITALS: BP 119/70; PULSE 67; RESP 18; TEMP 36.2; O2SAT 100
--- NOTE | 2025-01-08 17:01 | WPDGIPROGNO ---
Progress Note: A&P Assessment and Plan (1) Partial small bowel obstruction: Code(s): K56.600 - Partial intestinal obstruction, unspecified as to cause Status: Acute Assessment and Plan: clinically resolved advance diet and probably go home tomorrow he also will need to get esophageal manometry at [facility], patient to call for appointment- assess for achalasia after esophageal surgery (2) Abdominal pain: Qualifiers: Abdominal location: right lower quadrant Qualified Code(s): R10.31 - Right lower quadrant pain Code(s): R10.9 - Unspecified abdominal pain Status: Acute (3) Dilatation of esophagus: Code(s): K22.89 - Other specified disease of esophagus Status: Acute (4) Abnormal CT scan: Code(s): R93.89 - Abnormal findings on diagnostic imaging of other specified body structures Status: Acute Subjective Date/time seen: 01/08/25 17:01 Interval history: back to baseline had BM, no abdominal pain and tolerated liquid diet Review of Systems Review of Systems: All systems reviewed & are unremarkable except as noted in HPI and below Exam Const: General: comfortable and no acute distress HENMT: Face/Nose/Sinus: Normal nares present Eyes: General: appearance normal, both eyes and all related structures Neck: Neck: no JVD Resp: Auscultation: clear to auscultation bilaterally Cardio: Rate: regular rate Rhythm: regular rhythm GI: Inspection: non-distended GI Palp: Yes Soft to palpation Skin: General skin exam: normal color Neuro: Speech: normal speech Extrem: General: normal to inspection Psych: Mental Status: mental status grossly normal Objective Data Vital Signs Vital Signs: Vital Signs - 24 hr 01/07/25 20:00 01/07/25 20:37 01/07/25 21:29 Temperature 97 F L Pulse Rate 68 Respiratory Rate 18 Blood Pressure 112/66 Pulse Oximetry 97 97 Oxygen Delivery Room Air Room Air 01/08/25 05:53 01/08/25 08:22 01/08/25 14:00 Temperature 97 F L 97.1 F L Pulse Rate 78 67 Respiratory Rate 16 18 Blood Pressure 108/60 119/70 Pulse Oximetry 97 100 Oxygen Delivery Room Air Intake/Output Intake/Output: Intake & Output 01/05/25 01/06/25 01/07/25 01/08/25 23:59 23:59 23:59 23:59 Intake Total 2993.8 1910 Balance 2993.8 1910 Meds/Results Medications: Active Medications Generic Name Dose Route Start Last Admin Trade Name Zuri PRN Reason Stop Dose Admin Acetaminophen 650 mg 01/07/25 06:37 Acetaminophen 325 Mg Tablet PO Q4H PRN Mild Pain (1-3) or Fever Hydromorphone HCl 0.5 mg 01/07/25 06:37 01/07/25 11:53 Hydromorphone Hcl Inj (*Crx) 2 Mg/Ml Vial IV PUSH 0.5 mg Q4H PRN Administration Pain Rated 7-10 Lactated Ringer's 1,000 mls @ 125 mls/hr 01/07/25 06:40 01/08/25 08:50 Lr - Lactated Ringers Iv IV CONT 125 mls/hr .Q8H WILLIAM Administration Ondansetron HCl 4 mg 01/07/25 06:37 01/07/25 11:53 Ondansetron Inj 4 Mg/2 Ml Vial IV PUSH 4 mg Q4H PRN Administration Nausea Pantoprazole Sodium 40 mg 01/07/25 09:00 01/08/25 08:22 Pantoprazole Sodium Iv 40 Mg Vial IV PUSH 40 mg QAM WILLIAM Administration Polyethylene Glycol 17 gm 01/09/25 09:00 Polyethylene Glycol 3350 17 Gm Powd.Pack PO QAM WILLIAM Radiology Results: ITS Impressions Abdomen/Pelvis CT 01/07/25 05:59 Impression: Small bowel obstruction, transition point in the left pelvis. No obstructing mass evident. Possible wall thickening gastric antrum and proximal duodenum versus peristalsis. Correlate for gastritis or peptic ulcer disease. Large fat-containing left inguinal hernia, as detailed above. Stable markedly dilated distal esophagus with mild wall thickening. Abdomen X-Ray 01/08/25 07:58 IMPRESSION: 1. No acute abdominal abnormality. Labs Labs: Laboratory Results - last 24 hr 01/08/25 09:53 WBC 7.1 RBC 4.67 Hgb 14.0 Hct 42.4 MCV 90.8 MCH 30.0 MCHC 33.0 RDW 13.6 Plt Count 255 MPV 9.4 Immature Gran % (Auto) 0.3 Neut % (Auto) 68.2 Lymph % (Auto) 23.4 [place] % (Auto) 6.1 Eos % (Auto) 1.6 Baso % (Auto) 0.4 Lymph # (Auto) 1.66 [place] # (Auto) 0.4 Eos # (Auto) 0.1 Baso # (Auto) 0.0 Abs Immat Gran (auto) 0.02 Absolute Neuts (auto) 4.8 Absolute Nucleated RBC 0.000 Nucleated RBC % 0.0 Sodium 138 Potassium 3.7 Chloride 105 Carbon Dioxide 24 Anion Gap 9 BUN 11 Creatinine 0.80 Estim Creat Clear Calc 79 Estimated GFR > 60 Glucose 144 H Calcium 9.1 Total Bilirubin 1.1 AST 41 ALT 31 Alkaline Phosphatase 55 Total Protein 7.0 Albumin 4.1
[2025-01-08 20:06] VITALS: BP 114/64; PULSE 63; RESP 18; TEMP 36.7; O2SAT 99
[2025-01-08 20:57] VITALS: O2SAT 97
[2025-01-09 04:44] VITALS: BP 104/55; PULSE 71; RESP 16; TEMP 36.9; O2SAT 96
[2025-01-09 05:13] LABS: Hematocrit 39.7 % (42.0-52.0); Hemoglobin 13.3 g/dL (14.0-18.0); Immature Granulocyte Percent A 0.2 % (0-0.5); Lymphocytes Absolute Auto 1.77 K/mm3 (0.9-3.2); Mean Corpuscular HGB Conc 33.5 g/dl (32-36); Mean Corpuscular Hemoglobin 30.4 pg (26-34); Mean Corpuscular Volume 90.6 fl (80-100); Nucleated Red Blood Cells Absolute Auto 0.000 K/mm3 (0.0-0.012); Nucleated Red Blood Cells Perc 0.0 % (0.0-0.2); Platelet Count Result 248 k/mm3 (150-375); Red Blood Count 4.38 M/mm3 (4.6-6.20); White Blood Count 4.3 K/mm3 (4.5-10.0)
[2025-01-09 05:37] LABS: Alanine Aminotransferase 22 U/L (6-50); Albumin Level 3.7 g/dL (3.5-5.1); Alkaline Phosphatase 48 U/L (38-126); Anion Gap 8 mmol/L (4-12); Aspartate Amino Transferase 28 U/L (17-59); Bilirubin,Total 0.8 mg/dL (0.2-1.3); Blood Urea Nitrogen 7 mg/dL (9-20); Calcium 8.9 mg/dL (8.4-10.2); Carbon Dioxide 24 mmol/L (22-30); Chloride 108 mmol/L (98-107); Estimated CRCL calculation 88 ml/min; Estimated Glomerular Filt Rate > 60; Glucose 98 mg/dL (65-110); Potassium 3.9 mmol/L (3.4-5.0); Sodium 140 mmol/L (137-145); Total Protein 6.4 g/dL (6.3-8.2)
[2025-01-09] MEDS: PANTOPRAZOLE 40 MG TABLET PO (10:19)
--- NOTE | 2025-01-09 13:57 | PM.PNGS ---
Progress Note: A&P Assessment and Plan (1) Small bowel obstruction: Code(s): K56.609 - Unspecified intestinal obstruction, unspecified as to partial versus complete obstruction Status: Acute Assessment and Plan: Resolved. Patient can resume regular diet from my perspective. He may wish to stay with soft foods due to the esophageal concerns. No evidence of persistent obstruction. We will sign off. Okay to discharge. No follow-up with general surgery needed regarding bowel obstruction. (2) Esophageal abnormality: Code(s): K22.9 - Disease of esophagus, unspecified Status: Acute Assessment and Plan: Plans per Dr. Thomas. He is concerned patient has achalasia or a stricture from his previous fundoplication. Has been referred to [facility] for esophageal manometry. Subjective Subjective Date/Time Seen: 01/09/25 13:57 Patient reports: feels better, tolerating a regular diet (Low-fiber diet), diarrhea (Having bowel movements pretty much every time after he eats.) and afebrile Review of Systems Review of Systems: All systems reviewed & are unremarkable except as noted in HPI and below (HPI) Exam Const: General: comfortable and no acute distress GI: Inspection: non-distended, scaphoid, scar and no visible herniation GI Palp: Yes Soft to palpation, No Tenderness to palpation present (GI), No Guarding due to palpation present (GI) and No Rebound tenderness present Objective Data Vital Signs Vital Signs: Vital Signs - 24 hr 01/08/25 14:00 01/08/25 20:00 01/08/25 20:06 Temperature 36.2 C L 36.7 C Pulse Rate 67 63 Respiratory Rate 18 18 Blood Pressure 119/70 114/64 Pulse Oximetry 100 99 Oxygen Delivery Room Air 01/08/25 20:57 01/09/25 04:44 01/09/25 08:18 Temperature 36.9 C Pulse Rate 71 Respiratory Rate 16 Blood Pressure 104/55 L Pulse Oximetry 97 96 Oxygen Delivery Room Air Room Air Intake/Output Intake/Output: Intake & Output 01/06/25 01/07/25 01/08/25 01/09/25 23:59 23:59 23:59 23:59 Intake Total 2993.8 3187 1290 Balance 2993.8 3187 1290 Meds/Results Medications: Active Medications Generic Name Dose Route Start Last Admin Trade Name Freq PRN Reason Stop Dose Admin Acetaminophen 650 mg 01/07/25 06:37 Acetaminophen 325 Mg Tablet PO Q4H PRN Mild Pain (1-3) or Fever Hydromorphone HCl 0.5 mg 01/07/25 06:37 01/07/25 11:53 Hydromorphone Hcl Inj (*Crx) 2 Mg/Ml Vial IV PUSH 0.5 mg Q4H PRN Administration Pain Rated 7-10 Lactated Ringer's 1,000 mls @ 125 mls/hr 01/07/25 06:40 01/08/25 17:59 Lr - Lactated Ringers Iv IV CONT 125 mls/hr .Q8H WILLIAM Administration Ondansetron HCl 4 mg 01/07/25 06:37 01/07/25 11:53 Ondansetron Inj 4 Mg/2 Ml Vial IV PUSH 4 mg Q4H PRN Administration Nausea Pantoprazole Sodium 40 mg 01/09/25 09:35 01/09/25 10:19 Pantoprazole 40 Mg Tablet PO 40 mg QAM WILLIAM Administration Polyethylene Glycol 17 gm 01/09/25 09:00 Polyethylene Glycol 3350 17 Gm Powd.Pack PO QAM WILLIAM Radiology Results: ITS Impressions Abdomen/Pelvis CT 01/07/25 05:59 Impression: Small bowel obstruction, transition point in the left pelvis. No obstructing mass evident. Possible wall thickening gastric antrum and proximal duodenum versus peristalsis. Correlate for gastritis or peptic ulcer disease. Large fat-containing left inguinal hernia, as detailed above. Stable markedly dilated distal esophagus with mild wall thickening. Abdomen X-Ray 01/08/25 07:58 IMPRESSION: 1. No acute abdominal abnormality. Labs Labs: Laboratory Results - last 24 hr 01/09/25 05:03 WBC 4.3 L RBC 4.38 L Hgb 13.3 L Hct 39.7 L MCV 90.6 MCH 30.4 MCHC 33.5 RDW 13.3 Plt Count 248 MPV 9.5 Immature Gran % (Auto) 0.2 Neut % (Auto) 40.7 L Lymph % (Auto) 41.4 [place] % (Auto) 10.5 H Eos % (Auto) 6.5 H Baso % (Auto) 0.7 Lymph # (Auto) 1.77 [place] # (Auto) 0.5 Eos # (Auto) 0.3 Baso # (Auto) 0.0 Abs Immat Gran (auto) 0.01 Absolute Neuts (auto) 1.7 Absolute Nucleated RBC 0.000 Nucleated RBC % 0.0 Sodium 140 Potassium 3.9 Chloride 108 H Carbon Dioxide 24 Anion Gap 8 BUN 7 L Creatinine 0.71 Estim Creat Clear Calc 88 Estimated GFR > 60 Glucose 98 Calcium 8.9 Total Bilirubin 0.8 AST 28 ALT 22 Alkaline Phosphatase 48 Total Protein 6.4 Albumin 3.7
[2025-01-09 14:10] VITALS: BP 105/72; PULSE 67; RESP 16; TEMP 36.1; O2SAT 100
--- NOTE | 2025-01-09 14:14 | PM.DS ---
DS: Admitting Diagnosis Discharge Date 0 01/09/2025 Admitting Diagnosis Small-bowel obstruction DS: Discharge Diagnosis Discharge Diagnosis (1) Small bowel obstruction: Code(s): K56.609 - Unspecified intestinal obstruction, unspecified as to partial versus complete obstruction Status: Acute (2) Abdominal pain: Code(s): R10.9 - Unspecified abdominal pain Status: Acute (3) Esophageal abnormality: Code(s): K22.9 - Disease of esophagus, unspecified Status: Acute DS: Summary Hospital Course Reason for hospitalization: Abdominal pain, nausea/vomiting Hospital Course: Sue Rayo is a 44-year-old Male with a pmhx of SBO, gastritis, hiatal hernia, esophageal stricture who presents to the hospital for RLQ abd pain, n/v that started at approximately 10:00 p.m. last night. He was admitted to the hospital in 12/16 for SBO, but was treated conservatively with medical management at the time. Patient presented approximately 1 month ago for partial small-bowel obstruction. General surgery GI consult the time and the patient EGD which showed severe gastritis and retained food and secretions seen in the mid/distal esophagus. He was advised to follow-up with the GI Clinic but was unable to get in for an appointment before being seen today. His last bowel movement was yesterday, 1 episode of emesis this morning. In ED: 143/91, 37.2C, 74 HR, 22RR, 100% on 2L NC WBC 10 7, H&H WNL, Na 141, K 3.5, c/o 18, anion gap 17, creatinine 0.85, glucose 185 UA: sp gravity >1.045, 2+ Protein, Trace ketones CT Abd/pelvis: Small bowel obstruction, transition point in the left pelvis. No obstructing mass evident. Possible wall thickening gastric antrum and proximal duodenum versus peristalsis. Correlate for gastritis or peptic ulcer disease. Large fat-containing left inguinal hernia, as detailed above. Stable markedly dilated distal esophagus with mild wall thickening. . General surgery consulted regarding small-bowel obstruction. Initial plan was to keep the patient NPO and to continue bowel rest, IV fluids, pain/nausea control. Plan to advance diet from clear liquids with the next 48 hours. GI consulted regarding esophageal abnormality. Agreed that patient will need to continue with plan of following up [facility] for esophageal manometry to assess for achalasia after esophageal surgery, but that there was no indication for interventions at this time from a GI standpoint. General surgery continued to follow throughout hospitalization, okayed advancing diet to soft foods. Evidence of persistent obstruction. Patient was able to intake food and liquids without any discomfort, nausea, or abdominal pain. He also has endorsed several bowel movements since being hospitalized without any difficulties, bleeding or pain. Patient is otherwise hemodynamically stable for discharge at this time. No indications for general surgery follow-up in the outpatient setting. He will be instructed to reschedule with [facility] for esophageal manometry. Patient is amenable to this plan. Status at Discharge Functional status at discharge: independent ambulation Overall status at discharge: patient is back to baseline Time Spent with Patient Time attestation: Total time spent providing and/or coordinating discharge services: 42 Exam Narrative: Gen - well appearing male in no acute respiratory distress who is nontoxic-appearing lying semi recumbent in bed HEENT - normocephalic. Pupils equal round and reactive. Extraocular motions intact. Sclera clear and anicteric. Nares patent. Moist mucous membranes. Neck - neck was supple. No dominant adenopathy, thyromegaly or masses. Chest - lungs are clear to auscultation bilaterally. No wheezes or crackles. CV - heart was regular rate and rhythm. S1-S2. No murmurs gallops or rubs. Abd - abdomen was soft. Nontender and nondistended, without any palpable masses or peritonitis Nondistended. Positive bowel sounds. Ext - no clubbing, cyanosis or edema. 2+ DP pulses bilaterally. Neuro - patient is alert and oriented x4. Strength is 5/5 in both upper and lower extremities. Speech is clear. Psych - normal mood and affect. Patient is pleasant and cooperative. Skin - warm and dry. No rashes noted. DS: Data Data Completed and Pending Labs on day of discharge: Labs from last 24 hours 01/09/25 05:03 WBC 4.3 L RBC 4.38 L Hgb 13.3 L Hct 39.7 L MCV 90.6 MCH 30.4 MCHC 33.5 RDW 13.3 Plt Count 248 MPV 9.5 Immature Gran % (Auto) 0.2 Neut % (Auto) 40.7 L Lymph % (Auto) 41.4 Barron % (Auto) 10.5 H Eos % (Auto) 6.5 H Baso % (Auto) 0.7 Lymph # (Auto) 1.77 Barron # (Auto) 0.5 Eos # (Auto) 0.3 Baso # (Auto) 0.0 Abs Immat Gran (auto) 0.01 Absolute Neuts (auto) 1.7 Absolute Nucleated RBC 0.000 Nucleated RBC % 0.0 Sodium 140 Potassium 3.9 Chloride 108 H Carbon Dioxide 24 Anion Gap 8 BUN 7 L Creatinine 0.71 Estim Creat Clear Calc 88 Estimated GFR > 60 Glucose 98 Calcium 8.9 Total Bilirubin 0.8 AST 28 ALT 22 Alkaline Phosphatase 48 Total Protein 6.4 Albumin 3.7 Discharge Plan Discharge Attending physician on discharge: Hollie Gary Consulting providers: Ant Hauser Discharging Clinician: Ant Hauser Anticipated Discharge Date/Time: 01/09/25 14:12 Patient Disposition: Home Activity: as tolerated Diet: other - see discharge instructions Discharge Instructions: Discharge disposition: Home, stable Take medications as prescribed Monitor blood pressures Take caution while standing, rising, or moving Change positions slowly taking a break between each position change If you standing feel dizzy sit back down and take a break Encouraged to continue with yearly vaccinations Return to the emergency department if he developed sudden shortness of breath, chest pain, nausea, vomiting, upset stomach or intractable diarrhea Return to the emergency department if you develop fever greater than 101.5 Follow-up with the primary care physician within 1-2 weeks Diet instructions: You may resume a regular diet, however you may want to consider sticking with a soft food diet for the next several days due to your esophageal concerns. Thank you for choosing [facility] for your healthcare needs Patient Language: Kazakh Stand Alone Forms: General Discharge Information Follow-up/Referrals: PHYSICIAN,SUPPORT ASSISTANT [Primary Care Provider] - Discharge Medications: Continued No Home Medications Date of admission: 01/07/25 06:37 Primary Care Provider: PHYSICIAN,SUPPORT ASSISTANT Admitting Provider: Rena Lee Attending physician on admission: Rena Lee Condition: Stable Quality VTE Prophylaxis VTE prophylaxis: mechanical ordered
== END 2025-01-09 14:40 | disposition home or self-care (01) | DRG 247 ==
LOC: ANHED 06:43 → ANH2MED 08:46 → ANH3MEDSUR 01-12 10:37
PROVIDERS: Admitting Provider General Practice; Emergency Provider Student in an Organized Health Care Education/Training Program; Visit Provider Physician Assistant
DX: K56.609 Unspecified intestinal obstruction, unspecified as to partial versus complete obstruction (principal); K22.89 Other specified disease of esophagus; R10.31 Right lower quadrant pain; R93.89 Abnormal findings on diagnostic imaging of other specified body structures; Z98.890 Other specified postprocedural states
CPT/HCPCS: 36415; 74019; 74177; 80053; 81001; 83690; 85025; 96361; 96374; 96375; 96376; 99285; A9270; J1171; J2405; J2470; J7120; Q9967